=== PATIENT | male | born 1925 | race Caucasian/White ===

== ENCOUNTER 2016-12-10 10:14 | Emergency (ER) | payer MEDICARE ==
[~2016-12-10] VITALS: Ht 182.9 cm; Wt 70.5 kg
[~2016-12-10 10:14] MED LIST: ACET650T46 PO; AMLO10TA3 PO; ASPI-973 PO; BISA10EN RC; CA C1TAB29 PO; CALC200T6 PO; CIPR250T3 PO; ESOM40CA41 PO; FINA5TAB9 PO; HYDR-4003 PO; LORA10CA PO; MULT-896 PO; PHEN-773 PO; TAMS0.4C98 PO; UBID1CAP52 PO
[2016-12-10 10:23] VITALS: BP 180/72; PULSE 84; RESP 16; O2SAT 99
--- NOTE | 2016-12-10 10:57 | ED.REPORT ---
HPI-General Illness Date of Service Dec 10, 2016 ED Provider: Mode Benavidez MD 89 y/o male with a hx of HTN, inclusion body myositis, esophageal strictures s/ p dilation, and chronic dysphagia s/p PEG tube presents to the ED complaining that his peg tube fell off this morning. Pt had the PEG tube placed August, and got it replaced last week by Dr. Longo, surgeon at [facility]. Pt states that the surgeon and nurses at [facility] did not use the proper equipment and procedure when replacing the tube causing it to recurrently fall out since that time. The patient's son talked to Dr. Longo who advised the pt to come in tomorrow but they refused because the PEG tube is his only method of nutrition and the wait would be too long. There are no other complaints or concerns at this time. Nursing Notes Stated Complaint: PEG TUBE FELL OUT Chief Complaint: Male Abdominal Pain Nursing Notes Reviewed: Yes Allergies: Coded Allergies: No Known Allergies (Verified Allergy, Unknown, 12/10/16) Scheduled Amlodipine (Amlodipine) 10 Mg Tablet 10 MG PO DAILY Aspirin (Aspirin) 81 Mg Tablet 81 MG PO DAILY Ca Cmb 1/Vit D3/B-6/FA/B12/Av (Vitamin D3-Aloe 1,000 Unit Tab) 1 Each Tablet 1 EACH PO BID Calcium Citrate (Calcium Citrate) 200 Mg Tablet 400 MG PO DAILY Ciprofloxacin (Ciprofloxacin) 250 Mg Tablet 250 MG PO BID Esomeprazole Magnesium (Nexium) 40 Mg Capsule.dr 40 MG PO DAILY Finasteride (Finasteride) 5 Mg Tablet 5 MG PO DAILY Loratadine (Claritin) 10 Mg Capsule 10 MG PO DAILY Multivitamin W-Minerals/Lutein (Centrum Silver Ultra Men's Tab) 1 Each Tablet 1 EACH PO DAILY Tamsulosin (Flomax) 0.4 Mg Capsule 0.4 MG PO DAILY Ubidecarenone/Vit E Acetate (Co Q-10 100 mg Softgel) 1 Each Capsule 1 EACH PO TID Scheduled PRN Acetaminophen Extended Release (Tylenol Arthritis Pain Extended-Release) 650 Mg Tablet.er 1,300 MG PO DAILY PRN PRN For Pain Bisacodyl (Bisacodyl Rectal) 10 Mg/30 Ml Enema 10 MG RC PRN PRN PRN For Constipation Hydrocodone-Acetaminophen 5-325 mg (Hydrocodone-Acetaminophen 5-325 mg) 1 Each Tablet 1-2 TABLET PO Q4H PRN PRN For Pain Phenazopyridine (Phenazopyridine) 100 Mg Tablet 100 MG PO TID PRN PRN painful urination General Time Seen by MD: 10:46 Chief Complaint Other (Peg tube fell out) Hx Obtained From: Patient Arrived By: Walk-in Sudden in Onset?: Yes Onset Occurred: 1 - 4 hours ago Symptom Duration: Since onset Severity: Current: No pain currently Severity: Maximum: No pain Recent Healthcare: Recent doctor visit Similar Sx Previous: Yes Past Medical History Past Medical History Notes: DNR with limited interventions Admitted December 01-2015 Past Medical History Myopathy Esophageal stricture status post dilation, and status post PEG tube History of malignant hypertension alternating a demand ischemia, moderate aortic stenosis 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 Physical Exam Vital Signs Vital Signs Date Time Temp Pulse Resp B/P Pulse Ox O2 Delivery O2 Flow Rate FiO2 12/10/16 14:13 84 14 166/71 98 Room Air 12/10/16 11:29 184/86 12/10/16 10:23 36.3 84 16 180/72 99 Room Air Initial VS: Reviewed, Vital signs abnormal Head / Eyes: Atraumatic, Normocephalic, PERRL ENT: Mucous membranes moist, Conjunctiva normal, No scleral icterus Neck: Supple, Full range of motion Respiratory: Breath sounds normal, Clear to auscultation, No respiratory distress Cardiovascular: Regular rate & rhythm, Heart sounds normal, Intact distal pulses Extremities: Vascular intact, Neuro intact, No swelling, No tenderness Skin: Warm, Dry, No cyanosis Neurologic: Alert, Oriented, Nonfocal Psychiatric: Mood/affect normal, Behavior normal, Normal thought content General/Constitutional: Awake, Alert, No acute distress, Well appearing, Cooperative, Not toxic appearing Abdomen: Atraumatic, Soft, Non-tender Stoma in mid abdomen. No surrounding erythema or discharge. Re-Eval/Medical Decision Med Decision/Clinical Course 89-year-old male history of PEG tube for one year with recent change of PEG tube 2 weeks ago by his surgeon. Since then it has been coming out frequently. It has been replaced by a surgeon. It came on again this morning and surgeon recommended in the admitted to their hospital for replacement. Patient declined. He decided to come here instead. He is requesting replacement of that in our ER. Our Endo team came and replaced the PEG tube. Patient felt much better and requested to go home. He will follow-up with his surgeon. Time of Eval: 13:15 Re-Evaluation/Progress Note: The endo team replaced the peg tube while in the ED. Time of Eval: 13:47 Re-Evaluation/Progress Note: Pt rechecked. Discussed lab and imaging results and diagnosis. Informed the pt of the plan to discharge. Pt understands and agrees with plan. F/U instructions and RTER warning given. All questions addressed. Counseled Regarding: Diagnosis, Need for follow-up, When/why to return to ED Discharge & Departure Primary Impression: PEG (percutaneous endoscopic gastrostomy) adjustment/replacement/removal Disposition: Home Discharge Condition All VS Reviewed: Yes Condition: Stable Patient Instructions: How to Use and Care for Your PEG Tube (ED) Additional Instructions: Call your surgeon if your peg tube falls out again. Return to the emergency department in case of new serious symptoms. Referrals: Wyatt Jeronimo MD (PCP) Scribe Attestation Portions of this note were transcribed by David Babb and Riccardo Dickerson. I, , personally performed the history, physical exam and medical decision-making;I reviewed and confirmed the accuracy of the information in the transcribed note. Signed by David Babb and Riccardo Dickerson, Scribe. 12/10/16 13:50 copies to: Wyatt Jeronimo MD, Ben M MD Dec 10, 2016 10:57 David Babb Dec 10, 2016 11:07 RICCARDO DICKERSON Dec 10, 2016 12:50
[2016-12-10 11:29] VITALS: BP 184/86
--- NOTE | 2016-12-10 13:45 | NUR ---
PT EVALUATED PER ER MD REQUEST FOR DISLODGED PEG TUBE. PT DESCRIBES FEEDING TUBE FELL OUT THIS AM AFTER REPLACEMENT YESTERDAY AT SURGEONS OFFICE. 24 FR G-TUBE NOTED ON TABLE BUT WHEN BALLOON TESTED THERE WAS NO LEAK NOTED. 16 FR KAUR NOTED IN STOMA ON MY ARRIVAL. AFTER DISCUSSION WITH PT AND ?SON RE: REPLACEMENT, KAUR CATH WAS REMOVED EASILY AND A 20 FR G-TUBE WAS PLACED. BALLOON FILLED WITH 10ML STERILE WATER. EXTERNAL BOLSTER ADJUSTED TO LIGHTLY TOUCH SKIN AROUND STOMA. NO BLEEDING NOTED AROUND STOMA AND TOLERATED WELL BY PT. SMALL DRY DRESSING PLACED AROUND DEVICE. EXTENSION TUBING FROM OLD G-TUBE WAS RETRIEVED AND FITTED TO NEW DEVICE. REPORT TO ER MD AFTER INSERTION TO PREPARE PT FOR DISCHARGE.
[2016-12-10 14:13] VITALS: BP 166/71; PULSE 84; RESP 14; O2SAT 98
== END 2016-12-10 14:14 | disposition home or self-care (01) ==
LOC: SED 10:14
DX: Z43.1 Encounter for attention to gastrostomy (principal); I10 Essential (primary) hypertension; E78.5 Hyperlipidemia, unspecified; Z79.82 Long term (current) use of aspirin; Z87.891 Personal history of nicotine dependence

== ENCOUNTER 2016-12-17 16:49 | Inpatient (IN) | payer MEDICARE ==
[~2016-12-17] VITALS: Ht 182.9 cm; Wt 68.5 kg
[2016-12-17 16:56] VITALS: BP 149/67; PULSE 79; RESP 16; O2SAT 100
[2016-12-17 18:12] VITALS: BP 171/72; PULSE 79; RESP 14; O2SAT 98
--- NOTE | 2016-12-17 18:26 | ED.REPORT ---
HPI-General Illness Date of Service December 17, 2016 ED Provider: Ji Ribeiro MD Patient is an 89 year old male who presents to the ED complaining of pain at the site of his previous PEG tube after a replacement a week and a half ago. Associated symptoms include drainage of pus onset one week ago and constipation. He denies fever, chills, nausea, vomiting, or any other symptoms. He had his PEG tube changed by Dr. Longo at [facility] but it came out that night. He then had a new tube inserted one week ago at [facility]. Nursing Notes Stated Complaint: ABDOMINAL PAIN Chief Complaint: Male Abdominal Pain Nursing Notes Reviewed: Yes Allergies: Coded Allergies: No Known Allergies (Verified Allergy, Unknown, 12/17/16) Scheduled Amlodipine (Amlodipine) 10 Mg Tablet 10 MG PO DAILY Aspirin (Aspirin) 81 Mg Tablet 81 MG PO DAILY Ca Cmb 1/Vit D3/B-6/FA/B12/Av (Vitamin D3-Aloe 1,000 Unit Tab) 1 Each Tablet 1 EACH PO BID Calcium Citrate (Calcium Citrate) 200 Mg Tablet 400 MG PO DAILY Ciprofloxacin (Ciprofloxacin) 250 Mg Tablet 250 MG PO BID Esomeprazole Magnesium (Nexium) 40 Mg Capsule.dr 40 MG PO DAILY Finasteride (Finasteride) 5 Mg Tablet 5 MG PO DAILY Loratadine (Claritin) 10 Mg Capsule 10 MG PO DAILY Multivitamin W-Minerals/Lutein (Centrum Silver Ultra Men's Tab) 1 Each Tablet 1 EACH PO DAILY Tamsulosin (Flomax) 0.4 Mg Capsule 0.4 MG PO DAILY Ubidecarenone/Vit E Acetate (Co Q-10 100 mg Softgel) 1 Each Capsule 1 EACH PO TID Scheduled PRN Acetaminophen Extended Release (Tylenol Arthritis Pain Extended-Release) 650 Mg Tablet.er 1,300 MG PO DAILY PRN PRN For Pain Bisacodyl (Bisacodyl Rectal) 10 Mg/30 Ml Enema 10 MG RC PRN PRN PRN For Constipation Hydrocodone-Acetaminophen 5-325 mg (Hydrocodone-Acetaminophen 5-325 mg) 1 Each Tablet 1-2 TABLET PO Q4H PRN PRN For Pain Phenazopyridine (Phenazopyridine) 100 Mg Tablet 100 MG PO TID PRN PRN painful urination General Time Seen by MD: 18:25 Chief Complaint Abdominal pain Hx Obtained From: Patient, Other family... 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 Physical Exam Vital Signs Vital Signs Date Time Temp Pulse Resp B/P Pulse Ox O2 Delivery O2 Flow Rate FiO2 12/17/16 18:12 36.8 79 14 171/72 98 Room Air 12/17/16 16:56 36.6 79 16 149/67 100 Room Air Initial VS: Reviewed General/Constitutional: Well-developed, Well-nourished Head / Eyes: Atraumatic, Normocephalic Neck: Full range of motion Skin: Warm, Dry, No cyanosis Neurologic: Alert, Oriented, Nonfocal Psychiatric: Mood/affect normal, Behavior normal, Normal thought content Respiratory / Chest: Breath sounds NL, Breath sounds = bilat, No respiratory distress Cardiovascular: Heart rate NL, Regular rhythm, Heart sounds NL, No gallop, No murmurs, No rubs Abdomen: Soft PEG tube present in mid abdomen. 6 cm of erythema and induration with several regions of pustular drainage. Interpretation & Diagnostics Lab Results Interpretation Result Diagram: 12/17/16193612/17/161936 Test 12/17/16 19:05 12/17/16 19:37 Urine Color Yellow (YELLOW) Urine Appearance Hazy (CLEAR,HAZY) Urine pH 8.0 (5.0-8.0) Urine Specific [place] 1.010 (1.003-1.035) Urine Protein Tracemg/dL (NEG,TRACE) Urine Glucose (UA) Negativemg/dL (NEGATIVE) Urine Ketones Negativemg/dL (NEGATIVE) Urine Occult Blood Negative (NEGATIVE) Urine Nitrite Positive (NEGATIVE) Urine Bilirubin Negative (NEGATIVE) Urine Urobilinogen Normalmg/dL (NORMAL) Urine Leukocyte Esterase Small (NEGATIVE) Urine RBC 3-10/hpf (0-2) Urine WBC >50/hpf (0-5) Urine Epithelial Cells Occasional/hpf (NONE-MOD) Urine Crystals Amorphous phosphates Urine Bacteria None/hpf (NONE-FEW) Urine Hyaline Casts None/lpf (NONE) Urine Granular Casts None seen (NONE SEEN) Urine Waxy Casts None seen (NONE SEEN) Urine Red Blood Cell Casts None seen (NONE SEEN) Urine White Blood Cell Casts None seen (NONE SEEN) Urine Mucus None seen (None Seen) Urine Trichomonas None seen (NONE SEEN) Urine Yeast None (NONE SEEN) Urine Culture Reflexed Indicated Hold Urine Received (Received) White Blood Count 6.1th/mm3 (3.8-10.1) Red Blood Count 2.82mil/mm3 (4.40-5.80) Hemoglobin 9.2g/dL (13.8-17.2) Hematocrit 27.9% (41.0-50.0) Mean Corpuscular Volume 98.9fL (81-100) Mean Corpuscular Hemoglobin 32.6pg (27.0-35.0) Mean Corpuscular Hemoglobin Concent 33.0% (32.0-37.0) Red Cell Distribution Width 13.1% (12.3-15.4) Platelet Count 210bil/L (150-400) Neutrophils (%) (Auto) 75.1% (40-74) Lymphocytes (%) (Auto) 13.3% (14-46) Monocytes (%) (Auto) 9.1% (4-12) Eosinophils (%) (Auto) 2.3% (0-5) Basophils (%) (Auto) 0.2% (0-3) Sodium Level 137mEq/L (134-144) Potassium Level 4.1mEq/L (3.5-5.2) Chloride Level 98mEq/L (97-108) Carbon Dioxide Level 26mmol/L (18-29) Blood Urea Nitrogen 32mg/dL (8-27) Creatinine 0.54mg/dL (0.76-1.27) Estimat Glomerular Filtration Rate 152mL/min (>59) Glucose Level 96mg/dL (60-99) Lactic Acid Level 0.7mmol/L (0.4-2.0) Calcium Level 9.1mg/dL (8.5-10.1) Magnesium Level 2.1mg/dL (1.6-2.6) Total Bilirubin 0.3mg/dL (0.0-1.2) Aspartate Amino Transf (AST/SGOT) 26U/L (0-50) Alanine Aminotransferase (ALT/SGPT) 31U/L (0-44) Alkaline Phosphatase 67U/L (25-160) Total Protein 7.1g/dL (6.4-8.4) Albumin 3.8g/dL (3.4-5.0) Lipase 16U/L (13-60) Hold Fisher Top Tube Received (Received) Lab Results Interpretation: US ABDOMEN: IMPRESSION: Presumed phlegmon as discussed above in the soft tissues adjacent to the PEG tube. As discussed there are rare complications of very long-standing percutaneous tubes which can induce neoplasm formation, most typically squamous cell carcinoma. Dictated by: Kwan West M.D. on 12/17/2016 at 20:51 Approved by: Kwan West M.D. on 12/17/2016 at 20:54 Procedures Incision & Drainage Abscess I & D Abscess: 27 G needle 2 cm superficial incision made. Large amount of discharge drained. Irrigated with saline and packed and covered Time: 21:23 Procedure Performed by: ED physician (Marisa Cintron) Consent / Setup / Site Prep: Informed consent provided, Consent from patient , Time-out performed, Hand hygiene observed Location of Abscess: Mid abdomen Local Anesthesia: Lidocaine 1% (7cc ) Pus Drained: Large Irrigation: Yes Post-Procedure / Complications: Packing placed, Culture obtained, Dressing applied, Condition improved, Tolerated procedure well, Patient stable Re-Eval/Medical Decision Med Decision/Clinical Course 89-year-old male with history of PEG tube presents with significant swelling, erythema about his PEG tube site after it was recently replaced. Here in the emergency department he is afebrile with stable vital signs. Soft tissue ultrasound demonstrated fluid collection consistent with abscess. Of note radiology interpretation discusses broad differential diagnosis though clinically this resembles abscess. Incision and drainage was performed as documented above and a significant amount of purulent material was drained. Laboratory studies notable as below: UA unconvincing for UTI no leuks hematocrit 27.9 improved from one mo ago BUN 32 creat 0.54 no sig electrolyte abnL Vancomycin, ceftriaxone and started given soft tissue infection associated cellulitis. Patient admitted to hospitalist service for further management. Time of Eval: 21:22 Re-Evaluation/Progress Note: Discussed plan for admission. Patient understands and agrees with plan. All questions addressed at this time. Consultation : Referral / Consult Name: Dhiraj Hensley MD Consulted With: Hospitalist Call Returned at: 21:21 Supervisor [employer]: Will see patient, Agrees with eval, Agrees with plan, Accepts admit Note: Discussed pt case. Accepts admit. Counseled Regarding: Diagnosis, Lab results, Need for admission Discharge & Departure Primary Impression: Abscess Additional Impressions: Cellulitis Site of cellulitis: other site Qualified Code: L03.818 - Cellulitis of other sites Status post insertion of percutaneous endoscopic gastrostomy (PEG) tube Leukocytosis Leukocytosis type: unspecified Qualified Code: D72.829 - Elevated white blood cell count, unspecified Disposition: ADMITTED TO HOSPITAL Referrals: Wyatt Jeronimo MD (PCP) Scribe Attestation Portions of this note were transcribed by Mary Lou Callahan. I, Dr. Ribeiro personally performed the history, physical exam and medical decision-making; I reviewed and confirmed the accuracy of the information in the transcribed note. Signed by: Mary Lou Callahan 12/17/16, 2200 copies to: Wyatt Jeronimo MD, Beck O MD December 17, 2016 18:26 MARY LOU CALLAHAN December 17, 2016 18:59
[2016-12-17 19:40] LABS: BASOPHILS % (AUTO) 0.2 % (0-3); EOSINOPHILS % (AUTO) 2.3 % (0-5); MONOCYTES % (AUTO) 9.1 % (4-12); Mean Corpuscular Hemoglobin 32.6 pg (27.0-35.0); Mean Corpuscular Volume 98.9 fL (81-100); NEUTROPHILS % (AUTO) 75.1 % (40-74); Platelet Count 210 bil/L (150-400)
[2016-12-17] MEDS ORDERED: HYDROmorphone 0.5 mg/0.5 mL iSecure Syringe IVPUSH ONE ×2 (19:50→21:40)
[2016-12-17 20:04] LABS: Magnesium 2.1 mg/dL (1.6-2.6)
--- NOTE | 2016-12-17 20:55 | DRSVH ---
PROCEDURE: US ABDOMEN, LIMITED ([id number]) INDICATIONS: asses for abscess about PEG tube site TECHNIQUE: Real-time focused scanning was performed of the abdomen, with image documentation. COMPARISON: None. FINDINGS: Within the subcutaneous fat layer of the abdominal wall adjacent to the area of the PEG tu be placement there is a complex ovoid combination of increased vascularity and scattered hypodensity in an area measuring up to 3.2 x 1.5 x 1.0 cm, which likely represents a manifestation of phlegmon in the setting of relatively short term PEG tube placement. An abscess is not found. In the setting o f long-term percutaneous tube placement neoplasm formation can occur. Please correlate clinically. Statistically infection is considered much more likely. IMPRESSION: Presumed phlegmon as discussed above in the soft tissues adjacent to the PEG tube. As d iscussed there are rare complications of very long-standing percutaneous tubes which can induce neopl asm formation, most typically squamous cell carcinoma. Dictated by: Kwan West M.D. on 12/17/2016 at 20:51 Approved by: Kwan West M.D. on 12/17/2016 at 20:54
[2016-12-17] MEDS ORDERED: cefTRIAXone Inj 2,000 MG in Dextrose 5% 50 ML IV STA (21:16)
[2016-12-17] MEDS ORDERED: Vancomycin Dose per Pharmacist XX ONE (21:20)
[2016-12-17] MEDS ORDERED: Alum-Mag Hydrox-Simeth 30 mL Suspension PO PRN ×2 (21:25→21:55)
[2016-12-17] MEDS ORDERED: Ondansetron 2 mg/mL 2 mL Inj IVPUSH PRN (21:25)
[2016-12-17] MEDS ORDERED: Polyethylene Glycol (PEG) 17 Gm Powder PO PRN (21:55)
[2016-12-17] MEDS ORDERED: Vancomycin Inj 1,000 MG in IV Premix 1 EACH IV ONE (22:00)
--- NOTE | 2016-12-17 22:24 | PCM.HPMED ---
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 He further complains of constipation in that same interim with only 1 very small difficult BM 4 days ago. He and his family attempted to manage the peg inflammation with neosporin gel but that proved inadequate to halt the progression of his likely cellulitis. He further complains of chills and weakness, he is unable to ambulate independently at baseline but can usually assist with transfers and has been unable to do so for the past few days. He denies chest pain, SOB, nausea, vomiting, diarrhea, or cough. In the ED a sample of the expressed purulent fluid from around the PEG site was sent for culture and sensitivity and the patient was started on Ceftriaxone and Vanco, and US of the LLQ mass was obtained that revealed a likely phlegmon. Review of Systems: Comprehensive ROS negative except as outlined above in the HPI Allergies Coded Allergies: No Known Allergies (Verified Allergy, Unknown, 12/17/16) Home Medications Scheduled Amlodipine (Amlodipine) 10 Mg Tablet 10 MG PO DAILY Aspirin (Aspirin) 81 Mg Tablet 81 MG PO DAILY Ca Cmb 1/Vit D3/B-6/FA/B12/Av (Vitamin D3-Aloe 1,000 Unit Tab) 1 Each Tablet 1 EACH PO BID Calcium Citrate (Calcium Citrate) 200 Mg Tablet 400 MG PO DAILY Ciprofloxacin (Ciprofloxacin) 250 Mg Tablet 250 MG PO BID Esomeprazole Magnesium (Nexium) 40 Mg Capsule.dr 40 MG PO DAILY Finasteride (Finasteride) 5 Mg Tablet 5 MG PO DAILY Loratadine (Claritin) 10 Mg Capsule 10 MG PO DAILY Multivitamin W-Minerals/Lutein (Centrum Silver Ultra Men's Tab) 1 Each Tablet 1 EACH PO DAILY Tamsulosin (Flomax) 0.4 Mg Capsule 0.4 MG PO DAILY Ubidecarenone/Vit E Acetate (Co Q-10 100 mg Softgel) 1 Each Capsule 1 EACH PO TID Scheduled PRN Acetaminophen Extended Release (Tylenol Arthritis Pain Extended-Release) 650 Mg Tablet.er 1,300 MG PO DAILY PRN PRN For Pain Bisacodyl (Bisacodyl Rectal) 10 Mg/30 Ml Enema 10 MG RC PRN PRN PRN For Constipation Hydrocodone-Acetaminophen 5-325 mg (Hydrocodone-Acetaminophen 5-325 mg) 1 Each Tablet 1-2 TABLET PO Q4H PRN PRN For Pain Phenazopyridine (Phenazopyridine) 100 Mg Tablet 100 MG PO TID PRN PRN painful urination PMH Myopathy Esophageal stricture status post dilation, and status post PEG tube History of malignant hypertension alternating a demand ischemia, moderate aortic stenosis 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 Reports: Hyperlipidemia, Hypertension Surgical History Esophageal dilation Back surgery 30 years ago Feeding tube Family History No relevant family history in this gentleman who has likely outlived any relevant history Social History Hx Alcohol Use: No Hx Substance Use: No Hx Tobacco Use: No Smoking Status: Former Smoker Exam Vital Signs Vital Sign - Last Date Time Temp Pulse Resp B/P Pulse Ox O2 Delivery O2 Flow Rate FiO2 12/17/16 18:12 36.8 79 14 171/72 98 Room Air Exam Gen: A/O x3 pleasant elderly gentleman in mild acute distress due to abdominal pain Neck: Supple, non tender, no JVD, no thyromegaly HEENT: PERRL, EOMI, mucous membranes slightly dry, no scleral icterus, no conjunctival pallor, hearing aids in place CV: RRR, loud 3/6 systolic ejection murmur best heard at right sternal border, no rubs or gallops Resp: Lungs CTA BL, no wheezing rales or rhonchi Abd: Tender to palpation in erythematous area surrounding PEG tube site, Thin bloody discharge from the PEG exit site, large roughly football sized and shaped firm rubbery mass in LLQ just superior to waistline, BS Diminished throughout Extr: mild BL LE edema, no cyanosis or clubbing Neuro: CN 2-12 grossly intact, no focal neurologic deficit Lab and Diagnostics Labs Item Value Date Time Red Blood Count 2.82 mil/mm3 L 12/17/161936 Neutrophils (%) (Auto) 75.1 % H 12/17/161936 Lymphocytes (%) (Auto) 13.3 % L 12/17/161936 Monocytes (%) (Auto) 9.1 % 12/17/161936 Eosinophils (%) (Auto) 2.3 % 12/17/161936 Basophils (%) (Auto) 0.2 % 12/17/161936 Estimat Glomerular Filtration Rate 152 mL/min 12/17/161936 Lactic Acid Level 0.7 mmol/L 12/17/161936 Calcium Level 9.1 mg/dL 12/17/161936 Magnesium Level 2.1 mg/dL 12/17/161936 Total Bilirubin 0.3 mg/dL 12/17/161936 Aspartate Amino Transf (AST/SGOT) 26 U/L 12/17/161936 Alanine Aminotransferase (ALT/SGPT) 31 U/L 12/17/161936 Alkaline Phosphatase 67 U/L 12/17/161936 Total Protein 7.1 g/dL 12/17/161936 Albumin 3.8 g/dL 12/17/161936 Lipase 16 U/L 12/17/161936 Result Diagram: 12/17/16193612/17/161936 Microbiology abscess drainage culture and sensitivity pending . Additional Diagnostics: PROCEDURE: US ABDOMEN, LIMITED IMPRESSION: Presumed phlegmon as discussed above in the soft tissues adjacent to the PEG tube. As discussed there are rare complications of very long- standing percutaneous tubes which can induce neoplasm formation, most typically squamous cell carcinoma. Dictated by: Kwan West M.D. on 12/17/2016 at 20:51 Approved by: Kwan West M.D. on 12/17/2016 at 20:54 . Assessment & Plan Rianna Lim is an 89 year old man with a PMH as listed above who presents with a 4 day history of pain and erythema around his PEG tube site, and associated growth of a LLQ mass with concordant constipation. 1. Cellulitis, present on admission, acute. Active -Vanco and Zosyn for broad coverage with C&S are processing -Consider surgical consult tomorrow AM to evaluate PEG tube -NS @ 100 ml/hr 2. LLQ mass, present on admission, acute. Active -US indicative of likely phlegmon -Given that the growth of this mass corresponds with the onset of constipation in this gentleman I am concerned that it may be partially obstructing his colon -CT abd and pelvis with contrast for further evaluation -may consider needle biopsy depending upon results of imaging 3. Constipation, present on admission, acute on chronic. Active -As above I am concerned there may be a may effect from his LLQ mass -Withold laxative or cathartic until this mass can be characterized. 4. HTN, present on admission, chronic. Active -Continue home Amlodipine 10 mg PO daily 5. BPH with chronic painful urination, present on admission, chronic. Active -Continue home Tamsulosin 0.4 mg -Continue home Phenazopurine 100 mg tid PRN -Continue home Finasteride 5 mg PO daily 6. Chronic GERD, present on admission, chronic. Active -Continue home Nexium -Maalox as needed Code Status: DNR/DNI Disposition: Inpatient, anticipated length of stay >2 midnights due to severity of condition and complexity of treatment plan. Pain Evaluation: Adequate Pain Control GI Prophylaxis: Proton Pump Inhibitor VTE Prophylaxis: Other (active bleeding from PEG tube site and possible hematoma vs phlegmon in LLQ make anticoagulation undesirable) VTE Mechanical Devices: Intermittant Pneumatic CD Resuscitation Status: DNR/DNI:Do Not Resuscitate/Intubate Attending Statement The patient was seen and examined together with Dr. Cedillo on 12/17 and I agree with the history, exam and plan as outlined in the note above. Hipolito Cedillo DO December 17, 2016 22:24 Dhiraj Hensley MD December 18, 2016 01:46
[2016-12-17 22:25] VITALS: BP 167/58; PULSE 83; RESP 18; O2SAT 98
[2016-12-17] MEDS ORDERED: Phenazopyridine 97.5 mg Tablet PO PRN (22:30)
[2016-12-17] MEDS: 0.9% Sodium Chloride 1,000 ML IV SCH (22:47)
[2016-12-17 22:48] LABS: APPEARANCE,URINE HAZY (CLEAR,HAZY); COLOR,URINE YELLOW (YELLOW); OCCULT BLOOD,URINE NEGATIVE (NEGATIVE)
[2016-12-17 22:49] LABS: UROBILINOGEN,URINE NORMAL (NORMAL)
--- NOTE | 2016-12-17 23:32 | NUR ---
Admission note Pt alert and oriented x 3. Understands use of call light and to make nurse aware of any needs. Denies pain. Pt reports that he takes his meds via his PEG tube at his care facility. notified. Orders received to use PEG tube for oral meds and oral contrast for CT later tonight. Pt is not clear on his current medications. Plan to notify the [facility] for current list. IV abx infusing. Pt is afebrile. Report given to Priti Hay RN.
[2016-12-18] MEDS: Sodium Chloride LOK Flush 10 mL Syringe IVFLUSH SCH ×3 (00:26→16:30)
[2016-12-18] MEDS: Piperacillin-Tazo 3.375 Gm Inj 3.375 GM in Dextrose 5% Minibag Plus 50 ML IV SCH ×3 (00:26→17:56)
--- NOTE | 2016-12-18 03:07 | PCM.CONPHA ---
Subjective Date of Service: December 18, 2016 Requesting Provider: Hipolito Cedillo DO Pain around PEG site History of Present Illness Cellulitis around PEG site Reason for Pharmacy Consult: Vancomycin Dosing Objective Assessment/Plan Assessment/Plan A/ - 89 y/o male patient required Vancomycin therapy to empirically cover cellulitis around his feeding tube - Afebrile, WBC: 6.1, blood cultures pending - In ED, patient received loading dose Vancomycin 1g @0030 12/18 and Rocephin - Comitant abx: Zosyn - Wt: 68.4 kg, ht: 182.8cm, SCr: 0.54 mg/dL, estimated clearance ~80 ml/min, BMI : 20.5 kg/m2, Vd ~48L, t1/2 ~ 10 hrs - Surgical consult in the morning P/ - Recommend Vancomycin 750mg iv q12h. Trough level ordered before 3rd dose @ 2230 today. This regimen would produce a trough around 13. Pharmacy will follow and make necessary adjustment Thank you for consulting clinical pharmacy in the care of this patient 12/19/2016 - Trough level came back at 12.7, appropriate to treat cellulitis. Will continue with current dose. - Plan to OR tomorrow for further exploration/drainage of infected site Noelle Guidyr December 18, 2016 03:07 Urine pH 8.0 (5.0-8.0) Urine Specific [place] 1.010 (1.003-1.035) Urine Protein Tracemg/dL (NEG,TRACE) Urine Glucose (UA) Negativemg/dL (NEGATIVE) Urine Ketones Negativemg/dL (NEGATIVE) Urine Occult Blood Negative (NEGATIVE) Urine Nitrite Positive (NEGATIVE) Urine Bilirubin Negative (NEGATIVE) Urine Urobilinogen Normalmg/dL (NORMAL) Urine Leukocyte Esterase Small (NEGATIVE) Urine RBC 3-10/hpf (0-2) Urine WBC >50/hpf (0-5) Urine Epithelial Cells Occasional/hpf (NONE-MOD) Urine Crystals Amorphous phosphates Urine Bacteria None/hpf (NONE-FEW) Urine Hyaline Casts None/lpf (NONE) Urine Granular Casts None seen (NONE SEEN) Urine Waxy Casts None seen (NONE SEEN) Urine Red Blood Cell Casts None seen (NONE SEEN) Urine White Blood Cell Casts None seen (NONE SEEN) Urine Mucus None seen (None Seen) Urine Trichomonas None seen (NONE SEEN) Urine Yeast None (NONE SEEN) Urine Culture Reflexed Indicated Hold Urine Received (Received) White Blood Count 6.1th/mm3 (3.8-10.1) Red Blood Count 2.82mil/mm3 (4.40-5.80) Hemoglobin 9.2g/dL (13.8-17.2) Hematocrit 27.9% (41.0-50.0) Mean Corpuscular Volume 98.9fL (81-100) Mean Corpuscular Hemoglobin 32.6pg (27.0-35.0) Mean Corpuscular Hemoglobin Concent 33.0% (32.0-37.0) Red Cell Distribution Width 13.1% (12.3-15.4) Platelet Count 210bil/L (150-400) Neutrophils (%) (Auto) 75.1% (40-74) Lymphocytes (%) (Auto) 13.3% (14-46) Monocytes (%) (Auto) 9.1% (4-12) Eosinophils (%) (Auto) 2.3% (0-5) Basophils (%) (Auto) 0.2% (0-3) Sodium Level 137mEq/L (134-144) Potassium Level 4.1mEq/L (3.5-5.2) Chloride Level 98mEq/L (97-108) Carbon Dioxide Level 26mmol/L (18-29) Blood Urea Nitrogen 32mg/dL (8-27) Creatinine 0.54mg/dL (0.76-1.27) Estimat Glomerular Filtration Rate 152mL/min (>59) Glucose Level 96mg/dL (60-99) Lactic Acid Level 0.7mmol/L (0.4-2.0) Calcium Level 9.1mg/dL (8.5-10.1) Magnesium Level 2.1mg/dL (1.6-2.6) Total Bilirubin 0.3mg/dL (0.0-1.2) Aspartate Amino Transf (AST/SGOT) 26U/L (0-50) Alanine Aminotransferase (ALT/SGPT) 31U/L (0-44) Alkaline Phosphatase 67U/L (25-160) Total Protein 7.1g/dL (6.4-8.4) Albumin 3.8g/dL (3.4-5.0) Lipase 16U/L (13-60) Hold Fisher Top Tube Received (Received) Noelle Guidry December 18, 2016 03:07
[2016-12-18 03:55] VITALS: BP 157/66; PULSE 71; RESP 16; O2SAT 97
--- NOTE | 2016-12-18 05:51 | NUR ---
Urinary retention Indwelling elizalde placed for urinary retention > 1000cc per bladder scan. Pt reports relief after placement, finally able to get some sleep. Med rec entered based on list sent from [facility]. Houlry rounding ongoing.
[2016-12-18 05:52] LABS: BASOPHILS % (AUTO) 0.2 % (0-3); EOSINOPHILS % (AUTO) 1.9 % (0-5); MONOCYTES % (AUTO) 8.8 % (4-12); Mean Corpuscular Hemoglobin 33.4 pg (27.0-35.0); NEUTROPHILS % (AUTO) 77.6 % (40-74); Platelet Count 196 bil/L (150-400)
[2016-12-18] MEDS ORDERED: ERYT1OIN7 OP (06:16)
[2016-12-18] MEDS ORDERED: LOPE2CAP PO (06:16)
[2016-12-18] MEDS ORDERED: OXYB5TAB10 PO (06:16)
[2016-12-18] MEDS ORDERED: TAMS0.4C98 PO (06:16)
[2016-12-18] MEDS ORDERED: ONDA-53 PO (06:16)
[2016-12-18] MEDS ORDERED: TERA5CAP6 PO (06:16)
[2016-12-18] MEDS ORDERED: AMLO5TAB2 PO (06:16)
[2016-12-18] MEDS ORDERED: HYDR30CR98 RC (06:16)
[2016-12-18] MEDS ORDERED: KEN1C EXT (06:16)
--- NOTE | 2016-12-18 08:22 | DRSVH ---
PROCEDURE: CT ABDOMEN AND PELVIS WITH CONTRAST ([id number]) INDICATIONS: LLQ mass TECHNIQUE: After the administration of oral and intravenous contrast, 5 mm thick sections acquired from the diap hragms to the symphysis. 5 mm thick coronal and sagittal reformats were performed. For radiation do se reduction, the following was used: automated exposure control, adjustment of mA and/or kV accordi ng to patient size. COMPARISON: [facility], CT, IVP-CT (ABD W/WO;PEL W/W/O), 06/07/2014, 9:23. FINDINGS: Image quality: Excellent. ABDOMEN: Lung bases: Lung bases show bibasilar subsegmental atelectasis. Heart size is normal. Solid organs: Liver and spleen are normal in size and enhancement. 2 subcentimeter areas of decrease d attenuation in the liver are unchanged and consistent with small 5 average cysts. Gallbladder is w ithin normal limits.. Biliary system is non-dilated. Pancreas enhances normally. No adrenal nodule s. Kidneys are normal in size and enhancement. There is bilateral mild hydronephrosis and hydrourete r to the bladder. A hydronephrosis and hydroureter are no findings since the previous CT. There is a 4 mm stone in the floor of the bladder on the left side. The bladder is mildly distended. The wall is minimally diffusely thickened. Peritoneum and bowel: Stomach shows a gastrotomy tube placed since the previous CT. The small bowel, and colon loops are normal in caliber and wall thickness. No free fluid or air. Multiple sigmoid d iverticula without diverticulitis are noted. Nodes and vessels: No retroperitoneal or mesenteric adenopathy. Aorta and inferior vena cava are no rmal in caliber. Miscellaneous: No ventral hernias. PELVIS: Genitourinary: The bladder is mildly distended and wall is mildly diffusely thickened. There is a st one in the dependent portion of the bladder on the left side. Prostate is prominently enlarged, nodul ar and heterogeneous in contrast enhancement. I do not appreciate any loss of fat planes around the p rostate or adenopathy in the pelvis or inguinal areas. Miscellaneous: No inguinal hernias or adenopathy. Bones: L4, L5, and S1 lower lumbar spine surgery has been performed. No vertebral body compression fr actures. IMPRESSION: 1. Mild bilateral hydronephrosis and hydroureter to the bladder. This is a new finding since the prec eding CT and 2014. Cause is not appreciated other than probable chronic outlet obstruction. Bladder is mildly distended. Wall of the bladder is mildly diffusely thickened. The prostate is diff usely prominently enlarged, heterogeneous, and nodular. No evidence for adenopathy or blastic lytic bone changes. 2. Gastrotomy tube, lumbar spine surgery, sigmoid diverticulosis are noted as well. Dictated by: Leodan Deras M.D. on 12/18/2016 at 8:08 Approved by: Leodan Deras M.D. on 12/18/2016 at 8:20
[2016-12-18] MEDS: Vancomycin Dose per Pharmacist XX SCH (08:30)
[2016-12-18 09:04] VITALS: BP 167/62; PULSE 75; RESP 16; O2SAT 97
[2016-12-18] MEDS: 0.9% Sodium Chloride 1,000 ML IV SCH ×2 (10:00→17:52)
[2016-12-18] MEDS: Pantoprazole 4 mg/mL 10 mL Inj IVPUSH SCH (10:02)
[2016-12-18] MEDS ORDERED: ACET-2766 PO (10:31)
[2016-12-18] MEDS ORDERED: CHOL10008 PO (10:31)
[2016-12-18] MEDS ORDERED: Vancomycin Inj 750 MG in 0.9% Sodium Chloride 250 ML IV SCH (11:00)
[2016-12-18 13:12] VITALS: BP 150/64; PULSE 79; RESP 18; O2SAT 96
[2016-12-18] MEDS: HYDROcodone-APAP 5-325 mg Tablet PO PRN (13:21)
--- NOTE | 2016-12-18 14:30 | PCM.PNMED ---
Subjective Date of Service December 18, 2016 Subjective Patient was seen and examined at bedside today. Patient denies any chest pain, shortness of breath, nausea, vomiting, diarrhea. Patient states that he feels "fair" at this time. Overnight events: None Exam Vital Signs Vital Sign - Last Date Time Temp Pulse Resp B/P Pulse Ox O2 Delivery O2 Flow Rate FiO2 12/18/16 13:12 37.1 79 18 150/64 96 Room Air Intake and Output 12/17/16 12/17/16 12/18/16 Cumulative From/Thru 15:00 23:00 07:00 12/17/16 16:56 - 12/18/16 06:50 Intake Total 603 ml 603 ml Output Total 1025 ml 1025 ml Balance -422 ml -422 ml Intake Oral 0 ml 0 ml IV Total 603 ml 603 ml Output Urine Total 1025 ml 1025 ml # Bowel Movements 0 0 Exam Physical Exam: GEN: Patient was awake, alert, responding appropriately to questions HEENT: Pupils equal round and reactive to light, extraocular eye muscles intact , Neck soft supple, trachea midline, nomocephalic/atraumatic CV: +S1/S2, regular rate and rhythm, systolic blowing murmur auscultated Respiratory: CTAB, no wheezes, rales, rhonchi GI: +bowel sounds x4, soft, compressible, mild tenderness to palpation around the PEG tube site, positive drainage from cellulitic lesion near the PEG tube EXT: no clubbing, cyanosis, edema Neuro: Cranial nerves II-XII grossly intact Psych: mood and affect were appropriate IVs and Medications Medications Reviewed: Medications were reviewed in detail Lab and Diagnostics Result Diagram: 12/18/1631 12/18/16530 Microbiology abscess drainage culture and sensitivity pending . Additional Diagnostics PROCEDURE: US ABDOMEN, LIMITED IMPRESSION: Presumed phlegmon as discussed above in the soft tissues adjacent to the PEG tube. As discussed there are rare complications of very long- standing percutaneous tubes which can induce neoplasm formation, most typically squamous cell carcinoma. Dictated by: Kwan West M.D. on 12/17/2016 at 20:51 Approved by: Kwan West M.D. on 12/17/2016 at 20:54 . Assessment & Plan Rianna Lim is an 89 year old man with a PMH as listed above who presents with a 4 day history of pain and erythema around his PEG tube site, and associated growth of a LLQ mass with concordant constipation. Cellulitis, present on admission, acute. Active -Continue Vanco and Zosyn for broad coverage with C&S are processing -Surgery was consulted and case was discussed with Dr. Subramanian. PEG tube was evaluated and no further surgical management is necessary at this time -Continue NS @ 100 ml/hr -Gram stain of the abscess shows gram-positive cocci sensitivities to follow -Urine culture negative 1 day -Blood cultures pending LLQ mass, present on admission, acute. Active -US indicative of likely phlegmon -CT scan shows sigmoid diverticulosis, no evidence for adenopathy or blastic lesions in the bone -Left lower quadrant mass could be secondary to hydronephrosis if the patient does not decompress with Beltran catheter usage will consider consult to urology Constipation, present on admission, acute on chronic. Active -Start senna and MiraLAX at this time HTN, present on admission, chronic. Active -Continue home Amlodipine 10 mg PO daily BPH with chronic painful urination, present on admission, chronic. Active -Continue home Tamsulosin 0.4 mg -Continue home Phenazopurine 100 mg tid PRN -Continue home Finasteride 5 mg PO daily -CT shows bladder is mildly distended with bilateral hydronephrosis and hydroureter to the bladder -Beltran catheter has been placed and is currently out putting clear urine -We will consider urology consult if decreasing urinary output is noted or increase in pain Chronic GERD, present on admission, chronic. Active -Continue home Nexium -Maalox as needed Diet: Patient is currently on a clear liquid diet and Jevity 1.5 to gravity via the PEG tube Code Status: DNR/DNI Disposition: The patient currently is being treated for cellulitis near the PEG tube. We will continue with IV antibiotics and make adjustments to his IV antibiotics as culture and sensitivities are known. We will continue to monitor the patient. GI Prophylaxis: Proton Pump Inhibitor VTE Prophylaxis: Other (active bleeding from PEG tube site and possible hematoma vs phlegmon in LLQ make anticoagulation undesirable) VTE Mechanical Devices: Intermittant Pneumatic CD Resuscitation Status: DNR/DNI:Do Not Resuscitate/Intubate Rosalinda Estevez DO December 18, 2016 14:29
--- NOTE | 2016-12-18 14:42 | CONS ---
[address] [address] CONSULTATION REPORT PATIENT: ALEX HWANG : 1925 MR#: [id number] ADMIT: 12/17/2016 JOB ID: [id number] DATE OF SERVICE: 12/18/2016 CHIEF COMPLAINT: I and D site adjacent to the PEG tube. HISTORY OF PRESENT ILLNESS: The patient is an 89-year-old male who presented to the emergency department last night due to pain and swelling just adjacent to the PEG tube site. The patient has had this PEG tube since August of 2015 and it was placed up in [place]. The patient has history of esophageal strictures and dysphagia and myopathy which resulted in the PEG tube placement. The patient has had his PEG tube fall out several times over this past month and it was initially treated by Dr. Longo at [facility]. The patient came to our hospital about a week and a half ago and the PEG tube was replaced by our endo nurse, Petey. The patient reports no trouble using the PEG tube over the past several days, but for the past week or so, there has been increasing pain and swelling just to the right side of the PEG tube exit site. According to patient's son there were stitches placed on the skin to hold the G-tube in place. Last night in emergency department, an I and D was performed to the right side of the PEG tube exit site and it drained a large amount of pus. A wick was placed and the patient was subsequently admitted for IV antibiotic therapy. I was consulted by the hospitalist for evaluation. The patient also reports having ongoing constipation for the past week or so. He does report having had a small bowel movement two days ago. A CT scan was also performed last night of his abdomen and pelvis which did not show any obvious pathology except for a L flank hernia. The G-tube is seen to be in place. PAST MEDICAL HISTORY: 1. Dysphagia and esophageal stricture resulting in a PEG tube placement up in [place] in August of 2015. 2. Myositis or myopathy. 3. Aortic stenosis. 4. History of malignant hypertension. 5. Feeding tube placement. 6. Back surgery 30 years ago. MEDICATIONS AT THIS TIME: Include Zosyn, vancomycin, amlodipine, Protonix, Senna and Maalox Plus. ALLERGIES: None. SOCIAL HISTORY: The patient lives in an assisted living place in [place]. He has a son and a daughter. He used to work for [employer]. FAMILY HISTORY: Noncontributory to the current clinical situation. REVIEW OF SYSTEMS: Positive for pain at the PEG tube site and I and D performed last night in the ED. PHYSICAL EXAMINATION: The patient currently in a hospital bed in no acute distress. His BMI is 20.5, temperature is 36.8, blood pressure 167/62. Pulse is 75. Respirations 16. Head is normocephalic, atraumatic. There is no scleral icterus. The patient wears a hearing aid. Neck is supple. Heart is regular rate. Lungs are clear. Abdomen is not distended. There is a PEG tube right in the middle of his epigastrium and just to the right of the PEG tube exit site is a vertical incision that is about 1.5 cm in length and there is some purulence draining out of it. The patient is tender with gentle palpation at the I and D site. There is no gross erythema seen today around the I and D site or around the PEG tube exit site. The remainder of the abdomen is soft and nontender. Extremities shows no clubbing and no cyanosis. Neurologically, the patient is awake and alert and answers appropriately. LABORATORY EXAMINATION: Last night showed a white blood count of 6.1 and this morning it is 5.8, hematocrit 28.7, platelet count is 196. Sodium is 138, potassium 4.2, creatinine 0.53. Lipase was 16. ASSESSMENT: This is an 89-year-old male with an infected site just to the right of the PEG tube exit site. According to the patient's son, there were stitches placed on the skin after one of the G-tube replacements done at [place]. Those sutures may be the cause of the subcutaneous infection and abscess. The abscess was I and D'd last night by the ED provider. The patient should continue with IV antibiotics and I will get Wound Care involved to take a look and make recommendations on wound care. Hopefully with the abscess drained, the patient's pain and his constipation will improve. TOMER
--- NOTE | 2016-12-18 14:55 | NUR ---
NUTRITION ASSESSMENT: Assess: 89 YO male, admitted for abscess and cellulitis around the PEG site. Pt has severe esophageal stricture, PEG tube placed in 2015. Normally self-administers 5 cans Jevity 1.2 via gravity feeds. Pt and son state that they switched to jevity 1.2 recently as pt stated the 1.5 gave him diarrhea and the 1.2 gravity feeds faster than the 1.5. PMHx: Esophageal stricture s/p dilation, malignant HTN, aortic stenosis, sporadic inclusion body myositis, anemia, HLD. LABS: Reviewed. Cr 0.53, Glu 105, Alb 3.9. MEDICATIONS: Reviewed. DIET: Clear Liquids. PO intake 0-50% of meals. NUTRITION SUPPORT (HOME): Jevity 1.2 x 5 cans (1185 mL/day) provides 1425 kcal, 66 g pro, 955 mL free h20 GI symptoms/stool: No BM recorded yet ANTHROPOMETRICS: Current Wt: 68.4 kg ESTIMATED NEEDS: Calories: 1068-1294 kcal (25-30 kcal/kg BW) Protein: 70-100 g (1-1.5 g/kg BW) Fluids: 8043-7141 mL (1 ml/kcal) NUTRITION DIAGNOSIS: 1) Inadequate oral intake related to esophageal stricture as evidenced by chronic PEG with chronic TF. INTERVENTION: 1) Currently Jevity 1.2 is not on our TF formulary. Pt OK with using Jevity 1.5 while admitted. Pt would like to keep similar home TF schedule. Recommend bolus TF of Jevity 1.5 x 5 bolus feeds (200 mL/bolus) per day (800, 1100, 1400, 1700, 2000). Flush PEG with 50 ML H20 before and after each bolus. TF will provide 1500 kcals, 64 g protein, 1220 ml free H2O (TF + water flushes) per day. Pt is also consuming some clear liquids which will hopefully be enough to meet 100% of pt est. kcal and fluid needs. MONITOR/EVALUATE: TF tolerance, labs, nutritional status. Will continue to monitor per high nutrition risk.
--- NOTE | 2016-12-18 15:22 | NUR ---
Social Work- Initial Assessment Data: See Initial Assessment. Pt is a 89 year old male admitted 12/17/16 for abscess, cellulitis per H&P. Surgery is following pt. Wound Care is following pt. Pt to receive IV abx while hospitalized, sensitivities pending. Pt's payor is KATHR[employer] and [employer]esha[employer] Germaine. Pt's PCP is Wyatt Jeronimo MD. Pt's readmit score is not listed. DPOA is Luis Felipe Raphael, . SW met with pt at bedside regarding discharge plan, SW role explained. Pt alert and oriented x3. Pt resides at [facility] where he receives assistance with driving, meals, laundry, transfers, and bathing. [place] and is able to do his own transfers with his transfer board. Pt has a BSC and bath bench as well. Pt has a PEG tube placed which he manages independently with monthly check ins from a private pay RN through [employer]. Pt is on Jevity 1.5 at [facility]. Pt has a history of [facility] RN in the past, as well as [facility] from Jul 01- Oct 02. Pt has no LTC or VA benefits. SW to follow for IV abx needs. Pt will need assessment from [facility] prior to discharge. SW will continue to follow for pt's discharge plan. Assessment: Pt who is wheelchair bound at [facility] and who may need IV abx. Plan: SW to follow for IV abx needs. Pt will need assessment from [facility] prior to discharge. SW will continue to follow for pt's discharge planning needs. CHUCKY Rashid Addendum: 12/18/16 at 1525 by MARCELLE LORENZO Amended: Links added. Addendum: 12/18/16 at 1552 by MARCELLE LORENZO SS T/C to Fidelia from [facility] who stated that pt will not need an assessment prior to discharge as long as he remains at current level of functioning. SW will continue to follow. Ingrid Lorenzo, [employer] WORK[employer]
--- NOTE | 2016-12-18 15:43 | NUR ---
Wound Care Wound orders received patient seen at bedside. Multiple areas of undrained pus around peg tube sit, patient still painful to touch in the area. Cleaned I&D wound with saline and Qtip as much as possible but patient too painful to continue. Contacted surgical service to follow up for further incision and drainage. Wound will follow up as needed.
[2016-12-18] MEDS: Vancomycin Inj 750 MG in 0.9% Sodium Chloride 250 ML IV SCH (15:46)
[2016-12-18 17:32] VITALS: BP 155/56; PULSE 77; RESP 20; O2SAT 97
--- NOTE | 2016-12-18 18:17 | NUR ---
Tube Feeding Tube feeding started this afternoon per orders. Pt tolerated 200ml gravity fed tube feed with no c/o pain or nausea. Will continue to monitor peg tube site. Dressing remains C/D/I. Pt states there is only pain when "someone is messing with it". Pt rates pain 0/10 presently.
[2016-12-18 19:40] VITALS: BP 121/56; PULSE 76; RESP 18; O2SAT 95
[2016-12-18] MEDS ORDERED: Vancomycin Serum Trough XX ONE (22:30)
[2016-12-19] MEDS: Sodium Chloride LOK Flush 10 mL Syringe IVFLUSH SCH ×3 (00:30→16:30)
[2016-12-19] MEDS: Piperacillin-Tazo 3.375 Gm Inj 3.375 GM in Dextrose 5% Minibag Plus 50 ML IV SCH ×3 (00:48→18:01)
[2016-12-19] MEDS: 0.9% Sodium Chloride 1,000 ML IV SCH ×3 (00:48→23:52)
--- NOTE | 2016-12-19 02:24 | NUR ---
Tube Feeding/ Pain Patient tolerated bolus TF 200cc @ 2000 via gravity with 50cc H2O flush before and after administration. Denied any nausea of pain during administration. Patient states he only experiences pain at PEG tube site, when it is being manipulated. Patient has been able to sleep the majority of the shift so far. Will continue to monitor, and continue Q1 hour checks.
[2016-12-19] MEDS: Vancomycin Inj 750 MG in 0.9% Sodium Chloride 250 ML IV SCH ×2 (04:27→15:48)
[2016-12-19 05:25] VITALS: BP 143/60; PULSE 77; RESP 16; O2SAT 96
[2016-12-19 06:06] LABS: Mean Corpuscular Hemoglobin 32.6 pg (27.0-35.0); Mean Corpuscular Volume 98.9 fL (81-100)
[2016-12-19] MEDS: Pantoprazole 4 mg/mL 10 mL Inj IVPUSH SCH (07:35)
[2016-12-19] MEDS: Vancomycin Dose per Pharmacist XX SCH (08:30)
--- NOTE | 2016-12-19 10:54 | PCM.PNSURG ---
Subjective Date of Service: December 19, 2016 Date of Service: December 19, 2016 Visit Information: Reason for Visit Abscess, Cellulitis Surgery/Surgery Date Post-Op Day # Date of Admission: December 17, 2016 at 21:51 Hospital Day # Subjective: Continues to have periumbilical abdominal pain. Denies fevers/chills, nausea/ vomiting, denies chest pain or shortness of breath. Denies diarrhea, states constipation. White count 5.6, afebrile. Objective Vital Sign- Last 8 Hours Date Time Temp Pulse Resp B/P Pulse Ox O2 Delivery O2 Flow Rate FiO2 12/19/16 05:25 36.7 77 16 143/60 96 Room Air Intake and Output- Last 8 Hour 12/19/16 Cumulative From/Thru 07:00 12/17/16 16:56 - 12/19/16 06:27 Intake Total 1070 ml 3378 ml Output Total 700 ml 3025 ml Balance 370 ml 353 ml Intake Oral 0 ml 480 ml IV Total 1070 ml 2898 ml Output Urine Total 700 ml 3025 ml # Bowel Movements 0 0 General: Alert, Oriented X3, Cooperative Lungs: Clear to Auscultation, Clear to Percussion Heart: Murmur (soft blowing systolic murmur heard best at left and right second intercostal sternal border) Abdomen: Other (PEG tube insertion site and middle of epigastrium very tender to palpation. Area to the patient's right side of PEG tube erythematous with purulent drainage from a lesion approximately 1 cm in diameter. ) SURGICAL WOUND : Wound General Appearence: Erythema Dressing & Drainage Status: Purulent Drainage Noted Result Diagram: 12/19/16 0534 12/19/16 0534 Diagnostics: . CT ABDOMEN AND PELVIS WITH CONTRAST IMPRESSION: 1. Mild bilateral hydronephrosis and hydroureter to the bladder. This is a new finding since the preceding CT and 2013. Cause is not appreciated other than probable chronic outlet obstruction. Bladder is mildly distended. Wall of the bladder is mildly diffusely thickened. The prostate is diffusely prominently enlarged, heterogeneous, and nodular. No evidence for adenopathy or blastic lytic bone changes. 2. Gastrotomy tube, lumbar spine surgery, sigmoid diverticulosis are noted as well. Dictated by: Leodan Deras M.D. on 12/18/2016 at 8:08 Assessment & Plan Impression Assessment: 1.Cellulitis surrounding PEG tube insertion 2. Constipation Plan: 1. Continue antibiotics Vanco and Zosyn, culture & sensitivities pending 2. On-call surgeon contacted for repeat I&D 3. MiraLAX Problems: VTE Prophylaxis: Other (active bleeding from PEG tube site and possible hematoma vs phlegmon in LLQ make anticoagulation undesirable) Resuscitation Status: DNR/DNI:Do Not Resuscitate/Intubate Attending Statement: I agree with Dr. Mccann's assessment and plan. RYLIE MCCANN DO December 19, 2016 10:54 Calos Subramanian MD January 01, 2017 13:01 -Gram stain of the abscess shows gram-positive cocci sensitivities to follow -Urine culture negative 1 day -Blood cultures pending LLQ mass, present on admission, acute. Active -US indicative of likely phlegmon -CT scan shows sigmoid diverticulosis, no evidence for adenopathy or blastic lesions in the bone -Left lower quadrant mass could be secondary to hydronephrosis if the patient does not decompress with Beltran catheter usage will consider consult to urology Constipation, present on admission, acute on chronic. Active -Start senna and MiraLAX at this time HTN, present on admission, chronic. Active -Continue home Amlodipine 10 mg PO daily BPH with chronic painful urination, present on admission, chronic. Active -Continue home Tamsulosin 0.4 mg -Continue home Phenazopurine 100 mg tid PRN -Continue home Finasteride 5 mg PO daily -CT shows bladder is mildly distended with bilateral hydronephrosis and hydroureter to the bladder -Beltran catheter has been placed and is currently out putting clear urine -We will consider urology consult if decreasing urinary output is noted or increase in pain Chronic GERD, present on admission, chronic. Active -Continue home Nexium -Maalox as needed Problems: VTE Prophylaxis: Other (active bleeding from PEG tube site and possible hematoma vs phlegmon in LLQ make anticoagulation undesirable) Resuscitation Status: DNR/DNI:Do Not Resuscitate/Intubate RYLIE MCCANN DO December 19, 2016 10:54
[2016-12-19] MEDS ORDERED: HYDROmorphone 0.5 mg/0.5 mL iSecure Syringe IVPUSH ONE (11:05)
--- NOTE | 2016-12-19 11:47 | NUR ---
OR OR called and states," NPO after midnight with NO tubefeedings after midnight and surgery tomorrow at 0900AM." Charge nurse aware, patient aware and notified hospitalist.
--- NOTE | 2016-12-19 11:57 | NUR ---
Wound Care Patient seen at bedside with surgery, Dr Calvo to consult on patient for further needed debridement and whether that shoulsd happen at bedside or OR. Wound to follow up on Thursday with this patient for likely wound care needs.
[2016-12-19 12:00] VITALS: BP 147/54; PULSE 76; RESP 16; O2SAT 96
--- NOTE | 2016-12-19 13:55 | PCM.PNMED ---
Subjective Date of Service December 19, 2016 Subjective feels ok. still has some discomfort around feeding tube site. denies: headache, lightheadedness, chest pain, worsening shortness of breath, cough, nausea, vomiting, diarrhea, dysuria, sweats, chills, shakes Exam Vital Signs Vital Sign - Last Date Time Temp Pulse Resp B/P Pulse Ox O2 Delivery O2 Flow Rate FiO2 12/19/16 12:00 36.9 76 16 147/54 96 Room Air Intake and Output 12/18/16 12/18/16 12/19/16 Cumulative From/Thru 15:00 23:00 07:00 12/17/16 16:56 - 12/19/16 06:27 Intake Total 1705 ml 1070 ml 3378 ml Output Total 1300 ml 700 ml 3025 ml Balance 405 ml 370 ml 353 ml Intake Oral 480 ml 0 ml 480 ml IV Total 1225 ml 1070 ml 2898 ml Output Urine Total 1300 ml 700 ml 3025 ml # Bowel Movements 0 0 Exam Physical Exam: Gen: no acute distress HEENT: moist mucus membranes Respiratory: CTAB, unlabored respirations Cardiovascular: RRR, no m/r/g Abdomen: soft, apart from around feeding tube site non-tender, non-distended. + bowel sounds x 4 quadrants. erythema, drainage around feeding tube site. no rebound tenderness or peritoneal signs. Extr: no edema b/l lower extremities Psyc: appropriate, cooperative IVs and Medications Medications Reviewed: Medications were reviewed in detail Lab and Diagnostics Result Diagram: 12/19/16 0534 12/19/16 0534 Microbiology abscess drainage culture and sensitivity pending . Additional Diagnostics PROCEDURE: US ABDOMEN, LIMITED IMPRESSION: Presumed phlegmon as discussed above in the soft tissues adjacent to the PEG tube. As discussed there are rare complications of very long- standing percutaneous tubes which can induce neoplasm formation, most typically squamous cell carcinoma. Dictated by: Kwan West M.D. on 12/17/2016 at 20:51 Approved by: Kwan West M.D. on 12/17/2016 at 20:54 . Assessment & Plan Rianna Lim is an 89 year old man with a PMH as listed above who presents with a 4 day history of pain and erythema around his PEG tube site, and associated growth of a LLQ mass with concordant constipation. Cellulitis, present on admission, acute. Active -Continue Vanco and Zosyn for broad coverage with C&S are processing await cx results. per surgery team plan for OR tomorrow to attempt further exploration / drainage of infected site -- acute urinary retention. hydronephrosis elizalde placed with good output. cont to monitor. can do renal u/s to evaluate for improvement of hydronephrosis tomorrow. Constipation, present on admission, acute on chronic. Active -Start senna and MiraLAX at this time HTN, present on admission, chronic. Active -Continue home Amlodipine 10 mg PO daily BPH with chronic painful urination, present on admission, chronic. Active -Continue home Tamsulosin 0.4 mg -Continue home Phenazopurine 100 mg tid PRN -Continue home Finasteride 5 mg PO daily -CT shows bladder is mildly distended with bilateral hydronephrosis and hydroureter to the bladder -Elizalde catheter has been placed and is currently out putting clear urine Chronic GERD, present on admission, chronic. Active -Continue home Nexium -Maalox as needed Diet: Patient is currently on a clear liquid diet and Jevity 1.5 to gravity via the PEG tube. npo after midnight. Code Status: DNR/DNI Disposition: pending cx results. final abx plan, surgery dispo. going to or tomorrow. GI Prophylaxis: Proton Pump Inhibitor VTE Prophylaxis: Other (active bleeding from PEG tube site and possible hematoma vs phlegmon in LLQ make anticoagulation undesirable) VTE Mechanical Devices: Anti-Embolic stockings Resuscitation Status: DNR/DNI:Do Not Resuscitate/Intubate Indra Hazel MD December 19, 2016 13:55
[2016-12-19] MEDS ORDERED: Vancomycin Serum Trough XX ONE (14:30)
[2016-12-19] MEDS ORDERED: Polyethylene Glycol (PEG) 17 Gm Powder PO PRN (17:05)
[2016-12-19] MEDS ORDERED: Polyethylene Glycol (PEG) 17 Gm Powder PEG PRN (17:41)
--- NOTE | 2016-12-19 19:29 | NUR ---
Constipation PRN Miralax given as ordered via peg tube for constipation. Bowel sounds present all four quadrants and passing gas per patient report. Alert and oriented X3. Stable vital signs. stable mood. Tube feedings as ordered. Dr. Calvo at bed side this morning. wound care nurse at bed side to see patient.
[2016-12-19 20:01] VITALS: BP 136/60; PULSE 81; RESP 18; O2SAT 95
[2016-12-20] VITALS (11 sets, daily range): BP systolic 128–181; BP diastolic 53–70; PULSE 63–85; RESP 14–18; O2SAT 93–100
[2016-12-20] MEDS: Sodium Chloride LOK Flush 10 mL Syringe IVFLUSH SCH ×4 (00:15→22:26)
[2016-12-20] MEDS: Piperacillin-Tazo 3.375 Gm Inj 3.375 GM in Dextrose 5% Minibag Plus 50 ML IV SCH ×2 (00:19→09:24)
[2016-12-20] MEDS: 0.9% Sodium Chloride 1,000 ML IV SCH (00:19)
[2016-12-20] MEDS: Vancomycin Inj 750 MG in 0.9% Sodium Chloride 250 ML IV SCH ×2 (04:44→15:34)
--- NOTE | 2016-12-20 04:52 | NUR ---
Activity Patient tolerated 2000 PEG tube feeding well this evening. Patient remains on strict NPO, and no tube feedings have been administered since 1999. Patient states he only experiences pain with manipulation of the PEG tube site. IV is running NS @100 with int abx. Heels floated, and barrier cream applied to buttock to protect skin. No skin breakdown noted. Has been able to achieve adequate sleep this evening. Will continue to monitor, and continue Q1 hour checks.
[2016-12-20 06:03] LABS: BASOPHILS % (AUTO) 0.2 % (0-3); EOSINOPHILS % (AUTO) 5.2 % (0-5); MONOCYTES % (AUTO) 11.2 % (4-12); Mean Corpuscular Hemoglobin 33.6 pg (27.0-35.0); Mean Corpuscular Volume 97.8 fL (81-100); NEUTROPHILS % (AUTO) 68.2 % (40-74); Platelet Count 188 bil/L (150-400)
[2016-12-20 06:32] LABS: Magnesium 1.9 mg/dL (1.6-2.6)
[2016-12-20] MEDS: Vancomycin Dose per Pharmacist XX SCH (08:30)
--- NOTE | 2016-12-20 09:02 | PCM.HPANE ---
Patient Data Date of Service: December 20, 2016 Surgeon Admitting Provider:Dhiraj Hensley MD Attending Provider:Dhiraj Hensley MD Primary Care Physician:Wyatt Jeronimo MD Other Provider: Reason for Visit Abscess, Cellulitis Ht/WT & BMI Body Mass Index 20.42 Allergies Coded Allergies: No Known Allergies (Verified Allergy, Unknown, 12/17/16) Past Anesthesia History Anesthesia History: Denies:: Anesthesia Reactions Diabetes History Hx Diabetes?: No MRSA MRSA: No Medications Active Scripts Phenazopyridine 100 Mg [id number] Mg PO TID PRN painful urination #5 TABLET Ref 0 Prov:Williams Mcpherson MD 03/23/16 Reported Medications Acetaminophen (Tylenol Arthritis)650 Mg Tablet.er650 Mg PO DAILY PRN For Pain 12/18/16 Cholecalciferol (Vitamin D3) (Vitamin D3)1,000 Unit Tab.chew1,000 Unit PO 12/18/16 Ondansetron 4 Mg Tablet4 Mg PO EVERY 4 HOURS PRN For Nausea 12/18/16 Triamcinolone Acet (Triamcinolone Acetonide Cream)1 Applic/0.25 Gm Cr1 Applic EXT BID PRN For Itching #60 GM Ref 0 12/18/16 Loperamide 2 Mg Capsule2 Mg PO Q4H PRN AD 12/18/16 Hydrocortisone 2.5 % Cream.appl30 Gm RC BID PRN For Itching 12/18/16 Tamsulosin (Flomax)0.4 Mg Capsule0.4 Mg PO HS Ref 0 12/18/16 Terazosin 5 Mg Capsule5 Mg PO HS Ref 0 12/18/16 Erythromycin Ophth Oint 3.5 Gm Oint...g.1 Appl OP TID #1 TUBE Ref 0 12/18/16 Oxybutynin Chloride 5 Mg Tablet5 Mg PO BID Ref 0 12/18/16 Amlodipine 5 Mg Tablet5 Mg PO DAILY Ref 0 12/18/16 Hydrocodone-Acetaminophen 5-325 mg 1 Each Tablet1-2 Tablet PO Q4H PRN For Pain Ref 0 12/02/15 Bisacodyl (Bisacodyl Rectal)10 Mg/30 Ml Enema10 Mg RC PRN PRN For Constipation 12/02/15 Loratadine (Claritin)10 Mg Jknnjda58 Mg PO DAILY Ref 0 12/02/15 Calcium Citrate 200 Mg Ciftnh811 Mg PO DAILY 06/12/15 Ubidecarenone/Vit E Acetate (Co Q-10 100 mg Softgel)1 Each Capsule1 Each PO TID 06/12/15 Ca Cmb 1/Vit D3/B-6/FA/B12/Av (Vitamin D3-Aloe 1,000 Unit Tab)1 Each Tablet1 Each PO BID 06/12/15 Multivitamin W-Minerals/Lutein (Centrum Silver Ultra Men's Tab)1 Each Tablet1 Each PO DAILY 06/12/15 Aspirin 81 Mg Uwrhrb98 Mg PO DAILY Ref 0 06/12/15 Esomeprazole Magnesium (Nexium)40 Mg Capsule.dr40 Mg PO DAILY #90 06/12/15 Finasteride 5 Mg Tablet5 Mg PO DAILY #90 06/12/15 Discontinued Reported Medications Acetaminophen Extended Release (Tylenol Arthritis Pain Extended-Release)650 Mg Tablet.er1,300 Mg PO DAILY PRN For Pain 12/02/15 Discontinued Scripts Ciprofloxacin 250 Mg Drgsmf595 Mg PO BID #20 TABLET Ref 0 Prov:Williams Mcpherson MD 03/23/16 Tamsulosin (Flomax)0.4 Mg Capsule0.4 Mg PO DAILY #30 CAPSULE Prov:Cyntiha Baptiste DO 12/04/15 Amlodipine 10 Mg Ivesie98 Mg PO DAILY 30 Days Ref 0 Prov:Case Bishop MD 06/15/15 History History of ENT Problems?: Yes HEENT History: Positive for:: Cataracts (removed) Dysphagia (stricture) Denture Type: Full- Upper Full- Lower Teeth Condition: No Teeth Hx of Heart Problems?: Yes Cardiovascular History: Positive for:: Heart Murmur Hypertension Denies:: Cardiac Surgery Chest Pain Congestive Heart Failure Irregular Heartbeat Pacemaker Thrombophlebitis Other History/Comments Aortic stenosis Hx of Respiratory Problem?: No Respiratory History: Denies:: Tuberculosis Hx Neurologic Problems?: Yes Other Neurological Pertinent: myopathy, weakness Hx of GI Problems?: Yes Other GI Pertinent History: PEG tube Hx of Problems?: Yes Genitourinary History: Positive for:: Urinary Tract Infection Denies:: HX of Hemodialysis Kidney Stones HX of Peritoneal Dialysis: No Male Hx: Denies:: Prostate Problems Scrotal Mass Testicular Surgery Hx Musculoskeletal Problems?: Yes Musculoskeletal History: Positive for:: Back Injury ([place] 1982) Denies:: Joint Replacement Musculoskeletal Trauma Hx of Psycho/Social Problems?: No Hx Surgeries?: Yes (back surgery, peg tube placement) Hx Any Other Health Problems?: No Other History: Positive for:: Hospitalization Denies:: Cancer Thyroid Disease History Blood Transfusions: Positive for:: Accept Blood Products? Denies:: Blood Transfusions Hx Diabetes: No Hx Alcohol Use: NoHx Substance Use: No Smoking Status: Former Smoker Have You Smoked inLast 12 mo: No Stop/Bang Treated for Sleep Apnea?: No Do You Have a CPAP Machine?: No S-Snoring: Do You Snore Loudly: No T-Tired: feel tired, fatigued: No O-Obsered: Observed not breath: No P-Blood Pressure: treated: Yes B- Body Mass Index > 35 kg/m2: No A- Age over 50: Yes N- Neck Large Circumference: No G- Gender Male: Yes LISA Total Score: 2 LISA Risk Assessment: Low Risk, <3 Yes Risk Assessment Category Category 1A: Patient has history of documented sleep apnea, and HAS NOT received any narcotic, sedative or anesthesia administration during this stay. Category 1B: Patient has history of documented sleep apnea, and HAS received any narcotic , sedative or anesthesia administration during this stay Category 2: Patient has SUSPECTED Obstructive Sleep Apnea, and HAS received any narcotic , sedative or anesthesia administration during this stay. Category 3: Patient has SUSPECTED Obstructive Sleep Apnea and HAS NOT received narcotic, sedative or anesthesia administration during this stay. Category 4: Outpatient in Procedural Areas with known sleep apnea or who screen positive for High Risk via the STOP/BANG questionnaire. Exam Exam Vital Signs Vital Signs Date Time Temp Pulse Resp B/P Pulse Ox O2 Delivery O2 Flow Rate FiO2 12/20/16 05:03 36.5 84 16 152/61 96 Room Air General Appearance: Alert, Oriented X3, Cooperative, No Acute Distress HEENT/AIRWAY: MP 2, Neck Movement (normal), Mouth Opening (normal) Lungs: Clear to Auscultation, Clear to Percussion Heart: Murmur (III/ THOM) Meds/Labs/Diagnostics Admission Meds Current Medications Hydromorphone HCl (Dilaudid Inj) 0.5 mg ONCE ONCE IVPUSH Last administered on 12/19/16t 11:16; Start 12/19/16 at 11:05; Stop 12/19/16 at 11:11; Status DC Labs Test 12/17/16 19:05 12/17/16 19:37 12/18/16 05:31 12/19/16 05:34 Urine Color Yellow (YELLOW) Urine Appearance Hazy (CLEAR,HAZY) Urine pH 8.0 (5.0-8.0) Urine Specific [place] 1.010 (1.003-1.035) Urine Protein Tracemg/dL (NEG,TRACE) Urine Glucose (UA) Negativemg/dL (NEGATIVE) Urine Ketones Negativemg/dL (NEGATIVE) Urine Occult Blood Negative (NEGATIVE) Urine Nitrite Positive (NEGATIVE) Urine Bilirubin Negative (NEGATIVE) Urine Urobilinogen Normalmg/dL (NORMAL) Urine Leukocyte Esterase Small (NEGATIVE) Urine RBC 3-10/hpf (0-2) Urine WBC >50/hpf (0-5) Urine Epithelial Cells Occasional/hpf (NONE-MOD) Urine Crystals Amorphous phosphates Urine Bacteria None/hpf (NONE-FEW) Urine Hyaline Casts None/lpf (NONE) Urine Granular Casts None seen (NONE SEEN) Urine Waxy Casts None seen (NONE SEEN) Urine Red Blood Cell Casts None seen (NONE SEEN) Urine White Blood Cell Casts None seen (NONE SEEN) Urine Mucus None seen (None Seen) Urine Trichomonas None seen (NONE SEEN) Urine Yeast None (NONE SEEN) Urine Culture Reflexed Indicated Hold Urine Received (Received) Lactic Acid Level 0.7mmol/L (0.4-2.0) Lipase 16U/L (13-60) Hold Fisher Top Tube Received (Received) Phosphorus Level 3.0mg/dL (2.5-4.9) Procalcitonin 0.06ng/mL (0.00-0.08) Test 12/19/16 14:25 12/20/16 05:45 Vancomycin Level Trough 12.7mcg/mL White Blood Count 6.5th/mm3 (3.8-10.1) Red Blood Count 2.71mil/mm3 (4.40-5.80) Hemoglobin 9.1g/dL (13.8-17.2) Hematocrit 26.5% (41.0-50.0) Mean Corpuscular Volume 97.8fL (81-100) Mean Corpuscular Hemoglobin 33.6pg (27.0-35.0) Mean Corpuscular Hemoglobin Concent 34.3% (32.0-37.0) Red Cell Distribution Width 13.1% (12.3-15.4) Platelet Count 188bil/L (150-400) Neutrophils (%) (Auto) 68.2% (40-74) Lymphocytes (%) (Auto) 15.0% (14-46) Monocytes (%) (Auto) 11.2% (4-12) Eosinophils (%) (Auto) 5.2% (0-5) Basophils (%) (Auto) 0.2% (0-3) Sodium Level 141mEq/L (134-144) Potassium Level 4.0mEq/L (3.5-5.2) Chloride Level 105mEq/L (97-108) Carbon Dioxide Level 23mmol/L (18-29) Blood Urea Nitrogen 16mg/dL (8-27) Creatinine 0.43mg/dL (0.76-1.27) Estimat Glomerular Filtration Rate 198mL/min (>59) Glucose Level 110mg/dL (60-99) Calcium Level 8.5mg/dL (8.5-10.1) Magnesium Level 1.9mg/dL (1.6-2.6) Total Bilirubin 0.4mg/dL (0.0-1.2) Aspartate Amino Transf (AST/SGOT) 21U/L (0-50) Alanine Aminotransferase (ALT/SGPT) 19U/L (0-44) Alkaline Phosphatase 59U/L (25-160) Total Protein 5.5g/dL (6.4-8.4) Albumin 3.1g/dL (3.4-5.0) Plan Impression Patient chart reviewed, patient interviewed and anesthestic plan with risks, benefits, and alternatives discussed, and informed consent obtained. NPO per Anesth. Guidelines: No ASA Physical Status: ASA3 Severe Disease Anesthetic Plan: GA Bene/Risks/Altern/Consents: Yes HP Complete Prior to Induction: Yes Beny Anderson MD December 20, 2016 09:02
[2016-12-20] MEDS ORDERED: Lactated Ringer's 1,000 ML IV ONE (09:11)
[2016-12-20] MEDS ORDERED: Lactated Ringer's 500 ML IV PRN (09:14)
[2016-12-20] MEDS ORDERED: Lactated Ringer's 1,000 ML IV SCH (09:14)
[2016-12-20] MEDS ORDERED: hydrALAZINE 20 mg/mL Inj IVPUSH PRN (09:15)
[2016-12-20] MEDS ORDERED: MetoCLOpramide 5 mg/mL 2 mL Inj IVPUSH PRN (09:15)
[2016-12-20] MEDS ORDERED: Ondansetron 2 mg/mL 2 mL Inj IVPUSH PRN (09:15)
[2016-12-20] MEDS ORDERED: Atropine 0.4 mg/mL Inj IVPUSH PRN (09:15)
[2016-12-20] MEDS ORDERED: EPHEDrine Sulfate 50 mg/mL Inj IVPUSH PRN (09:15)
[2016-12-20] MEDS ORDERED: Dexamethasone 4 mg/mL Inj IVPUSH PRN (09:15)
[2016-12-20] MEDS ORDERED: Phenylephrine 10,000 mCg/mL Inj IVPUSH PRN (09:15)
[2016-12-20] MEDS ORDERED: HYDROmorphone 1 mg/mL Inj IVPUSH PRN (09:15)
[2016-12-20] MEDS ORDERED: Labetalol 5 mg/mL 4 mL Inj IV PRN (09:15)
[2016-12-20] MEDS: Pantoprazole 4 mg/mL 10 mL Inj IVPUSH SCH (09:26)
[2016-12-20] MEDS ORDERED: Bupivacaine-MPF 0.25%/EPI 30 mL Inj INJ ONE (09:33)
--- NOTE | 2016-12-20 09:54 | PCM.ANEP1 ---
Post Anesthesia Phase 1 PACU Phase 1 Assessment Date of Service: December 20, 2016 Vital Signs 128/59 84 18 100% FM Anesthetic Administered: MAC Level of Alertness: Sleepy, easy to arouse STARKEY's with Equal Strength: Yes Pain: No Pain Scale Score: 0 Nausea or Vomiting: No Oxygen Delivery: Room Air Lungs: Clear to Auscultation, Clear to Percussion Summary Tolerated sedation well Complications: No Follow up Care: No Patient Instructions Provided: Yes Beny Anderson MD December 20, 2016 09:54
--- NOTE | 2016-12-20 10:08 | NUR ---
JONE Patient off of floor.
[2016-12-20] MEDS: fentaNYL-PF 50 mCg/mL 2 mL Inj IVPUSH PRN ×2 (10:09→10:17)
--- NOTE | 2016-12-20 11:22 | NUR ---
Social Work-readiness for discharge: Data:EMR reviewed. Pt is on day 3 of hospitalization for abscess per H&P. Pt is not medically stable for discharge at this time, anticipate 1-2 more days. MD anticipates pt to be on oral abx at discharge. Pt to have wound care prior to discharge. Pt has a peg tube at baseline and does tube feeds at [facility]. BILLIE called and spoke with Faviola at [facility] who states she would like to look at Clinical information prior to making a decision if they need to come and re-assess pt. BILLIE faxed updated clinicals information for review to [phone]. Faviola states that if pt does need HH they prefer [facility]. BILLIE will continue to follow. Assessment:Pt who lives at [facility]. Plan:Pt to likely discharge back to [facility]-assisted living when medically stable. Updated clinicals have been faxed for review and the [facility] will make a decision if they need to come and reassess pt prior to return. R/O HH services. BILLIE will continue to follow. CHUCKY Benjamin Addendum: 12/20/16 at 1216 by ASHLEY HOPKINS SS BILLIE received a call back from Faviola at [facility]. Faviola states she spoke with the rehabilitation case coordinator who confirms that if SW can have pt's wound care plan set up prior to discharge then they can take him back without coming and completing a bedside assessment. Wound care to be determine post surgery today. Soheila to person to touch base with tomorrow at the [facility] if pt is ready to discharge. BILLIE will continue to follow. CHUCKY Benjamin
--- NOTE | 2016-12-20 11:25 | OP ---
[address] [address] OPERATIVE REPORT PATIENT: ALEX HWANG : 1925 MR#: [id number] ADMIT: 12/17/2016 JOB ID: [id number] DATE OF SURGERY: 12/20/2016 SURGEON: Calos Subramanian M.D. PROCESSOR HELPER: None. ANESTHESIA: Local with sedation. PREOPERATIVE DIAGNOSIS(ES): Abdominal wall abscesses x2. POSTOPERATIVE DIAGNOSIS(ES): Abdominal wall abscesses x2. PRINCIPAL PROCEDURE: Incision and drainage of abdominal wall abscess x2. INDICATION FOR PROCEDURE: The patient is an 89-year-old male with a longstanding PEG tube who has abdominal wall abscesses on both sides of his PEG tube. The right side of his PEG tube was I and D'd in the emergency department two nights ago. PRINCIPAL FINDING: Successful additional I and D to the right side of his PEG tube for a total length of 4 cm and a new I and D to the left side of his PEG tube for 2 cm. PROCEDURE COURSE: The patient was brought to the operating table and was provided with IV sedation. The patient's PEG tube site was then prepped and draped in the usual sterile fashion. A time-out was performed. Just to the right side of his PEG tube, there was an old I and D wound. This was first anesthetized with additional local anesthetic and the incision was extended to a total of 4 cm. No obvious purulence was encountered, but we were able to debride some necrotic fat and necrotic subcu and remove those and further exploration within this wound did not show any additional undrained abscesses. Next, we turned our attention to the left side of the PEG tube. There was a slightly raised mound of what appears to be an abscess. This was first anesthetized with local anesthesia and a longitudinal incision was made directly over this mound of tissue and we did not get any obvious pus. There was also necrotic skin and fatty tissue that was able to be debrided sharply. Copious irrigation was carried out of both wounds. The left side incision was 2 cm in length. Additional probing using the Luisa clamp into the subcu did not show any undrained abscesses. We did not violate the track of the G-tube. Next both wounds were then packed with 1/4-inch Nu Gauze. A sterile dressing was then placed over the wound and underneath the flange of the PEG tube. The patient was then taken back to the recovery room in stable satisfactory condition.
[2016-12-20] MEDS ORDERED: Ketamine 10 mg/mL 20 mL Inj ONE (11:38)
[2016-12-20] MEDS ORDERED: Propofol 10,000 mCg/mL 20 mL Inj ONE (11:38)
[2016-12-20] MEDS ORDERED: fentaNYL-PF 50 mCg/mL 2 mL Inj ONE (11:38)
[2016-12-20] MEDS: HYDROcodone-APAP 5-325 mg Tablet PO PRN (12:45)
--- NOTE | 2016-12-20 13:18 | NUR ---
Surgery Pt to surgery at 0900 for abdominal/peg tube abscess. Report given to pleater. Pt back from surgery at approximately 10:30am. Pt alert, states that he was not currently in pain. Per pleater abscess was removed, area packed with gauze and covered with drain dressing. Pt to be followed up with by wound care/clinic. Pt received 100 fentanyl and 5mg Dilaudid for pain. Per MD orders ok to resume tube feeds.
--- NOTE | 2016-12-20 13:54 | NUR ---
NUTRITION ASSESSMENT: Assess: 89 YO male admitted with abscess and cellulitis around PEG tube site. Pt with severe esophageal stricture, PEG tube placed in 2015. Pt. normally self-administers 5 cans Jevity 1.2 via gravity feed. Pt and son state that they switched to Jevity 1.2 recently as the 1.5 formula gave him diarrhea. Abdominal wall abscesses I&D'd today for which enteral feeding was on hold. Order received to restart enteral feeding, per surgery. PMHx: Esophageal stricture s/p dilation, malignant HTN, aortic stenosis, sporadic inclusion body myositis, anemia, HLD. LABS: Reviewed. Cr 0.43, Glu 110, Alb 3.1. MEDICATIONS: Reviewed. DIET: NPO. NUTRITION SUPPORT (HOME): Jevity 1.2 x 5 cans (1185 mL/day) provides 1425 kcal, 66 g pro, 955 mL free h20. ENTERAL FEEDING: Bolus Jevity 1.5 x 5 bolus feeds (200 mL/bolus) per day (800, 1100, 1400, 1700, 2000). Flush PEG with 50 ML H20 before and after each bolus. Enteral feeding will provide 1500 kcal, 64 g protein, 1220 ml free H2O (TF + water flushes) per day. GI symptoms/stool: No BM reported x 3 D. ANTHROPOMETRICS: Current Wt: 68.4 kg, BMI 20.0 kg/m2. Admit weight: 68.4 kg. ESTIMATED NEEDS: Calories: 4148-5774 kcal (25-30 kcal/kg BW) Protein: 70-100 g (1-1.5 g/kg BW) Fluids: 6152-9717 mL (1 ml/kcal) NUTRITION DIAGNOSIS: 1) Inadequate oral intake related to esophageal stricture as evidenced by chronic PEG with chronic enteral feeding - PERSISTS. INTERVENTION: 1) Monitor sufficiency of enteral feeding for possible increase in goal rate to meet nutrient needs. MONITOR/EVALUATE: Enteral feeding tolerance, labs, nutritional status. Will continue to monitor per high nutrition risk guidelines. Addendum: 12/22/16 at [address] Pt c/o diarrhea on Jevity 1.5, [facility] does not stock Jevity 1.2 which pt. has previously been on with good results. Spoke with social work, pt to discharge today at 1400 and facility pt discharging to has Jevity 1.2. Recommend pt resume home tube feeding regimen of bolus Jevity 1.2 x 5 cans (1185 mL/day, 237ml each feeding) provides 1425 kcal, 66 g pro, 955 mL free h20, flushing PEG with 50ml H20 before/after each bolus.
--- NOTE | 2016-12-20 14:15 | PCM.PNMED ---
Subjective Date of Service December 20, 2016 Subjective doing ok today denies: headache, lightheadedness, chest pain, worsening shortness of breath, cough, abdominal pain, nausea, vomiting, diarrhea, dysuria, sweats, chills, shakes Exam Vital Signs Vital Sign - Last Date Time Temp Pulse Resp B/P Pulse Ox O2 Delivery O2 Flow Rate FiO2 12/20/16 11:51 36.6 71 16 181/70 97 Room Air 12/20/16 10:24 3 Intake and Output 12/19/16 12/19/16 12/20/16 Cumulative From/Thru 15:00 23:00 07:00 12/17/16 16:56 - 12/20/16 06:16 Intake Total 847 ml 332 ml 4557 ml Output Total 900 ml 820 ml 4745 ml Balance -53 ml -488 ml -188 ml Intake Oral 0 ml 0 ml 480 ml IV Total 847 ml 332 ml 4077 ml Output Urine Total 900 ml 820 ml 4745 ml # Bowel Movements 0 0 Exam Physical Exam: Gen: no acute distress HEENT: moist mucus membranes Respiratory: CTAB, unlabored respirations Cardiovascular: RRR, 3/6systolic heart murmur. Abdomen: soft, apart from around feeding tube site non-tender, non-distended. + bowel sounds x 4 quadrants. erythema, drainage around feeding tube site. no rebound tenderness or peritoneal signs. Extr: no edema b/l lower extremities Psyc: appropriate, cooperative IVs and Medications Medications Reviewed: Medications were reviewed in detail Lab and Diagnostics Result Diagram: 12/20/16 0545 12/20/16544 Microbiology abscess drainage culture and sensitivity pending . Additional Diagnostics PROCEDURE: US ABDOMEN, LIMITED IMPRESSION: Presumed phlegmon as discussed above in the soft tissues adjacent to the PEG tube. As discussed there are rare complications of very long- standing percutaneous tubes which can induce neoplasm formation, most typically squamous cell carcinoma. Dictated by: Kwan West M.D. on 12/17/2016 at 20:51 Approved by: Kwan West M.D. on 12/17/2016 at 20:54 . Assessment & Plan Rianna Lim is an 89 year old man with a PMH as listed above who presents with a 4 day history of pain and erythema around his PEG tube site, and associated growth of a LLQ mass with concordant constipation. Cellulitis with abscess present on admission, acute. Active -cx mrsa. cont vanc. stop zosyn. surgery today. -- acute urinary retention. hydronephrosis elizalde placed with good output. cont to monitor. renal u/s Constipation, present on admission, acute on chronic. Active bowel regimen HTN, present on admission, chronic. Active -Continue home Amlodipine 10 mg PO daily BPH with chronic painful urination, present on admission, chronic. Active -Continue home Tamsulosin 0.4 mg -Continue home Phenazopurine 100 mg tid PRN -Continue home Finasteride 5 mg PO daily -CT shows bladder is mildly distended with bilateral hydronephrosis and hydroureter to the bladder -Elizalde catheter has been placed and is currently out putting clear urine Chronic GERD, present on admission, chronic. 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 which is the cause of his difficulty swallowing and need for the peg tube. he follows with neurology as an outpt for this issue. Diet: Patient is currently on a clear liquid diet and Jevity 1.5 to gravity via the PEG tube Code Status: DNR/DNI Disposition: pending final abx plan. surgery dispo. GI Prophylaxis: Proton Pump Inhibitor VTE Prophylaxis: Sub-Q Enoxaparin, Other (active bleeding from PEG tube site and possible hematoma vs phlegmon in LLQ make anticoagulation undesirable) Resuscitation Status: DNR/DNI:Do Not Resuscitate/Intubate Indra Hazel MD December 20, 2016 14:15
--- NOTE | 2016-12-20 14:35 | DRSVH ---
PROCEDURE: US RENAL SONOGRAM INDICATIONS: hydronephrosis TECHNIQUE: Real-time scanning was performed of the kidneys and bladder, with image documentation. COMPARISON: None. FINDINGS: Kidneys: Kidneys are normal in size. Right kidney measures 9.1 cm long; left kidney measures 10.2 c m long. Right renal cortical thickness is 7 cm; left renal cortical thickness is a cm. Renal cortic al echotexture is normal. No hydronephrosis or nephrolithiasis. No suspicious solid mass lesions. Bladder: A Beltran catheter is present. Miscellaneous: No free pelvic fluid. IMPRESSION: 1. Bilateral cortical thinning suggesting medical renal disease. No hydronephrosis. Dictated by: Pat Pastor M.D. on 12/20/2016 at 14:32 Approved by: Pat Pastor M.D. on 12/20/2016 at 14:33
[2016-12-20] MEDS ORDERED: 0.9% Sodium Chloride 250 ML ONE (20:40)
--- NOTE | 2016-12-21 01:35 | NUR ---
Activity Patient is A&OX3, and pleasant this evening. Tolerated 2000 PEG tube feeding this evening. Denies any pain, expect when PEG tube tube site is being manipulated. Incisions on both sides of the PEG tube are open, and packing is in place with sanguinous drainage. Drainage does not saturate dressing that is covering the site at this time. Beltran catheter is draining pale urine to gravity. Heels are floated on pillow, and SCDs applied. Patient is currently sleeping and appears comfortable. Will continue to monitor, and continue Q1 hour checks.
[2016-12-21 02:55] VITALS: BP 203/62; PULSE 107; O2SAT 88
[2016-12-21 03:00] VITALS: BP 182/69; PULSE 93; RESP 20; O2SAT 94
[2016-12-21] MEDS: HYDROcodone-APAP 5-325 mg Tablet PO PRN ×2 (03:13→19:42)
[2016-12-21] MEDS: Vancomycin Inj 750 MG in 0.9% Sodium Chloride 250 ML IV SCH (03:56)
--- NOTE | 2016-12-21 04:14 | NUR ---
Respiratory At 0240 Patient had called to be assisted with the bed nicholas to have a BM. After finishing, patient developed a weak persistent cough that was very loose and wet. Was able to assist patient with clearing a large amount of secretions by using suction, but patient was still in some distress. secretions were clearish/white and thick. BP 203/62 HR 107 T 37.5 and 02 90% on RA. RT was notified, and came to assess patient. 2.5L of o2 via NC applied. When assessed, RT stated that lungs may sound slightly decreased, but overall pretty good. Lungs sounded the same as initial assessment at start of shift. Once coughing subsided BP 182/69 T37 HR 93 RR 20 O2 94% on 2.5LO2 via NC. RIGGER applied. Last PEG tube feeding was at 2030. PEG tube incision sites assessed due to complaints of increased pain, no significant changes noted. 1 tab norco crushed and administered through PEG tube was given. Will continue to monitor, and continue Q 1 hour checks.
[2016-12-21 05:50] VITALS: BP 175/64; PULSE 92; RESP 16; O2SAT 94
[2016-12-21 06:32] LABS: BASOPHILS % (AUTO) 0.1 % (0-3); EOSINOPHILS % (AUTO) 1.5 % (0-5); MONOCYTES % (AUTO) 7.5 % (4-12); Mean Corpuscular Hemoglobin 32.6 pg (27.0-35.0); Mean Corpuscular Volume 98.2 fL (81-100); NEUTROPHILS % (AUTO) 82.3 % (40-74); Platelet Count 196 bil/L (150-400)
[2016-12-21 06:35] LABS: Magnesium 1.8 mg/dL (1.6-2.6)
[2016-12-21] MEDS ORDERED: Potassium Chloride 20 mEq SR Tablet PO ONE (07:30)
--- NOTE | 2016-12-21 08:17 | PCM.PNSURG ---
Subjective Visit Information: Reason for Visit Abscess, Cellulitis Surgery/Surgery Date Post-Op Day # Date of Admission: December 17, 2016 at 21:51 Hospital Day # Subjective: underwent additional I & D in the OR yesterday, had a BM this am, was able to use his PEG tube last night, PEG tube site feels better now Objective Objective Arousable in bed Abd: incisions x2 on either side of PEG tube, both packed with 1/4 inch Nu-gauze Vital Sign- Last 8 Hours Date Time Temp Pulse Resp B/P Pulse Ox O2 Delivery O2 Flow Rate FiO2 12/21/16 05:50 37.6 92 16 175/64 94 Nasal Cannula 2.50 12/21/16 03:00 37.0 93 20 182/69 94 Nasal Cannula 2.50 12/21/16 02:55 37.5 107 203/62 88 Intake and Output- Last 8 Hour 12/21/16 Cumulative From/Thru 07:00 12/17/16 16:56 - 12/21/16 06:53 Intake Total 1736 ml 6393 ml Output Total 850 ml 7045 ml Balance 886 ml -652 ml Intake Oral 0 ml 480 ml IV Total 1736 ml 5913 ml Output Urine Total 850 ml 7045 ml # Bowel Movements 1 2 Result Diagram: 12/21/16 0605 12/21/16 0605 Assessment & Plan Impression POD #1 s/p I & D of abscess x2 on either side of PEG tube exit site Problems: 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
[2016-12-21] MEDS: Vancomycin Dose per Pharmacist XX SCH (08:30)
[2016-12-21] MEDS: Sodium Chloride LOK Flush 10 mL Syringe IVFLUSH SCH ×2 (08:33→16:30)
[2016-12-21] MEDS: Pantoprazole 4 mg/mL 10 mL Inj IVPUSH SCH (08:33)
--- NOTE | 2016-12-21 11:57 | PCM.PNMED ---
Subjective Date of Service December 21, 2016 Subjective doing ok today. no complaints denies: headache, lightheadedness, chest pain, worsening shortness of breath, cough, abdominal pain, nausea, vomiting, diarrhea, dysuria, sweats, chills, shakes Exam Vital Signs Vital Sign - Last Date Time Temp Pulse Resp B/P Pulse Ox O2 Delivery O2 Flow Rate FiO2 12/21/16 05:50 37.6 92 16 175/64 94 Nasal Cannula 2.50 Intake and Output 12/20/16 12/20/16 12/21/16 Cumulative From/Thru 15:00 23:00 07:00 12/17/16 16:56 - 12/21/16 06:53 Intake Total 100 ml 0 ml 1736 ml 6393 ml Output Total 750 ml 700 ml 850 ml 7045 ml Balance -650 ml -700 ml 886 ml -652 ml Intake Oral 0 ml 0 ml 480 ml IV Total 100 ml 1736 ml 5913 ml Output Urine Total 750 ml 700 ml 850 ml 7045 ml # Bowel Movements 1 1 2 Exam Physical Exam: Gen: no acute distress HEENT: moist mucus membranes Respiratory: CTAB, unlabored respirations Cardiovascular: RRR, no m/r/g Abdomen: soft, non-tender, non-distended. + bowel sounds x 4 quadrants. no purulent discharge from g tube site. no spreading erythema Extr: no edema b/l lower extremities Psyc: appropriate, cooperative IVs and Medications Medications Reviewed: Medications were reviewed in detail Lab and Diagnostics Result Diagram: 12/21/1660412/21/16604 Microbiology abscess drainage culture and sensitivity pending . Additional Diagnostics PROCEDURE: US ABDOMEN, LIMITED IMPRESSION: Presumed phlegmon as discussed above in the soft tissues adjacent to the PEG tube. As discussed there are rare complications of very long- standing percutaneous tubes which can induce neoplasm formation, most typically squamous cell carcinoma. Dictated by: Kwan West M.D. on 12/17/2016 at 20:51 Approved by: Kwan West M.D. on 12/17/2016 at 20:54 . Assessment & Plan Rianna Lim is an 89 year old man with a PMH as listed above who presents with a 4 day history of pain and erythema around his PEG tube site, and associated growth of a LLQ mass with concordant constipation. --Cellulitis with abscess present on admission, acute. Active change to po clindamycin likely for more days. may need adjustments depending on clinical status. wound care will see tomorrow -- acute urinary retention. hydronephrosis elizalde placed with good output. cont to monitor. renal u/s yest shows resolution of hydronephrosis. may need to leave with elizalde. Constipation, present on admission, acute on chronic. Active bowel regimen HTN, present on admission, chronic. Active -Continue home Amlodipine 10 mg PO daily BPH with chronic painful urination, present on admission, chronic. Active -Continue home Tamsulosin 0.4 mg -Continue home Phenazopurine 100 mg tid PRN -Continue home Finasteride 5 mg PO daily -CT shows bladder is mildly distended with bilateral hydronephrosis and hydroureter to the bladder -Elizalde catheter has been placed and is currently out putting clear urine. cont for now. Chronic GERD, present on admission, chronic. 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 which is the cause of his difficulty swallowing and need for the peg tube. he follows with neurology as an outpt for this issue. Diet: Patient is currently on a clear liquid diet and Jevity 1.5 to gravity via the PEG tube Code Status: DNR/DNI Disposition: pending wound care eval tomorrow, recommendations. hopeful for d/c tomorrow if medically stable GI Prophylaxis: Proton Pump Inhibitor VTE Prophylaxis: Other (active bleeding from PEG tube site and possible hematoma vs phlegmon in LLQ make anticoagulation undesirable) VTE Mechanical Devices: Intermittant Pneumatic CD Resuscitation Status: DNR/DNI:Do Not Resuscitate/Intubate Indra Hazel MD December 21, 2016 11:57
[2016-12-21 13:10] VITALS: BP 163/61; PULSE 97; RESP 20; O2SAT 99
--- NOTE | 2016-12-21 14:23 | NUR ---
Evaluation completed. Please go to "Notes" then click on "Assessments and Notes" (bottom left corner of screen). Then select appropriate discipline tab on top of screen.
[2016-12-21 15:00] VITALS: PULSE 101; RESP 20; O2SAT 92
--- NOTE | 2016-12-21 15:24 | NUR ---
[facility] signed
--- NOTE | 2016-12-21 15:54 | NUR ---
Social Work: Continued Discharge Planning D: Pt is on day 4 of hospitalization. SW met with pt to discuss PT referral for SNF. Pt was agreeable to going to SNF and requested [facility]. SW confirmed it was okay with pt for SW to call son Luis Felipe and discuss plan. SW spoke with son and he is agreeable to pt going to [facility] at discharge. SW faxed PASSR and F2F to [facility], gave access, and placed ppw in chart. A: Pt who would benefit from a SNF. P: Pt likely to discharge to [facility] at discharge. SW faxed F2F and PASSR, gave access and placed ppw in chart. SW to follow-up with pt and son. Erica Murphy MSW
--- NOTE | 2016-12-21 15:59 | NUR ---
Vel Perez, [facility], [facility]
--- NOTE | 2016-12-21 18:16 | NUR ---
respiratory status this afternoon patient has an extensive cough episode lasting several minutes. during coughing patient's O2 sat dropped to 87% while on NC at 2L/min. OxyMask placed on patient, O2 sat improved to 92%. encouraged strong cough to clears secretions. oral suction used to clear secretions. Secretions are thick/white. when coughing episode resolved O2 sat improved to 99%. patient switched back to NC at 2L/min and patient was able to maintain O2 sats 97-99%. suction Yank left at bedside within reach of patient so he can use to clear sections. continue to monitor.
[2016-12-21 21:00] VITALS: BP 128/70; PULSE 52; RESP 18; O2SAT 97
[2016-12-22] MEDS: Sodium Chloride LOK Flush 10 mL Syringe IVFLUSH SCH ×2 (00:29→09:16)
--- NOTE | 2016-12-22 05:02 | NUR ---
PEG tube / infection PEG tube now draining freely, day shift RN able to unplug; caution used for all crushed meds to avoid further problems. Noted that abscess swab returned positive for MRSA, placed on contact precautions. Dressing change increased pain, resolved with one Edison. Hourly rounding ongoing.
[2016-12-22 05:20] VITALS: BP 167/65; PULSE 82; RESP 18; O2SAT 98
[2016-12-22] MEDS: HYDROcodone-APAP 5-325 mg Tablet PO PRN ×2 (05:45→10:10)
[2016-12-22 06:34] LABS: BASOPHILS % (AUTO) 0.1 % (0-3); EOSINOPHILS % (AUTO) 1.1 % (0-5); MONOCYTES % (AUTO) 7.9 % (4-12); Mean Corpuscular Hemoglobin 32.6 pg (27.0-35.0); Mean Corpuscular Volume 99.6 fL (81-100); NEUTROPHILS % (AUTO) 81.9 % (40-74); Platelet Count 204 bil/L (150-400)
[2016-12-22 09:12] VITALS: BP 156/55; PULSE 71; RESP 18; O2SAT 99
[2016-12-22] MEDS: Pantoprazole 4 mg/mL 10 mL Inj IVPUSH SCH (09:15)
--- NOTE | 2016-12-22 10:09 | PCM.DIMED ---
Discharge Instructions Date of Service December 22, 2016 Dates of Hospitalization December 17, 2016 at 21:51 Discharge Diagnosis Discharge Diagnosis --Cellulitis with abscess present on admission, acute. Active -- acute urinary retention. hydronephrosis --Constipation --HTN, present on admission, chronic. Active --BPH with chronic painful urination, present on admission, chronic. Active --Chronic GERD -- myopathy Medication Instructions per dietary recommendations regarding tube feeding: Recommend pt resume home tube feeding regimen of bolus Jevity 1.2 x 5 cans (1185 mL/day, 237ml each feeding) provides 1425 kcal, 66 g pro, 955 mL free h20, flushing PEG with 50ml H20 before/after each bolus. Diet Heart Healthy Activity Other (per physical therapy) Call your provider Fever or Chills, Shortness of breath, Bleeding, Chest pain, Vomitting, Excessive diarrhea, Weakness (unilateral) Patient Instructions follow up with primary care physician 3-5 days after discharge. follow up with surgeon 1 weeks after discharge. Indra Hazel MD December 22, 2016 10:09
[2016-12-22] MEDS ORDERED: CLIN-78 PO (10:12)
--- NOTE | 2016-12-22 10:23 | NUR ---
[facility] can accept with Dr. Mcelroy to follow. [facility] has jevity-formula for pt for his tube feeds ready. CHUCKY Benjamin
--- NOTE | 2016-12-22 10:31 | PCM.PNSURG ---
Subjective Date of Service: December 22, 2016 Date of Service: December 22, 2016 Visit Information: Reason for Visit Abscess, Cellulitis Surgery/Surgery Date Post-Op Day # Date of Admission: December 17, 2016 at 21:51 Hospital Day # Subjective: Awake & alert in good spirits, no specific complaints. Denies headache, fever/ chills, chest pain, SOB, nausea/vomiting or GI or symptoms. States some abdominal pain surrounding PEG tube insertion site. Is passing stool and has been able to use PEG tube. 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 Objective Vital Sign- Last 8 Hours Date Time Temp Pulse Resp B/P Pulse Ox O2 Delivery O2 Flow Rate FiO2 12/22/16 09:12 37.1 71 18 156/55 99 Nasal Cannula 2.00 12/22/16 05:20 37.4 82 18 167/65 98 Nasal Cannula 2.00 Intake and Output- Last 8 Hour 12/22/16 Cumulative From/Thru 07:00 12/17/16 16:56 - 12/22/16 06:57 Intake Total 102 ml 7965 ml Output Total 350 ml 8045 ml Balance -248 ml -80 ml Intake Oral 0 ml 480 ml IV Total 102 ml 6135 ml Tube Feeding 800 ml Tube Irrigant 550 ml Output Urine Total 350 ml 8045 ml # Bowel Movements 2 4 General: Alert, Oriented X3, Cooperative, No Acute Distress Lungs: Clear to Auscultation, Normal Air Movement Heart: Regular Rate/Rhythm, Murmur (blowing murmur heard best left and right second intercostal space/sternal border) Abdomen: Appropriately tender SURGICAL WOUND : Wound General Appearence: No Erythema, No Discharge Result Diagram: 12/22/16 0553 12/22/16 0600 Lab & Micro Results: Abscess culture showed MRSA, sensitive to clindamycin Blood culture negative 2 days Diagnostics: . US ABDOMEN, LIMITED IMPRESSION: Presumed phlegmon as discussed above in the soft tissues adjacent to the PEG tube. As discussed there are rare complications of very long- standing percutaneous tubes which can induce neoplasm formation, most typically squamous cell carcinoma. Dictated by: Kwan West M.D. on 12/17/2016 at 20:51 CT ABDOMEN AND PELVIS WITH CONTRAST IMPRESSION: 1. Mild bilateral hydronephrosis and hydroureter to the bladder. This is a new finding since the preceding CT and 2013. Cause is not appreciated other than probable chronic outlet obstruction. Bladder is mildly distended. Wall of the bladder is mildly diffusely thickened. The prostate is diffusely prominently enlarged, heterogeneous, and nodular. No evidence for adenopathy or blastic lytic bone changes. 2. Gastrotomy tube, lumbar spine surgery, sigmoid diverticulosis are noted as well. Dictated by: Leodan Deras M.D. on 12/18/2016 at 8:08 US RENAL SONOGRAM IMPRESSION: 1. Bilateral cortical thinning suggesting medical renal disease. No hydronephrosis. Dictated by: Pat Pastor M.D. on 12/20/2016 at 14:32 Assessment & Plan Impression Assessment & Plan: Incision and drainage of abdominal abscesses 2 surrounding PEG tube exit site, postoperative day 2 - Wound care following, will change bandages today prior to discharge - Continue antibiotic, clindamycin - Discharged to SNF today per primary team - Follow up with wound care Problems: VTE Prophylaxis: Other (active bleeding from PEG tube site and possible hematoma vs phlegmon in LLQ make anticoagulation undesirable) Resuscitation Status: DNR/DNI:Do Not Resuscitate/Intubate RYLIE MITCHELL DO December 22, 2016 10:31 RYLIE MITCHELL DO December 22, 2016 10:31 RYLIE MITCHELL DO December 22, 2016 10:31
--- NOTE | 2016-12-22 10:50 | NUR ---
Faxed orders to [facility] and placed copy in chart, Wound care is needing to come and see patient prior to discharge. [employer] updated and transportation to be determined.
--- NOTE | 2016-12-22 11:03 | PCM.DC.MED ---
Discharge Summary Date of Service December 22, 2016 Dates of Hospitalization Date of Hospital Admission December 17, 2016 at 21:51 Date of Discharge: December 22, 2016 Providers: Admitting Physician: Dhiraj Hensley MD Primary Care Physician: Wyatt Jeronimo MD Attending Physician: Dhiraj Hensley MD Diagnosis at Time of Discharge Diagnosis at Time of Discharge --Cellulitis with abscess present on admission, acute. Active -- acute urinary retention. hydronephrosis --Constipation --HTN, present on admission, chronic. Active --BPH with chronic painful urination, present on admission, chronic. Active --Chronic GERD -- myopathy Consultations general surgery Procedures Other Diagnostics PROCEDURE: US ABDOMEN, LIMITED IMPRESSION: Presumed phlegmon as discussed above in the soft tissues adjacent to the PEG tube. As discussed there are rare complications of very long- standing percutaneous tubes which can induce neoplasm formation, most typically squamous cell carcinoma. Dictated by: Kwan West M.D. on 12/17/2016 at 20:51 Approved by: Kwan West M.D. on 12/17/2016 at 20:54 . 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 He further complains of constipation in that same interim with only 1 very small difficult BM 4 days ago. He and his family attempted to manage the peg inflammation with neosporin gel but that proved inadequate to halt the progression of his likely cellulitis. He further complains of chills and weakness, he is unable to ambulate independently at baseline but can usually assist with transfers and has been unable to do so for the past few days. He denies chest pain, SOB, nausea, vomiting, diarrhea, or cough. In the ED a sample of the expressed purulent fluid from around the PEG site was sent for culture and sensitivity and the patient was started on Ceftriaxone and Vanco, and US of the LLQ mass was obtained that revealed a likely phlegmon. Hospital Course Rianna Lim is an 89 year old man with a PMH as listed above who presents with a 4 day history of pain and erythema around his PEG tube site, and associated growth of a LLQ mass with concordant constipation. --Cellulitis with abscess present on admission, acute. Active change to po clindamycin likely for more days. may need adjustments depending on clinical status. had I and D in the er and then again by surgical team. cont wound care. -- acute urinary retention. hydronephrosis elizalde placed with good output. cont to monitor. renal u/s yest shows resolution of hydronephrosis. may need to leave to snf with elizalde. there can attempt to remove in 1-2 days. Constipation, present on admission, acute on chronic. Active bowel regimen improving. HTN, present on admission, chronic. Active -Continue home Amlodipine 10 mg PO daily BPH with chronic painful urination, present on admission, chronic. Active -Continue home Tamsulosin 0.4 mg -Continue home Phenazopurine 100 mg tid PRN -Continue home Finasteride 5 mg PO daily as above Chronic GERD, present on admission, chronic. 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 which is the cause of his difficulty swallowing and need for the peg tube. he follows with neurology as an outpt for this issue. Diet: cont tube feeds. dietary recommendations. Code Status: DNR/DNI prior to d/c denies: headache, lightheadedness, chest pain, worsening shortness of breath, cough, abdominal pain, nausea, vomiting, diarrhea, dysuria, sweats, chills, shakes Exam Vital Signs (Last) Date Time Temp Pulse Resp B/P Pulse Ox O2 Delivery O2 Flow Rate FiO2 12/22/16 09:12 37.1 71 18 156/55 99 Nasal Cannula 2.00 Exam Physical Exam: Gen: no acute distress HEENT: moist mucus membranes Respiratory: CTAB, unlabored respirations Cardiovascular: RRR, no m/r/g Abdomen: soft, non-tender, non-distended. + bowel sounds x 4 quadrants. no purulent discharge from g tube site. no spreading erythema Extr: no edema b/l lower extremities Psyc: appropriate, cooperative Test 12/17/16 19:05 12/17/16 19:37 12/18/16 05:31 12/19/16 05:34 Urine Color Yellow (YELLOW) Urine Appearance Hazy (CLEAR,HAZY) Urine pH 8.0 (5.0-8.0) Urine Specific [place] 1.010 (1.003-1.035) Urine Protein Tracemg/dL (NEG,TRACE) Urine Glucose (UA) Negativemg/dL (NEGATIVE) Urine Ketones Negativemg/dL (NEGATIVE) Urine Occult Blood Negative (NEGATIVE) Urine Nitrite Positive (NEGATIVE) Urine Bilirubin Negative (NEGATIVE) Urine Urobilinogen Normalmg/dL (NORMAL) Urine Leukocyte Esterase Small (NEGATIVE) Urine RBC 3-10/hpf (0-2) Urine WBC >50/hpf (0-5) Urine Epithelial Cells Occasional/hpf (NONE-MOD) Urine Crystals Amorphous phosphates Urine Bacteria None/hpf (NONE-FEW) Urine Hyaline Casts None/lpf (NONE) Urine Granular Casts None seen (NONE SEEN) Urine Waxy Casts None seen (NONE SEEN) Urine Red Blood Cell Casts None seen (NONE SEEN) Urine White Blood Cell Casts None seen (NONE SEEN) Urine Mucus None seen (None Seen) Urine Trichomonas None seen (NONE SEEN) Urine Yeast None (NONE SEEN) Urine Culture Reflexed Indicated Hold Urine Received (Received) Lactic Acid Level 0.7mmol/L (0.4-2.0) Lipase 16U/L (13-60) Hold Fisher Top Tube Received (Received) Phosphorus Level 3.0mg/dL (2.5-4.9) Procalcitonin 0.06ng/mL (0.00-0.08) Test 12/19/16 14:25 12/20/16 05:45 12/22/16 05:53 12/22/16 06:00 Vancomycin Level Trough 12.7mcg/mL Total Bilirubin 0.4mg/dL (0.0-1.2) Aspartate Amino Transf (AST/SGOT) 21U/L (0-50) Alanine Aminotransferase (ALT/SGPT) 19U/L (0-44) Alkaline Phosphatase 59U/L (25-160) Total Protein 5.5g/dL (6.4-8.4) Albumin 3.1g/dL (3.4-5.0) White Blood Count 13.4th/mm3 (3.8-10.1) Red Blood Count 2.85mil/mm3 (4.40-5.80) Hemoglobin 9.3g/dL (13.8-17.2) Hematocrit 28.4% (41.0-50.0) Mean Corpuscular Volume 99.6fL (81-100) Mean Corpuscular Hemoglobin 32.6pg (27.0-35.0) Mean Corpuscular Hemoglobin Concent 32.7% (32.0-37.0) Red Cell Distribution Width 13.3% (12.3-15.4) Platelet Count 204bil/L (150-400) Neutrophils (%) (Auto) 81.9% (40-74) Lymphocytes (%) (Auto) 8.8% (14-46) Monocytes (%) (Auto) 7.9% (4-12) Eosinophils (%) (Auto) 1.1% (0-5) Basophils (%) (Auto) 0.1% (0-3) Sodium Level 142mEq/L (134-144) Potassium Level 3.6mEq/L (3.5-5.2) Chloride Level 105mEq/L (97-108) Carbon Dioxide Level 26mmol/L (18-29) Blood Urea Nitrogen 16mg/dL (8-27) Creatinine 0.43mg/dL (0.76-1.27) Estimat Glomerular Filtration Rate 198mL/min (>59) Glucose Level 108mg/dL (60-99) Calcium Level 8.7mg/dL (8.5-10.1) Magnesium Level 2.0mg/dL (1.6-2.6) Microbiology Results abscess drainage culture and sensitivity pending . Discharge Medications Discharge Medications Amlodipine (Amlodipine) 5 Mg Tablet 5 MG PO DAILY (Reported) Aspirin (Aspirin) 81 Mg Tablet 81 MG PO DAILY (Reported) Ca Cmb 1/Vit D3/B-6/FA/B12/Av (Vitamin D3-Aloe 1,000 Unit Tab) 1 Each Tablet 1 EACH PO BID (Reported) Calcium Citrate (Calcium Citrate) 200 Mg Tablet 400 MG PO DAILY (Reported) Clindamycin (Clindamycin) 300 Mg Capsule 300 MG PO QID Prescribed by: Glenna PAYNE Erythromycin Ophth Oint (Erythromycin Ophth Oint) 3.5 Gm Oint...g. 1 APPL OP TID (Reported) Esomeprazole Magnesium (Nexium) 40 Mg Capsule.dr 40 MG PO DAILY (Reported) Finasteride (Finasteride) 5 Mg Tablet 5 MG PO DAILY (Reported) Loratadine (Claritin) 10 Mg Capsule 10 MG PO DAILY (Reported) Multivitamin W-Minerals/Lutein (Centrum Silver Ultra Men's Tab) 1 Each Tablet 1 EACH PO DAILY (Reported) Oxybutynin Chloride (Oxybutynin Chloride) 5 Mg Tablet 5 MG PO BID (Reported) Tamsulosin (Flomax) 0.4 Mg Capsule 0.4 MG PO HS (Reported) Terazosin (Terazosin) 5 Mg Capsule 5 MG PO HS (Reported) Ubidecarenone/Vit E Acetate (Co Q-10 100 mg Softgel) 1 Each Capsule 1 EACH PO TID (Reported) As needed Acetaminophen (Tylenol Arthritis) 650 Mg Tablet.er 650 MG PO DAILY PRN PRN For Pain (Reported) Bisacodyl (Bisacodyl Rectal) 10 Mg/30 Ml Enema 10 MG RC PRN PRN PRN For Constipation (Reported) Hydrocodone-Acetaminophen 5-325 mg (Hydrocodone-Acetaminophen 5-325 mg) 1 Each Tablet 1-2 TABLET PO Q4H PRN PRN For Pain (Reported) Hydrocortisone (Hydrocortisone) 2.5 % Cream.appl 30 GM RC BID PRN PRN For Itching (Reported) Ondansetron (Ondansetron) 4 Mg Tablet 4 MG PO EVERY 4 HOURS PRN PRN For Nausea ( Reported) Phenazopyridine (Phenazopyridine) 100 Mg Tablet 100 MG PO TID PRN PRN painful urination Prescribed by: YULIET RIVERS MD Triamcinolone Acet (Triamcinolone Acetonide Cream) 1 Applic/0.25 Gm Cr 1 APPLIC EXT BID PRN PRN For Itching (Reported) Miscellaneous Medications Cholecalciferol (Vitamin D3) (Vitamin D3) 1,000 Unit Tab.chew 1,000 UNIT PO ( Reported) Followup Plan Discharge Diet: Heart Healthy Discharge Activity: Other (per physical therapy) Patient Instructions follow up with primary care physician 3-5 days after discharge. follow up with surgeon 1 weeks after discharge. Time spent >35 mins Indra Hazel MD December 22, 2016 11:03
--- NOTE | 2016-12-22 11:30 | NUR ---
Social Work: Discharge D: Pt is on day 5 of hospitalization. SW confirmed that pt will transport to [facility] today at 14:00. SW called son Luis Felipe and left voicemail confirming transport time. SW confirmed transport time with RN and pt. A: Pt who will benefit from SNF. P: Pt to discharge to [facility] today at 14:00. Pt and family contacted regarding transport time. Pt and family agreeable to plan. SNF transport packet awaiting pick-up. CHUCKY Carpenter
--- NOTE | 2016-12-22 11:35 | NUR ---
Wound Care Patient seen for wound care. Now presents with 2 wounds on either side of feeding tube. Right sided wound is 2.5 cm L x 1 cm W x 1 cm D, base granular,drainage minimal, no erythema, tunneling or undermining. Left sided wound is 1.3 cm L x 1 cm W x 1 cm D, base granular,drainage minimal, no erythema, tunneling or undermining. Wounds cleaned with saline and sterile Q tip, redressed with aquacell, covered with gauze. Patient tolerated well with Vicodin prior to dressing change. Recommend these wounds be cleaned daily with saline and redressed with aquacell and gauze. Fixative dressing applied to keep feeding tube stationary.
--- NOTE | 2016-12-22 13:59 | NUR ---
Faxed updated discharge instructions which include tube feed orders to [facility] per [employer]
[2016-12-22] MEDS ORDERED: Vancomycin Serum Trough XX ONE (14:00)
--- NOTE | 2016-12-22 14:44 | NUR ---
Discharge Pt. discharged via transport services to [facility] at 1433 in stable condition. IV dc'd prior to discharge. Report called to Grisel AVILA. All belongings and paperwork with pt. Elizalde catheter draining to gravity. [facility] aware to DC elizalde in 1-2 days per MD recommendation.
== END 2016-12-22 14:30 | DRG 580 ==
LOC: SED 16:49 → OSC 21:51
PROVIDERS: ADMIT Hospitalist; ATTEND Hospitalist
PROC: 0W9F3ZX Drainage of Abdominal Wall, Percutaneous Approach, Diagnostic (ICD-10-PCS; 2016-12-17)
PROC: 0JD80ZZ Extraction of Abdomen Subcutaneous Tissue and Fascia, Open Approach (ICD-10-PCS; principal; 2016-12-20 09:00)
DX: L03.311 Cellulitis of abdominal wall (principal); N13.30 Unspecified hydronephrosis; G72.41 Inclusion body myositis [IBM]; N40.1 Benign prostatic hyperplasia with lower urinary tract symptoms; R33.8 Other retention of urine; Z79.82 Long term (current) use of aspirin; K59.00 Constipation, unspecified; I10 Essential (primary) hypertension; K21.9 Gastro-esophageal reflux disease without esophagitis; Z66 Do not resuscitate; R30.9 Painful micturition, unspecified; G72.9 Myopathy, unspecified

== ENCOUNTER → 2017-05-08 | Day surgery (SDC) | payer MEDICARE ==
--- NOTE | 2017-05-06 13:36 | PCM.ANEPRE ---
Anesthesia Pre-Op Review Reason for Review: SURGEON'S REQUEST: "CARDIAC", PROGRESSIVE MUSCULAR DISORDER Anesthesia Recommendations: Proceed with Procedure Additional Comments 89 yo for TURP. Patient has hx of sporadic inclusion body myositis with sequelae or living in [facility] facility and dysphagia requiring PEG tube. 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 IBM is most commonly observed in men over fifty years of age. The incidence of IBM is approximately 8 per million in the [place] (3) and ranges between 2 and 12 per million in other parts of the world (1, 4). The slow onset of the disease often delays its diagnosis for several years (5). Involvement of the quadriceps muscle group contributes to gait instability and falls in the vast majority of patients (6). Oropharyngeal dysphagia also occurs frequently and increases the risk of aspiration in patients with IBM because clearance of secretions may be impaired (7, 8). In contrast to other inflammatory myopathies (e.g., polymyositis, dermatomyositis), intrinsic pulmonary disease (e.g., interstitial pneumonitis, alveolitis) and myocardial fibrosis complicated by arrhythmias or heart failure does not occur in IBM1.Nevertheless, diaphragmatic dysfunction may contribute to respiratory insufficiency in some patients with IBM (9). Given patients demonstrated history of dysphagia, he is at risk for aspiration and likely has diaphragmatic dysfunction which would result in respiratory insufficiency. If feasible, a spinal anesthetic would be preferred. If GA is done, aspiration precautions should be taken, and attention given to patient's increased sensitivity to neuromuscular blockers. Safety of succinylcholine in IBM has not been established, but should probably be avoided in such a primary muscular disorder. Echo is done and mostly unremarkable, as is last EKG in 2016. Chart Reviewed by: Leopoldo Rubio MD May 06, 2017 13:36
[~2017-05-08] VITALS: Ht 182.9 cm; Wt 71.4 kg
[2017-05-08] VITALS (14 sets, daily range): BP systolic 128–148; BP diastolic 49–66; PULSE 65–83; RESP 14–19; O2SAT 90–100
[~2017-05-08] MED LIST changes: +ACET-2766 PO; +ACET325T51 PO; -ACET650T46 PO; -AMLO10TA3 PO; +AMLO5TAB2 PO; +Belladonna Alk-Opium 60 mg Rectal Suppository RECTAL ONE; -CA C1TAB29 PO; +CALC200T2 PO; +CHLS378PW PO; +CHOL10008 PO; -CIPR250T3 PO; +CLIN-78 PO; +CYAN100085 PO; +CeFAZolin 2 Gm/50 mL D5W Duplex Bag IV ONE; +CeFAZolin Inj 2 GM in IV Premix 1 EACH IV ONE; +DEXT118L43 PO; +DOXA4TAB2 PO; +Dexamethasone 4 mg/mL Inj IVPUSH PRN; +Dexamethasone 4 mg/mL Inj ONE; +EPHEDrine Sulfate 50 mg/mL Inj IVPUSH PRN; +EPHEDrine/NS 5 mg/mL 5 mL Syringe ONE; +HYDR30CR74 RC; +HYDR30CR98 RC; +HYDROcodone-APAP 5-325 mg Tablet PO PRN; +HYDROcodone-APAP 7.5-325 mg/15 mL 15 mL Solution ONE; +HYDROmorphone 0.5 mg/0.5 mL iSecure Syringe ONE; +HYDROmorphone 1 mg/mL Inj IVPUSH PRN; +KEN1C EXT; +LACT-75 PO; +LOPE-147 PO; +Lactated Ringer's 1,000 ML IV ONE; +Lactated Ringer's 1,000 ML IV SCH; +Lactated Ringer's 500 ML IV PRN; +MAGN400O4 PO; +MetoCLOpramide 5 mg/mL 2 mL Inj IVPUSH PRN; +NA P133E23 RC; +ONDA-53 PO; +Ondansetron 2 mg/mL 2 mL Inj IVPUSH PRN; +Ondansetron 2 mg/mL 2 mL Inj ONE; +Ondansetron 8 mg ODT Tablet PO PRN; +Phenazopyridine 97.5 mg Tablet ONE; +Phenylephrine 10,000 mCg/mL Inj IVPUSH PRN; +Propofol 10,000 mCg/mL 20 mL Inj ONE; +SULF1TAB34 PO; +TAMS0.4C29 PO; -TAMS0.4C98 PO; +TERA5CAP6 PO; +fentaNYL-PF 50 mCg/mL 2 mL Inj ONE
[2017-05-08] MEDS: Lactated Ringer's 1,000 ML IV SCH ×2 (07:13→10:08)
--- NOTE | 2017-05-08 08:29 | PCM.HPANE ---
Patient Data Surgeon Admitting Provider: Attending Provider:Lisandra Cordova MD Primary Care Physician:Wyatt Jeronimo MD Other Provider:Kaylan Garciaingham Anesthesia Reason for Visit Urinary Retention Ht/WT & BMI Height (Feet): 6 Height (Inches): 0.00 Weight (Kilograms): 71.400 Body Mass Index 21.00 Allergies Coded Allergies: No Known Allergies (Verified Allergy, Unknown, 12/17/16) Past Anesthesia History Anesthesia History: Denies:: Anesthesia Reactions, Malignant Hyperthermia Diabetes History Hx Diabetes?: No MRSA MRSA: No Medications Blood Thinner: Aspirin Last Dose Blood Thinner: May 01, 2017 Hypertension Medication: Yes (AMLODIPINE) Home Meds Incl Beta Isaura: No Active Scripts Clindamycin 300 Mg [id number] Mg PO QID #28 CAPSULE Ref 0 Prov:Indra Hazel MD 12/22/16 Phenazopyridine 100 Mg Dvbbwh145 Mg PO TID PRN painful urination #5 TABLET Ref 0 Prov:Williams Mcpherson MD 03/23/16 Reported Medications Sulfamethoxazole/Trimeth 400-80 mg (Bactrim 400-80 mg)1 Each Tablet1 Tablet PO TID Ref 0 05/08/17 Hydrocortisone (Proctozone-Hc)30 Gm Cream.appl30 Gm RC PRN 05/08/17 Hydrocortisone 2.5 % Cream.appl30 Gm RC PRN 05/08/17 Loperamide HCl (Imodium A-D)2 Mg Capsule2 Mg PO PRN 05/08/17 Terazosin 5 Mg Capsule5 Mg PO HS Ref 0 05/08/17 Tamsulosin ER 0.4 Mg Cap.er.24h0.4 Mg PO HS #15 05/08/17 Lactose-Free Food/Fiber (Jevity 1.5 Elvis Liquid)1,000 Ml Liquid1,200 Ml PO 6X DAY 05/08/17 Calcium Citrate (Calcitrate)200 Mg Dwxwqq182 Mg PO DAILY 05/08/17 Cholestyramine (Questran Powder)378 Gm Powd1 Dose PO 4-8X/DAY #1 CAN Ref 0 05/06/17 Magnesium Hydroxide (Milk of Magnesia)400 Mg/5 Ml Oral.susp30 Ml PO DAILY PRN PRN 05/06/17 Lactose-Free Food/Fiber (Jevity 1.5 Elvis Liquid)1,000 Ml Liquid1,000 Ml PO DIRECTED PRN NUTRITION 05/06/17 Na Phos,M-B/Na Phos,Di-Ba (Fleet Enema)133 Ml Okbpl941 Ml RC DAILY PRN PRN 05/06/17 Doxazosin (Cardura)4 Mg Tablet4 Mg PO HS Ref 0 05/06/17 Dextromethor/Acetamin/Diphen (Diabetic Tussin Nighttime Liq)118 Ml Biyvcj24 Ml PO Q4H PRN PRN 05/06/17 Acetaminophen (Tylenol Arthritis)650 Mg Tablet.er650 Mg PO DAILY PRN For Pain 12/18/16 Cholecalciferol (Vitamin D3) (Vitamin D3)1,000 Unit Tab.chew1,000 Unit PO DAILY 12/18/16 Ondansetron 4 Mg Tablet4 Mg PO EVERY 4 HOURS PRN For Nausea 12/18/16 Triamcinolone Acet (Triamcinolone Acetonide Cream)1 Applic/0.25 Gm Cr1 Applic EXT BID PRN For Itching #60 GM Ref 0 12/18/16 Amlodipine 5 Mg Tablet5 Mg PO DAILY Ref 0 12/18/16 Hydrocodone-Acetaminophen 5-325 mg 1 Each Tablet1-2 Tablet PO Q6H PRN For Pain Ref 0 12/02/15 Bisacodyl (Bisacodyl Rectal)10 Mg/30 Ml Enema10 Mg RC PRN PRN For Constipation 12/02/15 Loratadine (Claritin)10 Mg Fyiiksw99 Mg PO DAILY Ref 0 12/02/15 Ubidecarenone/Vit E Acetate (Co Q-10 100 mg Softgel)1 Each Capsule1 Each PO TID 06/12/15 Multivitamin W-Minerals/Lutein (Centrum Silver Ultra Men's Tab)1 Each Tablet1 Each PO DAILY 06/12/15 Aspirin 81 Mg Rbtcvp76 Mg PO DAILY Ref 0 06/12/15 Esomeprazole Magnesium (Nexium)40 Mg Capsule.dr40 Mg PO DAILY #90 06/12/15 Finasteride 5 Mg Tablet5 Mg PO DAILY #90 06/12/15 Discontinued Reported Medications Cyanocobalamin (Vitamin B-12) (Vitamin B-12)1,000 Mcg/1 Ml Drops1,000 Mcg PO DAILY 05/06/17 Acetaminophen 325 Mg Lfmffv219 Mg PO Q4H PRN For Fever Ref 0 05/06/17 Calcium Citrate 200 Mg Qiohai164 Mg PO DAILY 06/12/15 Hydrocortisone 2.5 % Cream.appl30 Gm RC BID PRN For Itching 12/18/16 Terazosin 5 Mg Capsule5 Mg PO HS Ref 0 12/18/16 Erythromycin Ophth Oint 3.5 Gm Oint...g.1 Appl OP TID #1 TUBE Ref 0 12/18/16 Oxybutynin Chloride 5 Mg Tablet5 Mg PO BID Ref 0 12/18/16 Ca Cmb 1/Vit D3/B-6/FA/B12/Av (Vitamin D3-Aloe 1,000 Unit Tab)1 Each Tablet1 Each PO BID 06/12/15 History History of ENT Problems?: Yes HEENT History: Positive for:: Cataracts (S/P EXTRACTION) Dysphagia (stricture S/P ESOPHAGEAL DILATION R/T INCLUSIVE BODY MYOSITIS) Denture Type: Full- Upper Full- Lower Teeth Condition: No Teeth Hx of Heart Problems?: Yes Cardiovascular History: Positive for:: Heart Murmur (HX OF. 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 Hx of GI Problems?: Yes Other GI Pertinent History: HX OF INCLUSIVE BODY MYOSITIS W/ ESOPHAGEAL STRICTURE-REQUIRES PEG TUBE W/ FEEDINGS HX CELLULITIS/ABCESS @ PEG SITE 12/2016 S/P I&D HX CONSTIPATION Hx of Problems?: Yes Genitourinary History: Positive for:: Urinary Tract Infection (CURRENT) Denies:: HX of Hemodialysis Kidney Stones HX of Peritoneal Dialysis: No Other Pertinent History: C/OF LUTS Male Hx: Positive for:: Prostate Problems (BPH/URINARY RETENTION=CURRENT PROBLEM) Denies:: Scrotal Mass Testicular Surgery Skin History: Denies:: History Skin Disorders? Pressure Ulcers Hx Musculoskeletal Problems?: Yes Musculoskeletal History: Positive for:: Back Injury ([place] 1982) Denies:: Joint Replacement Musculoskeletal Trauma Hx of Psycho/Social Problems?: No Hx Surgeries?: Yes (back surgery, peg tube placement,I&D PEG SITE ABCESS) Hx Any Other Health Problems?: Yes Other History: Positive for:: Hospitalization Denies:: Cancer Endocrine Disease Thyroid Disease History Blood Transfusions: Denies:: Blood Transfusions Hx Diabetes: No Hx Alcohol Use: NoHx Substance Use: No Smoking Status: Former Smoker Have You Smoked inLast 12 mo: No Stop/Bang S-Snoring: Do You Snore Loudly: Yes T-Tired: feel tired, fatigued: No O-Obsered: Observed not breath: No P-Blood Pressure: treated: Yes B- Body Mass Index > 35 kg/m2: No A- Age over 50: Yes N- Neck Large Circumference: No G- Gender Male: Yes LISA Total Score: 4 Risk Assessment Category Category 1A: Patient has history of documented sleep apnea, and HAS NOT received any narcotic, sedative or anesthesia administration during this stay. Category 1B: Patient has history of documented sleep apnea, and HAS received any narcotic , sedative or anesthesia administration during this stay Category 2: Patient has SUSPECTED Obstructive Sleep Apnea, and HAS received any narcotic , sedative or anesthesia administration during this stay. Category 3: Patient has SUSPECTED Obstructive Sleep Apnea and HAS NOT received narcotic, sedative or anesthesia administration during this stay. Category 4: Outpatient in Procedural Areas with known sleep apnea or who screen positive for High Risk via the STOP/BANG questionnaire. Exam Exam Vital Signs Vital Signs Date Time Temp Pulse Resp B/P Pulse Ox O2 Delivery O2 Flow Rate FiO2 05/08/17 07:16 35.6 83 16 137/57 98 Room Air General Appearance: Alert, Oriented X3 HEENT/AIRWAY: MP 1 Lungs: Clear to Auscultation Heart: Murmur Meds/Labs/Diagnostics Admission Meds Current Medications Lactated Ringer's (Lr) 1,000 ml @ 120 mls/hr Q8H20M IV Last administered on t 07:13; Start 05/08/17 at 05:00; Stop 05/08/17 at 13:19 Plan Impression Patient chart reviewed, patient interviewed and anesthestic plan with risks, benefits, and alternatives discussed, and informed consent obtained. NPO per Anesth. Guidelines: No ASA Physical Status: ASA3 Severe Disease Anesthetic Plan: Kamilah Whitehead MD May 08, 2017 08:29
[2017-05-08] MEDS: fentaNYL-PF 50 mCg/mL 2 mL Inj IVPUSH PRN ×3 (12:24→13:24)
--- NOTE | 2017-05-08 12:56 | PCM.ANEP1 ---
Post Anesthesia PACU Phase 1 Assessment Vital Signs Vital Signs Date Time Temp Pulse Resp B/P Pulse Ox O2 Delivery O2 Flow Rate FiO2 05/08/17 12:45 74 18 146/60 97 Room Air 05/08/17 12:40 74 18 147/63 97 Room Air 05/08/17 12:25 75 18 148/66 97 Room Air 05/08/17 12:20 78 17 145/60 98 Room Air 05/08/17 12:15 78 19 135/62 93 Room Air 05/08/17 12:10 36.2 77 16 142/50 95 Room Air 05/08/17 12:05 36.2 76 14 148/56 96 Room Air 05/08/17 07:16 35.6 83 16 137/57 98 Room Air Anesthetic Administered: GA Level of Alertness: Awake, talking STARKEY's with Equal Strength: Yes Pain: No Nausea or Vomiting: No CV Function & Hydration Stable: Yes Airway Device: Oxygen Delivery: Simple Mask Lungs: Clear to Auscultation PACU Phase 2 Assessment Complications: No Follow up Care: No Patient Instructions Provided: Yes Kamilah Mccabe MD May 08, 2017 12:56
--- NOTE | 2017-05-09 21:08 | OP ---
[address] [address] OPERATIVE REPORT PATIENT: ALEX HWANG : 1925 MR#: [id number] ADMIT: 05/08/2017 JOB ID: [id number] DATE OF SURGERY: 05/08/2017 PROCEDURE: Transurethral resection of prostate. SURGEON: Lisandra Cordova MD. ANESTHESIA: General. PREOPERATIVE DIAGNOSIS(ES): BPH with urinary retention. POSTOPERATIVE DIAGNOSIS(ES): BPH with urinary retention. INDICATIONS: The patient is an 89-year-old gentleman with a history of BPH and progressive urinary problems, catheter dependent. At this point in time, with urinary retention. Electing TURP as a chance to try to become catheter free. PROCEDURE IN DETAIL: After appropriate informed consent was obtained, the patient was brought to the operating room. He had been on preop antibiotics, culture directed with his chronic catheter, and also culture- specific antibiotics presurgery. The patient received IV antibiotics. SCDs were placed. Adequate general anesthesia induced. He was carefully placed in dorsal lithotomy position. All pressure points were carefully padded. Cleaned, prepped, and draped in the usual sterile fashion. Rigid scope was introduced into his bladder which was surveyed in a systematic fashion and noted once again to be highly trabeculated with both UOs visible. Prostate was noted to have bilobar hypertrophy, right greater than left. The cystoscope was removed. The visual obturator was used to advance the 26-Cambodian continuous-flow resectoscope sheath into the patient's bladder. We then used the bipolar setup. We used the cutting loop initially to resect initially on the patient's right side, as this was the side with the bulkier area of tissue. This was done in quadrants with great care taken to avoid the ureteral orifices and also avoid extending beyond the verumontanum. We then after resecting about 20 g, 30 g of tissue, we proceeded to change to the button and used this for hemostasis and further ablation of tissue in bipolar fashion. Same landmarks were used. At termination of the procedure, hemostasis was excellent. Patient did have a vascular prostate despite being on finasteride over time. He was irrigated to very light pink urine. The scope was removed. A 24-Cambodian two-way catheter was placed, left to gravity drainage, irrigated once again, and placed on light traction. Patient tolerated the procedure very well. Was awakened, taken in stable condition to the postanesthesia care unit.
--- NOTE | 2017-05-12 12:32 | PATH ---
SURGICAL PATHOLOGY Attending Physician:Lisandra Cordova MD CASE STATUS: Signed Out PATIENT NAME: ALEX HWANG PID: [id number] : 1925 DATE COLLECTED:05/08/2017 21:38 SPECIMEN: Prostate, Chips CLINICAL HISTORY: URINARY RETENTION, BENIGN PROSTATIC HYPERPLASIA RETURN IN 89 YEAR OLD 1). 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 Benign urothelial mucosa is also present. ICD10: N40.1 GROSS DESCRIPTION: The specimen is received in formalin, labeled with the patient's name, sublabeled as prostate chips, and consists of multiple fragments of torre-white rubbery prostatic tissue (7.7 g by 0.5 x 4.5 x 1.2 cm in aggregate). Section code: (A-D) prostatic tissue. Specimen entirely submitted. 05/10/17 ICD-9 CODES: CPT CODES: 1: 22719 Electronically Signed Out Priti Pierce MD [facility] [address], [place] [address] Technical component performed at [facility], [facility] [address], [place], [address]
== END | disposition home or self-care (01) ==
LOC: SAS 06:50
PROVIDERS: ATTEND Urology
DX: N40.1 Benign prostatic hyperplasia with lower urinary tract symptoms (principal); R33.8 Other retention of urine; I10 Essential (primary) hypertension; I35.0 Nonrheumatic aortic (valve) stenosis; I42.9 Cardiomyopathy, unspecified; E78.5 Hyperlipidemia, unspecified; M19.90 Unspecified osteoarthritis, unspecified site; K21.9 Gastro-esophageal reflux disease without esophagitis; J45.909 Unspecified asthma, uncomplicated; D64.9 Anemia, unspecified; Z97.8 Presence of other specified devices; Z79.82 Long term (current) use of aspirin; Z87.440 Personal history of urinary (tract) infections; Z87.891 Personal history of nicotine dependence
CPT/HCPCS: 52601; 93005; J1100; J1170; J2405; J2704; J3010; J7120

== ENCOUNTER 2017-05-09 18:39 | Inpatient (IN) | payer MEDICARE ==
[~2017-05-09] VITALS: Ht 182.9 cm; Wt 72.4 kg
[2017-05-09] VITALS (9 sets, daily range): BP systolic 155–183; BP diastolic 56–84; PULSE 81–122; RESP 21–32; O2SAT 93–100
[~2017-05-09 18:39] MED LIST changes: -ACET325T51 PO; -Belladonna Alk-Opium 60 mg Rectal Suppository RECTAL ONE; -CALC200T6 PO; -CYAN100085 PO; -CeFAZolin 2 Gm/50 mL D5W Duplex Bag IV ONE; -CeFAZolin Inj 2 GM in IV Premix 1 EACH IV ONE; -Dexamethasone 4 mg/mL Inj IVPUSH PRN; -Dexamethasone 4 mg/mL Inj ONE; -EPHEDrine Sulfate 50 mg/mL Inj IVPUSH PRN; -EPHEDrine/NS 5 mg/mL 5 mL Syringe ONE; -HYDROcodone-APAP 5-325 mg Tablet PO PRN; -HYDROcodone-APAP 7.5-325 mg/15 mL 15 mL Solution ONE; -HYDROmorphone 0.5 mg/0.5 mL iSecure Syringe ONE; -HYDROmorphone 1 mg/mL Inj IVPUSH PRN; -Lactated Ringer's 1,000 ML IV ONE; -Lactated Ringer's 1,000 ML IV SCH; -Lactated Ringer's 500 ML IV PRN; -MetoCLOpramide 5 mg/mL 2 mL Inj IVPUSH PRN; -Ondansetron 2 mg/mL 2 mL Inj IVPUSH PRN; -Ondansetron 2 mg/mL 2 mL Inj ONE; -Ondansetron 8 mg ODT Tablet PO PRN; -Phenazopyridine 97.5 mg Tablet ONE; -Phenylephrine 10,000 mCg/mL Inj IVPUSH PRN; -Propofol 10,000 mCg/mL 20 mL Inj ONE; -fentaNYL-PF 50 mCg/mL 2 mL Inj ONE
--- NOTE | 2017-05-09 18:39 | ED.REPORT ---
HPI-Dyspnea / Wheezing Date of Service May 09, 2017 ED Provider: Steffen Hawley DO The pt is an 89 year old male with a hx of asthma, valvular heart disease, cardiomyopathy, HTN, bladder catheter, and feeding tube presenting to the ED via EMS complaining of shortness of breath onset 20 minutes prior to arrival at the emergency department. He claims that he swallowed pills and then aspirated. According to EMS, he was initially hypoxic with an oxygen saturation in the 70s , his BP was 181/74, and his breathing improved with oxygen, then it got worse as he arrived at the ED. He received prostate surgery here yesterday and is feeling some sharp pain from that. Nursing Notes Stated Complaint: SHORTNESS OF BREATH Nursing Notes Reviewed: Yes Allergies: Coded Allergies: No Known Allergies (Verified Allergy, Unknown, 12/17/16) Scheduled Amlodipine (Amlodipine) 5 Mg Tablet 5 MG PO DAILY Aspirin (Aspirin) 81 Mg Tablet 81 MG PO DAILY Calcium Citrate (Calcitrate) 200 Mg Tablet 400 MG PO DAILY Cholecalciferol (Vitamin D3) (Vitamin D3) 1,000 Unit Tab.chew 1,000 UNIT PO DAILY Cholestyramine (Questran Powder) 378 Gm Powd 1 DOSE PO 4-8X/DAY Clindamycin (Clindamycin) 300 Mg Capsule 300 MG PO QID Doxazosin (Cardura) 4 Mg Tablet 4 MG PO HS Esomeprazole Magnesium (Nexium) 40 Mg Capsule.dr 40 MG PO DAILY Finasteride (Finasteride) 5 Mg Tablet 5 MG PO DAILY Hydrocortisone (Hydrocortisone) 2.5 % Cream.appl 30 GM RC PRN Hydrocortisone (Proctozone-Hc) 30 Gm Cream.appl 30 GM RC PRN Lactose-Free Food/Fiber (Jevity 1.5 Elvis Liquid) 1,000 Ml Liquid 1,200 ML PO 6X DAY Loperamide HCl (Imodium A-D) 2 Mg Capsule 2 MG PO PRN Loratadine (Claritin) 10 Mg Capsule 10 MG PO DAILY Multivitamin W-Minerals/Lutein (Centrum Silver Ultra Men's Tab) 1 Each Tablet 1 EACH PO DAILY Sulfamethoxazole/Trimeth 400-80 mg (Bactrim 400-80 mg) 1 Each Tablet 1 TABLET PO TID Tamsulosin ER (Tamsulosin ER) 0.4 Mg Cap.er.24h 0.4 MG PO HS Terazosin (Terazosin) 5 Mg Capsule 5 MG PO HS Ubidecarenone/Vit E Acetate (Co Q-10 100 mg Softgel) 1 Each Capsule 1 EACH PO TID Scheduled PRN Acetaminophen (Tylenol Arthritis) 650 Mg Tablet.er 650 MG PO DAILY PRN PRN For Pain Bisacodyl (Bisacodyl Rectal) 10 Mg/30 Ml Enema 10 MG RC PRN PRN PRN For Constipation Dextromethor/Acetamin/Diphen (Diabetic Tussin Nighttime Liq) 118 Ml Liquid 10 ML PO Q4H PRN PRN PRN Hydrocodone-Acetaminophen 5-325 mg (Hydrocodone-Acetaminophen 5-325 mg) 1 Each Tablet 1-2 TABLET PO Q6H PRN PRN For Pain Lactose-Free Food/Fiber (Jevity 1.5 Elvis Liquid) 1,000 Ml Liquid 1,000 ML PO DIRECTED PRN PRN NUTRITION Magnesium Hydroxide (Milk of Magnesia) 400 Mg/5 Ml Oral.susp 30 ML PO DAILY PRN PRN PRN Na Phos,M-B/Na Phos,Di-Ba (Fleet Enema) 133 Ml Enema 133 ML RC DAILY PRN PRN PRN Ondansetron (Ondansetron) 4 Mg Tablet 4 MG PO EVERY 4 HOURS PRN PRN For Nausea Phenazopyridine (Phenazopyridine) 100 Mg Tablet 100 MG PO TID PRN PRN painful urination Triamcinolone Acet (Triamcinolone Acetonide Cream) 1 Applic/0.25 Gm Cr 1 APPLIC EXT BID PRN PRN For Itching General Time Seen by MD: 18:40 Chief Complaint Shortness of breath Hx Obtained From: Patient, EMS Arrived By: Ambulance Sudden in Onset?: Yes Onset Occurred: 16 - 30 minutes ago (20 minutes ago) Symptom Duration: Since onset Recent Healthcare: Recent doctor visit, Recent hospitalization Similar Sx Previous: Yes Past Medical History Past Medical History Notes: DNR with limited interventions Admitted December 01-2015 Past Medical History Cardiomyopathy Esophageal stricture status post dilation, and status post PEG tube History of malignant hypertension alternating a demand ischemia, 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 GI: Denies: Vomiting Physical Exam Hypoxic Initial Vital Signs Vital Signs (First) Date Time Temp Pulse Resp B/P Pulse Ox O2 Delivery O2 Flow Rate FiO2 05/09/17 18:45 36.4 118 26 183/76 93 05/09/17 19:04 BiPAP 100 Initial VS: Reviewed Head / Eyes: Atraumatic, Normocephalic ENT: Mucous membranes moist Abdomen / GI: Soft, Non-tender Back: No CVA tenderness Lymphatic: No lymphadenopathy Extremities: Vascular intact Skin: Warm, Dry Neurologic: Alert, Oriented Psychiatric: Mood/affect normal, Behavior normal General/Constitutional: Awake, Alert Distress / Hydration: Positive: Distress moderate Wheezing / Retractions: Positive: Wheezing moderate Rales / Rhonchi: Positive: Rhonchi coarse L, Rhonchi coarse R Tachypneic Heart Rate / Rhythm: Positive: Tachycardia Interpretation & Diagnostics Lab Results Interpretation Result Diagram: 05/09/170 05/09/17 185 Test 05/09/17 18:50 05/09/17 19:34 05/09/17 20:35 White Blood Count 10.9th/mm3 (3.8-10.1) Red Blood Count 3.09mil/mm3 (4.40-5.80) Hemoglobin 9.8g/dL (13.8-17.2) Hematocrit 30.1% (41.0-50.0) Mean Corpuscular Volume 97.4fL (81-100) Mean Corpuscular Hemoglobin 31.7pg (27.0-35.0) Mean Corpuscular Hemoglobin Concent 32.6% (32.0-37.0) Red Cell Distribution Width 12.8% (12.3-15.4) Platelet Count 230bil/L (150-400) Neutrophils (%) (Auto) 51.7% (40-74) Lymphocytes (%) (Auto) 36.6% (14-46) Monocytes (%) (Auto) 10.4% (4-12) Eosinophils (%) (Auto) 0.8% (0-5) Basophils (%) (Auto) 0.1% (0-3) Erythrocyte Sedimentation Rate 63mm/hr (0-30) Sodium Level 131mEq/L (134-144) Potassium Level 4.4mEq/L (3.5-5.2) Chloride Level 95mEq/L (97-108) Carbon Dioxide Level 25mmol/L (18-29) Blood Urea Nitrogen 39mg/dL (8-27) Creatinine 0.68mg/dL (0.76-1.27) Estimat Glomerular Filtration Rate 117mL/min (>59) Glucose Level 144mg/dL (60-99) Calcium Level 8.6mg/dL (8.5-10.1) Magnesium Level 2.2mg/dL (1.6-2.6) Total Bilirubin 0.2mg/dL (0.0-1.2) Aspartate Amino Transf (AST/SGOT) 31U/L (0-50) Alanine Aminotransferase (ALT/SGPT) 22U/L (0-44) Alkaline Phosphatase 72U/L (25-160) Troponin T 0.096ug/L (0.0-0.011) Total Protein 7.0g/dL (6.4-8.4) Albumin 3.9g/dL (3.4-5.0) Procalcitonin 0.05ng/mL (0.00-0.08) Urine Color [place] (YELLOW) Urine Appearance Hazy (CLEAR,HAZY) Urine pH 6.0 (5.0-8.0) Urine Specific [place] 1.016 (1.003-1.035) Urine Protein mg/dL (NEG,TRACE) Urine Glucose (UA) Negativemg/dL (NEGATIVE) Urine Ketones mg/dL (NEGATIVE) Urine Occult Blood Large (NEGATIVE) Urine Nitrite (NEGATIVE) Urine Bilirubin (NEGATIVE) Urine Urobilinogen mg/dL (NORMAL) Urine Leukocyte Esterase (NEGATIVE) Urine RBC >50/hpf (0-2) Urine WBC 11-50/hpf (0-5) Urine Epithelial Cells Moderate/hpf (NONE-MOD) Urine Crystals None seen (NONE SEEN) Urine Bacteria Few/hpf (NONE-FEW) Urine Hyaline Casts None/lpf (NONE) Urine Granular Casts None seen (NONE SEEN) Urine Waxy Casts None seen (NONE SEEN) Urine Red Blood Cell Casts None seen (NONE SEEN) Urine White Blood Cell Casts None seen (NONE SEEN) Urine Mucus Present (None Seen) Urine Trichomonas None seen (NONE SEEN) Urine Yeast None (NONE SEEN) Urinalysis Comment Color interference Urine Culture Reflexed Indicated Lactic Acid Level 1.6mmol/L (0.4-2.0) Lab Results Interpretation: Arterial Blood Gas Report: pH: 7.388 pCO2: 42 pO2: 191.0 cHCO3-: 24.8 cBase: 0.3 ECG Interpretation ECG Interpretation: Sinus tachycardia Borderline prolonged NE interval 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 This could represent developing pneumonia or atelectasis. Dictated by: Dorene Zuniga M.D. on 05/09/2017 at 19:14 View: Portable, 1 view Interpretation / Wet Read by: Interpret - Radiologist CT Chest Interpretation IMPRESSION: 1. Suboptimal evaluation of the pulmonary arteries beyond the main branches. No main pulmonary embolus. 2. Despite motion artifact, there appears to be presence of multiple small bibasilar and middle lobe areas of patchy opacities. Overall appearance is suggestive of infection/inflammatory change. Dictated by: Dorene Zuniga M.D. on 05/09/2017 at 21:01 Interpretation / Wet Read by: Interpret - Radiologist Re-Eval/Medical Decision Med Decision/Clinical Course Hypoxic respiratory failure likely due to aspiration pneumonitis. Patient will be admitted, Rocephin including a myosin given. Patient has required BiPAP since arrival in order to maintain oxygen saturation and overall comfort. Re-Evaluation/Progress #1: Time of Eval: 18:52 Re-Evaluation/Progress Note: Patient rechecked. Discussed patient history with his son. Re-Evaluation/Progress #2: Time of Eval: 19:39 Re-Evaluation/Progress Note: Rechecked patient. Discussed radiology results. Re-Evaluation/Progress #3: Time of Eval: 20:20 Re-Evaluation/Progress Note: Patient rechecked. Discussed plan for admission. Patient understands and agrees with plan. Consultation : Referral / Consult Name: Dhiraj Hensley MD Consulted With: Hospitalist Call Returned at: 21:45 Buffet Manager: Will see patient, Agrees with plan, Accepts admit Note: Will accept admit. Counseled Regarding: Diagnosis, Lab results, Need for admission Discharge & Departure Impression: Primary Impression: Respiratory failure Additional Impression: Aspiration pneumonitis Disposition: ADMITTED TO HOSPITAL Referrals: Wyatt Jeronimo MD (PCP) Crit Care Except Billable Proc Time Spent: 75-104 minutes Services Performed: Patient management by me, Time spent at bedside, Reviewing test results Critical Care Notes: See MDM Scribe Attestation Portions of this note were transcribed by Yosef Cruz. I, Dr. Hawley personally performed the history, physical exam and medical decision-making; I reviewed and confirmed the accuracy of the information in the transcribed note. Signed by: Eryn Mckeon, 05/09/2017 copies to: Wyatt Jeronimo MD, Timothy S DO May 09, 2017 18:39 May 09, 2017 19:40
[2017-05-09] MEDS ORDERED: 0.9% Sodium Chloride 1,000 ML IV ONE (18:43)
[2017-05-09] MEDS ORDERED: Albuterol-Ipratropium 3 mL Inhalation Solution NEB ONE (18:45)
[2017-05-09] MEDS ORDERED: Albuterol-Ipratropium 3 mL Inhalation Solution ONE (18:45)
[2017-05-09 18:54] LABS: BASOPHILS % (AUTO) 0.1 % (0-3); EOSINOPHILS % (AUTO) 0.8 % (0-5); MONOCYTES % (AUTO) 10.4 % (4-12); Mean Corpuscular Hemoglobin 31.7 pg (27.0-35.0); Mean Corpuscular Volume 97.4 fL (81-100); NEUTROPHILS % (AUTO) 51.7 % (40-74); Platelet Count 230 bil/L (150-400)
--- NOTE | 2017-05-09 19:16 | DRSVH ---
PROCEDURE: X-RAY CHEST ONE VIEW, PORTABLE ([id number]) INDICATIONS: hypoxia, possible aspiration TECHNIQUE: One view of the chest was acquired. COMPARISON: [facility], CR, XR CHEST 1VW (PORTABLE), 12/02/2015, 11:17. FINDINGS: Surgical changes and devices: None. Lungs and pleura: Very minimal appearance of opacity is present within the right base. Mediastinum: Mediastinal contours appear normal. Heart size is normal. Bones and chest wall: No suspicious bony lesions. Overlying soft tissues appear unremarkable. IMPRESSION: Very minimal right basilar streaky opacity. This could represent developing pneumonia or atelectasis. Dictated by: Dorene Zuniga M.D. on 05/09/2017 at 19:14 Approved by: Dorene Zuniga M.D. on 05/09/2017 at 19:14
[2017-05-09 19:22] LABS: ERYTHROCYTE SEDIMENTATION RATE 63 mm/hr (0-30)
[2017-05-09 19:38] LABS: Magnesium 2.2 mg/dL (1.6-2.6)
[2017-05-09 19:46] LABS: TROPONIN T 0.096 ug/L (0.0-0.011)
[2017-05-09 19:50] LABS: APPEARANCE,URINE HAZY (CLEAR,HAZY); COLOR,URINE ORANGE (YELLOW)
[2017-05-09 19:51] LABS: OCCULT BLOOD,URINE LARGE (NEGATIVE)
--- NOTE | 2017-05-09 19:52 | ABG ---
DateTimeAnalyzed 19:43:00 -_ pH ____7.388 - 7.350 7.450 pCO2 ___42.1__ -mmHg 35.0 45.0 pO2 191 -mmHg 80.0 100 HCO3- ___24.8__ -mmol/L 22.0 26.0 ABE ____0.3__ -mmol/L -2.0 2.0 tHb ____9.8__ -g/dL 12.0 18.0 O2Hb ___97.5__ -% COHb ____0.7__ -% 1.5 MetHb ____1.1__ -% 0.4 1.5 sO2 ___99.3__ -% 95.0 FIO2 ___60.0__ -% Set_RR ___28.0__ -b/min Vt __650.0__ -L Drawn By AF - Date/Time Notified____ 19:51:00 -_ Spontaneous_RR ___16.0__ -b/min Oxygen Device 1 ____BIPAP - Notified By AF - Notified Whom ___DR. O'BORIS - B 760 -mmHg tO2 ___13.8__ -Vol% Sanjiv test _Positive -
[2017-05-09] MEDS ORDERED: cefTRIAXone Inj 2,000 MG in Dextrose 5% Minibag Plus 50 ML IV ONE (20:20)
[2017-05-09] MEDS ORDERED: Clindamycin Inj 900 MG in IV Premix 1 EACH IV ONE (20:20)
--- NOTE | 2017-05-09 21:06 | DRSVH ---
PROCEDURE: CT ANGIO CHEST PULMONARY EMBOLISM ([id number]) INDICATIONS: hypoxia, recent surgery TECHNIQUE: After the administration of intravenous contrast, 2 mm thick sections acquired from the pulmonary api clari to the posterior costophrenic angles. 3-dimensional maximum intensity projection (MIP) coronal a nd sagittal reformats were then acquired through the thorax. For radiation dose reduction, the follo wing was used: automated exposure control, adjustment of mA and/or kV according to patient size. COMPARISON: None. FINDINGS: Image quality: Motion is present in multiple portions of the examination. Motion in combination with injection timing and artifact makes evaluation of potential emboli beyond the main pulmonary arteries suboptimal. Pulmonary arteries: Pulmonary arteries are normal in size, and demonstrate no intraluminal filling d efects to suggest central pulmonary embolism. Distal branches are considered nondiagnostic for evalu ation. Lungs and pleura: Despite motion, there is felt to be multiple small patchy areas of opacity within t he lungs bilaterally predominantly within the lower and mid lobes. Mediastinum: Heart size is normal, without pericardial effusion. No mediastinal or hilar adenopathy . Thoracic aorta is normal in caliber and enhancement. Esophagus is normal in caliber, without hiat al hernia. Bones and chest wall: No suspicious bony lesions. Ribs and thoracic spine appear intact throughout. Thyroid gland is unremarkable within visualized portions. No axillary or supraclavicular adenopath y. Abdomen: Visualized upper abdominal solid organs appear normal in the early arterial phase of enhanc ement. IMPRESSION: 1. Suboptimal evaluation of the pulmonary arteries beyond the main branches. No main pulmonary embolu s. 2. Despite motion artifact, there appears to be presence of multiple small bibasilar and middle lobe areas of patchy opacities. Overall appearance is suggestive of infection/inflammatory change. Dictated by: Dorene Zuniga M.D. on 05/09/2017 at 21:01 Approved by: Dorene Zuniga M.D. on 05/09/2017 at 21:04
[2017-05-09] MEDS ORDERED: Alum-Mag Hydrox-Simeth 30 mL Suspension PO PRN (21:20)
[2017-05-09] MEDS ORDERED: Vancomycin Inj 1,250 MG in 0.9% Sodium Chloride 250 ML IV ONE (21:30)
[2017-05-09] MEDS: Vancomycin Dose per Pharmacist XX SCH (21:32)
[2017-05-09] MEDS ORDERED: Piperacillin-Tazo 3.375 Gm Inj 3.375 GM in Dextrose 5% Minibag Plus 50 ML IV ONE (21:35)
--- NOTE | 2017-05-09 21:35 | PCM.HPMED ---
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 Initially the patient claims that he swallowed pills and then aspirated. Son confirms the patient does not take any medications by mouth and are all crushed and given through J tube. Patient mentioned the medication he was referring to was the Jevity feeding tube. Associated symptoms includes dry cough but denies any fever or chills. Patient denies any sick contacts. Denies any leg edema or orthopnea. Patient denies any chest pain Of note the patient had a TURP procedure yesterday. Patient has not bring in the hospital in the last 3 months According to EMS, he was initially hypoxic with an oxygen saturation in the 70s , his BP was 181/74, and his breathing improved with oxygen, then it got worse as he arrived at the ED. Review of Systems: Pertinent positives as noted in HPI. All other systems were reviewed and are negative Allergies Coded Allergies: No Known Allergies (Verified Allergy, Unknown, 12/17/16) Home Medications From [facility], not yet confirmed Rianna Lim [id number] 1925 05/01/2017 08:30 AM Page: 08/22 acetaminophen 325 mg capsule amlodipine 5 mg tablet take 1 tablet by oral route every day Arthritis Pain Relief (acetaminophen) ER 650 mg tablet,extend release take 2 tablet by oral route every 8 hours as needed swallowing whole with water. Do not break, crush, dissolve and/or chew. aspirin 81 mg chewable tablet chew 1 tablet by oral route every day Bisac-Evac 10 mg rectal suppository insert 1 suppository by rectal route every day as needed for constipation calcium citrate 200 mg (950 mg) tablet take 2 tablets by mouth daily Centrum Silver 400 mcg-250 mcg chewable tablet take 1 tablet by mouth daily Claritin Liqui-Gel 10 mg capsule coenzyme Q10 10 mg capsule take 1 tablet by via tube 3 times every day Diabetic Tussin DM 10 mg-100 mg/5 mL oral liquid take 10 milliliter by oral route every 4 hours as needed doxazosin 4 mg tablet take 1 tablet by oral route every evening before bed erythromycin 5 mg/gram (0.5 %) eye ointment apply (1CM) by ophthalmic route 3 times every day ribbon into the lower conjunctival sac(s) in the affected eye(s) esomeprazole magnesium 40 mg capsule,delayed release take 1 capsule by oral route every day finasteride 5 mg tablet take 1 tablet by oral route every day Fleet Enema 19 gram-7 gram/118 mL hydrocodone 5 mg-acetaminophen 325 mg tablet take 1-2 tablet by oral route every 6 hours as needed for pain hydrocortisone 2.5 % topical cream apply by topical route 2 times every day a thin layer to the affected area(s) Jevity 1.2 Elvis 0.06 gram-1.2 kcal/mL oral liquid loperamide 2 mg tablet take 2 tablet by oral route after 1st loose stool and 1 tablet (2 mg) after each next bowel movement; do not exceed 16 mg in 24hrs Milk of Magnesia 400 mg/5 mL oral suspension take 30 milliliter by oral route every day as needed, followed by a full glass (8 oz) of liquid ondansetron HCl 4 mg tablet take 2 tablet by oral route every 8 hours for 2 days oxybutynin chloride 5 mg tablet take 1 tablet by oral route twice daily for bladder control. phenazopyridine 100 mg tablet take 1 tablet by oral route 3 times every day after meals as needed Proctozone-HC 2.5 % topical cream perineal applicator apply by topical route 2- 4 times every day a thin layer to the affected area(s) Questran 4 gram oral powder take 1 scoop by oral route 4- 8 times every day in divided doses if >4 grams tamsulosin 0.4 mg capsule take 1 capsule by oral route every day 1/2 hour following the same meal each day terazosin 5 mg capsule take 1 capsule by oral route every day at bedtime triamcinolone acetonide 0.025 % topical cream apply by topical route 2 times every day a thin layer to the affected area(s) Vitamin D3 1,000 unit capsule Zofran ODT 4 mg disintegrating tablet take 1 tablet by oral route every [address] on top of the tongue where they will dissolve, then swallow PMH Myopathy Esophageal stricture status post dilation, and status post PEG tube History of malignant hypertension alternating a demand ischemia, moderate aortic stenosis 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 Surgical History Esophageal dilation Back surgery 30 years ago Feeding tube Recent TURP procedure Family History No relevant family history Social History Hx Alcohol Use: No Hx Substance Use: No Hx Tobacco Use: Yes Smoking Status: Former Smoker Living Arrangement: Intermediate Facility Exam Vital Signs Vital Sign - Last Date Time Temp Pulse Resp B/P Pulse Ox O2 Delivery O2 Flow Rate FiO2 05/09/17 21:09 98 26 166/56 99 BiPAP 05/09/17 19:14 36.4 05/09/17 19:04 100 Exam General: Alert, Oriented X3, Cooperative, No acute Distress Eyes: PERRLA, Scleral Anicteric Mouth: Mouth Normal, Mucous Membranes Moist/[place] Neck: Supple, no Thyromegaly, trachea central. Chest & Lungs: Clear to auscultation & percussion, No adventitious breath sounds, no crackles, no wheeze Cardiovascular: Normal S1, Normal S2, No Murmurs/Rubs/Gallops, Regular Rate/ Rhythm, (No JVD, no peripheral edema) Pulses: Radial (present and equal), Dorsalis Pedi (present and equal) Abdomen: Soft, Non-tender, Non-distended, Normoactive bowel tones. J tube in place with no infection at site Musculoskeletal: Unremarkable. Normal range of motion, no swollen or erythematous joints Extremities: No edema, no cyanosis, no clubbing. Skin: No rashes. Warm and dry, no erythematous areas Neurological: Grossly neurologically intact, Normal Speech, Sensation Intact Lymphatic: Lymph nodes Cervical and Axillary not palpable Lab and Diagnostics Labs Laboratory Tests Test 05/09/17 18:50 05/09/17 19:34 05/09/17 20:35 White Blood Count 10.9th/mm3 (3.8-10.1) Red Blood Count 3.09mil/mm3 (4.40-5.80) Hemoglobin 9.8g/dL (13.8-17.2) Hematocrit 30.1% (41.0-50.0) Mean Corpuscular Volume 97.4fL (81-100) Mean Corpuscular Hemoglobin 31.7pg (27.0-35.0) Mean Corpuscular Hemoglobin Concent 32.6% (32.0-37.0) Red Cell Distribution Width 12.8% (12.3-15.4) Platelet Count 230bil/L (150-400) Neutrophils (%) (Auto) 51.7% (40-74) Lymphocytes (%) (Auto) 36.6% (14-46) Monocytes (%) (Auto) 10.4% (4-12) Eosinophils (%) (Auto) 0.8% (0-5) Basophils (%) (Auto) 0.1% (0-3) Erythrocyte Sedimentation Rate 63mm/hr (0-30) Sodium Level 131mEq/L (134-144) Potassium Level 4.4mEq/L (3.5-5.2) Chloride Level 95mEq/L (97-108) Carbon Dioxide Level 25mmol/L (18-29) Blood Urea Nitrogen 39mg/dL (8-27) Creatinine 0.68mg/dL (0.76-1.27) Estimat Glomerular Filtration Rate 117mL/min (>59) Glucose Level 144mg/dL (60-99) Calcium Level 8.6mg/dL (8.5-10.1) Magnesium Level 2.2mg/dL (1.6-2.6) Total Bilirubin 0.2mg/dL (0.0-1.2) Aspartate Amino Transf (AST/SGOT) 31U/L (0-50) Alanine Aminotransferase (ALT/SGPT) 22U/L (0-44) Alkaline Phosphatase 72U/L (25-160) Troponin T 0.096ug/L (0.0-0.011) Total Protein 7.0g/dL (6.4-8.4) Albumin 3.9g/dL (3.4-5.0) Procalcitonin 0.05ng/mL (0.00-0.08) Urine Color [place] (YELLOW) Urine Appearance Hazy (CLEAR,HAZY) Urine pH 6.0 (5.0-8.0) Urine Specific [place] 1.016 (1.003-1.035) Urine Protein mg/dL (NEG,TRACE) Urine Glucose (UA) Negativemg/dL (NEGATIVE) Urine Ketones mg/dL (NEGATIVE) Urine Occult Blood Large (NEGATIVE) Urine Nitrite (NEGATIVE) Urine Bilirubin (NEGATIVE) Urine Urobilinogen mg/dL (NORMAL) Urine Leukocyte Esterase (NEGATIVE) Urine RBC >50/hpf (0-2) Urine WBC 11-50/hpf (0-5) Urine Epithelial Cells Moderate/hpf (NONE-MOD) Urine Crystals None seen (NONE SEEN) Urine Bacteria Few/hpf (NONE-FEW) Urine Hyaline Casts None/lpf (NONE) Urine Granular Casts None seen (NONE SEEN) Urine Waxy Casts None seen (NONE SEEN) Urine Red Blood Cell Casts None seen (NONE SEEN) Urine White Blood Cell Casts None seen (NONE SEEN) Urine Mucus Present (None Seen) Urine Trichomonas None seen (NONE SEEN) Urine Yeast None (NONE SEEN) Urinalysis Comment Color interference Urine Culture Reflexed Indicated Lactic Acid Level 1.6mmol/L (0.4-2.0) Microbiology 05/09/17 Blood Culture, Received Pending 05/09/17 Urine Culture, Received Pending Result Diagram: 05/09/[id number]/09/[id number] Assessment & Plan Rianna Lim is an 89 year old male with unspecified cardiomyopathy, 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 1. Acute Hypoxic Respiratory Failure. Present on admission Differential diagnosis includes Pulmonary embolism (ruled out with CT chest) patient also has history of Cardiomyopathy but does not have clinical evidence of fluid overload - continue BIPAP for non invasive ventilation - Patient express wish for short term intubation if needed - treat underlying cause (see below) 2. Aspiration pneumonia with Healthcare associated pneumonia. 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 Aspiration suspected despite patient being NPO, question if the feeding tube is in position and not causing aspiration. With recent TURP procedure patient could have aspirated during the procedure - continue Vancomycin, Levaquin and Zosyn for empiric antibiotics - de escalate antibiotics based on cultures - procalcitonin with appropriate cultures, MRSA screen - nothing by mouth - consider contrast imaging to confirm appropriate position of feeding tube 3 Elevated troponin. Present on admission Likely due to demand ischemia due to pneumonia. Denies any anginal symptoms and EKG showing no ischemic changes - trending troponin overnight - monitor on telemetry 4 Hypertension, Chronic Presumed stable at the alf - continue Amlodipine 5 mg daily 5 Esophageal stricture status post dilation, and status post PEG tube - continue Jevity 1.2 Elvis 0.06 gram-1.2 kcal/mL oral liquid - Nutrition consult to monitor tube feeding 6 BPH with chronic painful urination chronic - continue Tamsulosin 0.4 mg daily, Phenazopyridine 100 mg tid PRN - continue Finasteride 5 mg daily and Oxybutynin 5 mg bid 7 Chronic pain syndrome on Narcotics - continue hydrocodone 5 mg-acetaminophen 325 mg tablet 1-2 tabs q 6 hours as needed - Acetaminophen as needed for mild pain/fever/headache - Bowel regimen as needed - Antiemetic as needed Patient admitted under inpatient status with expected length of stay > 2 midnights for severity of present symptoms, complexities of treatment plan and risk for adverse event . Resuscitation Status: Limited Interventions Dhiraj Hensley MD May 09, 2017 21:[address] on top of the tongue where they will dissolve, then swallow Resuscitation Status: Limited Interventions Dhiraj Hensley MD May 09, 2017 21:35
--- NOTE | 2017-05-09 22:00 | NUR ---
Admission to [facility] Room 2020 Pt arrived on a gurney with clindamycin along with NS hanging and on 13L oxymask and was transferred to bed in room via board slide. RT was with the pt with a BiPAP machine that they set up with FiO2 50%. Pt tolerated the BiPAP well. Pt's lungs are coarse throughout and the upper lobes have expiratory squeaks. Pt's HR and BP were both elevated upon arrival. Pt arrived with a pre-existing elizalde catheter that is patent and draining rashi urine to gravity. Pt has continuous pulse ox function turned on the hard wire in the room for closer monitoring of the pt's SpO2 levels.
[2017-05-09] MEDS: 0.9% Sodium Chloride 1,000 ML IV SCH (23:12)
[2017-05-09] MEDS: levoFLOXacin Inj 750 MG in IV Premix 1 EACH IV SCH (23:46)
[2017-05-10] VITALS (10 sets, daily range): BP systolic 120–152; BP diastolic 47–62; PULSE 87–101; RESP 20–23; O2SAT 94–99
[2017-05-10] MEDS: Heparin 5,000 Unit/mL Inj SUBQ SCH ×3 (01:32→16:53)
--- NOTE | 2017-05-10 01:42 | PCM.CONPHA ---
Subjective Date of Service: May 10, 2017 Requesting Provider: Dhiraj Hensley MD Difficulty breathing and coughing Reason for Pharmacy Consult: Vancomycin Dosing Objective Vital Signs Date Time Temp Pulse Resp B/P Pulse Ox O2 Delivery O2 Flow Rate FiO2 05/10/17 00:34 115 23 94 50 05/09/17 23:15 CPAP/BIPAP 05/09/17 22:14 37.1 122 21 173/84 BiPAP 05/09/17 22:13 36.5 105 26 175/68 95 BiPAP 05/09/17 22:09 26 95 60 05/09/17 21:41 36.5 105 22 175/68 97 BiPAP 05/09/17 21:09 98 26 166/56 99 BiPAP 05/09/17 19:41 81 26 155/56 99 BiPAP 05/09/17 19:14 36.4 97 24 163/64 100 BiPAP 05/09/17 19:04 32 99 100 05/09/17 19:04 97 25 99 BiPAP 100 05/09/17 18:45 36.4 118 26 183/76 93 Intake and Output 05/08/17 05/09/17 05/10/17 00:00 00:00 00:00 Intake Total 1000 ml Balance 1000 ml Weight (Kilograms): 73.300 Height (Feet): 6 Test 05/09/17 18:50 05/09/17 19:34 05/09/17 20:35 White Blood Count 10.9th/mm3 (3.8-10.1) Red Blood Count 3.09mil/mm3 (4.40-5.80) Hemoglobin 9.8g/dL (13.8-17.2) Hematocrit 30.1% (41.0-50.0) Mean Corpuscular Volume 97.4fL (81-100) Mean Corpuscular Hemoglobin 31.7pg (27.0-35.0) Mean Corpuscular Hemoglobin Concent 32.6% (32.0-37.0) Red Cell Distribution Width 12.8% (12.3-15.4) Platelet Count 230bil/L (150-400) Neutrophils (%) (Auto) 51.7% (40-74) Lymphocytes (%) (Auto) 36.6% (14-46) Monocytes (%) (Auto) 10.4% (4-12) Eosinophils (%) (Auto) 0.8% (0-5) Basophils (%) (Auto) 0.1% (0-3) Erythrocyte Sedimentation Rate 63mm/hr (0-30) Sodium Level 131mEq/L (134-144) Potassium Level 4.4mEq/L (3.5-5.2) Chloride Level 95mEq/L (97-108) Carbon Dioxide Level 25mmol/L (18-29) Blood Urea Nitrogen 39mg/dL (8-27) Creatinine 0.68mg/dL (0.76-1.27) Estimat Glomerular Filtration Rate 117mL/min (>59) Glucose Level 144mg/dL (60-99) Calcium Level 8.6mg/dL (8.5-10.1) Magnesium Level 2.2mg/dL (1.6-2.6) Total Bilirubin 0.2mg/dL (0.0-1.2) Aspartate Amino Transf (AST/SGOT) 31U/L (0-50) Alanine Aminotransferase (ALT/SGPT) 22U/L (0-44) Alkaline Phosphatase 72U/L (25-160) Troponin T 0.096ug/L (0.0-0.011) Total Protein 7.0g/dL (6.4-8.4) Albumin 3.9g/dL (3.4-5.0) Procalcitonin 0.05ng/mL (0.00-0.08) Urine Color [place] (YELLOW) Urine Appearance Hazy (CLEAR,HAZY) Urine pH 6.0 (5.0-8.0) Urine Specific [place] 1.016 (1.003-1.035) Urine Protein mg/dL (NEG,TRACE) Urine Glucose (UA) Negativemg/dL (NEGATIVE) Urine Ketones mg/dL (NEGATIVE) Urine Occult Blood Large (NEGATIVE) Urine Nitrite (NEGATIVE) Urine Bilirubin (NEGATIVE) Urine Urobilinogen mg/dL (NORMAL) Urine Leukocyte Esterase (NEGATIVE) Urine RBC >50/hpf (0-2) Urine WBC 11-50/hpf (0-5) Urine Epithelial Cells Moderate/hpf (NONE-MOD) Urine Crystals None seen (NONE SEEN) Urine Bacteria Few/hpf (NONE-FEW) Urine Hyaline Casts None/lpf (NONE) Urine Granular Casts None seen (NONE SEEN) Urine Waxy Casts None seen (NONE SEEN) Urine Red Blood Cell Casts None seen (NONE SEEN) Urine White Blood Cell Casts None seen (NONE SEEN) Urine Mucus Present (None Seen) Urine Trichomonas None seen (NONE SEEN) Urine Yeast None (NONE SEEN) Urinalysis Comment Color interference Urine Culture Reflexed Indicated Lactic Acid Level 1.6mmol/L (0.4-2.0) Assessment/Plan Assessment/Plan A: * Vancomycin dosing by pharmacy for 89 y/o man with aspiration pneumonia with healthcare associated pneumonia * The patient received a 1250 mg IV vancomycin loading dose * He is also being started on Levaquin and Zosyn * Estimated CrCl for this patient is 76 mL/min (Cockcroft & Gault) * Estimated vancomycin half-life is 11 hours and estimated Vd is 48 liters P: * Start vancomycin 750 mg IV every 12 hours * Target a vancomycin trough in the range of 15 - 20 mcg/mL * Draw a trough level prior to the fourth dose Thank you. Pharmacy will continue to follow this patient. Diann Urbina May 10, 2017 01:42
--- NOTE | 2017-05-10 02:32 | PCM.ADCARE ---
Advance Care Planning Note Purpose of Encounter: Active Diagnoses: Esophageal stricture status post dilation, and status post PEG tube Inclusion body myositis with progressive weakness Hyperlipidemia Hypertension These active diagnoses are sufficient risk that focused discussion on advance car planning is indicated in order to allow the patient to thoughtfully consider personal goals of care and if situations arise that prevent the ability to personally give input to insure appropriate representation of their personal desires through documentation or informed surrogate decision makers Parties in Attendance: patient, son and me Decisional Capacity: Good Goals of Care Determinations: I reviewed and his desires for ongoing aggressive care, including potential intubation and mechanical ventilation as well as CPR. Also discussed who would speak on his behalf should he be unable to do so, he states his son Luis Felipe Lim has Power of Supervisor Loading Patient understands his conditions and has expressed his wishes CODE STATUS: Limited Intervention with No CPR and short term intubation Time Spent Adv.Care Planning: Total time spent [id number] in education and discussion directly related to Advance Care Plannin minutes Dhiraj Hensley MD May 10, 2017 02:32
[2017-05-10 04:29] LABS: BASOPHILS % (AUTO) 0.1 % (0-3); EOSINOPHILS % (AUTO) 0 % (0-5); MONOCYTES % (AUTO) 6.2 % (4-12); Mean Corpuscular Hemoglobin 32.6 pg (27.0-35.0); Mean Corpuscular Volume 96.7 fL (81-100); NEUTROPHILS % (AUTO) 90.1 % (40-74); Platelet Count 183 bil/L (150-400)
--- NOTE | 2017-05-10 06:43 | NUR ---
Respiratory/HR Pt SpO2 is >95% on BiPAP at FiO2 45%. Pt continues to tolerate wearing the BiPAP. During the admit and for the first few hours of the pt being on the floor the pt had to be intermittently suctioned of thick yellow phlegm that the pt was coughing up. During admit the pt's HR was elevated in the 130s. As the pt continued to remain on the BiPAP the pt's HR has steadily gone down. Pt is now SR 80s-90s.
--- NOTE | 2017-05-10 06:47 | NUR ---
Medication Reconciliation Pt's Med Rec is partially completed. There is one medication that is in the EMR med rec home meds list Terazosin that I am unable to find on the pt's med list from [facility].
[2017-05-10] MEDS: 0.9% Sodium Chloride 1,000 ML IV SCH ×2 (07:18→16:53)
[2017-05-10] MEDS: Piperacillin-Tazo 3.375 Gm Inj 3.375 GM in Dextrose 5% Minibag Plus 50 ML IV SCH ×2 (08:05→16:53)
[2017-05-10] MEDS: Vancomycin Dose per Pharmacist XX SCH (08:05)
[2017-05-10 08:45] LABS: TROPONIN T 0.114 ug/L (0.0-0.011)
--- NOTE | 2017-05-10 09:41 | NUR ---
Consult received and appreciated, however, following review of the chart, it has been decided no skilled AUTOM[employer]IVE [employer]NET SALES CONSULTANT services are indicated at this time. Pt has an esophageal stricture with incompetent gastric valves requring PEG tube. Pt. is strict NPO. Thank you.
--- NOTE | 2017-05-10 09:55 | ABG ---
DateTimeAnalyzed 09:44:16 -_ pH ____7.427 - 7.350 7.450 pCO2 ___40.0__ -mmHg 35.0 45.0 pO2 ___84.5__ -mmHg 80.0 100 HCO3- ___26.3__ -mmol/L 22.0 26.0 ABE ____1.8__ -mmol/L -2.0 2.0 tHb ____8.5__ -g/dL 12.0 18.0 O2Hb ___96.8__ -% COHb ____1.9__ -% 1.5 MetHb ____0.0__ -% 0.4 1.5 sO2 ___98.5__ -% 95.0 FIO2 ___70.0__ -% Drawn By NB - Date/Time Notified____ 09:54:00 -_ Oxygen Device 1 oxy mask @ 9 liters -_ Notified By NB - K+ ____4.3__ -mmol/L 3.5 5.0 tO2 ___11.8__ -Vol% Sanjiv test N/A -
[2017-05-10] MEDS: Vancomycin Inj 750 MG in 0.9% Sodium Chloride 250 ML IV SCH (11:44)
--- NOTE | 2017-05-10 15:13 | NUR ---
Social Work: Assessment D&A: Please see initial assessment. BLACK TOPPER reviewed EMR, which states pt is at [facility] with aspiration pneumonitis hypoxia. Pt's primary insurance is Medicare with an [employer] supp. Pt's PCP is Wyatt Jeronimo MD. Pt's readmit score has not yet been assessed. BLACK TOPPER met with pt at pt's bedside and explained BLACK TOPPER role. Pt reports that he lives at [facility]. Pt's son, Luis Felipe Lim is his designated optical effects layout person and DPOA ([phone]). Pt report that we have DPOA PPW at [facility] but not hid advanced directives; pt encouraged to bring this document to facility for scanning. Pt reports that he uses a w/c at baseline, and relies on [facility] for transportation. Pt has a hx of multiple admissions to [facility] and would be willing to return , if appropriate at d/c. BLACK TOPPER explained to pt that w/c transportation to a SNF or back to [facility] may not be covered by his insurance; pt reports understanding. P.T. has not yet assessed pt so it is unknown what the rec will be at this time but pt may experience deconditioning during this hospitalization. BLACK TOPPER provided pt with a list of all Medicare-contracted facilities in the area. Pt does not utilize any community services, nor does he have a caseworker intake. P: Evolving. Pt likely to d/c back the [facility] vs. SNF. BLACK TOPPER team will continue to follow. CHUCKY Ortiz Addendum: 05/10/17 at 1521 by GIBSON GARCIA SS Amended: Links added.
[2017-05-10] MEDS ORDERED: FIBER PO PRN (19:10)
[2017-05-10] MEDS ORDERED: BISACODYL 10 MG RC PRN (19:10)
[2017-05-10] MEDS ORDERED: Sodium Biphos-Phos 133 mL Enema RECTAL PRN (19:10)
[2017-05-10] MEDS ORDERED: HYDROCORTISONE 30 GM RC SCH ×2 (19:10)
[2017-05-10] MEDS ORDERED: [UNRECOGNIZED DRUG - OTHER] PO SCH (19:10)
[2017-05-10] MEDS ORDERED: PHENAZOPYRIDINE 100 MG PO PRN (19:10)
[2017-05-10] MEDS ORDERED: LACTOSE FREE FOOD PO PRN (19:10)
--- NOTE | 2017-05-10 19:15 | PCM.PNMED ---
Subjective Date of Service May 10, 2017 Subjective Overnight: Patient tolerated BiPAP well throughout the night with maintenance of saturations. Some suctioning of thick yellow foam was required. Vital signs remained stable Today: Patient seen and examined. Son present in room at time of interview and exam. Patient has no specific complaints. Denies shortness of breath or chest pain. States that he is breathing well with supplemental oxygen in place. Exam Vital Signs Vital Sign - Last Date Time Temp Pulse Resp B/P Pulse Ox O2 Delivery O2 Flow Rate FiO2 05/10/17 06:07 87 05/10/17 04:22 21 96 45 05/10/17 03:22 37.9 120/61 BiPAP Intake and Output 05/09/17 05/09/17 05/10/17 Cumulative From/Thru 15:00 23:00 07:00 05/09/17 18:45 - 05/10/17 06:37 Intake Total 1000 ml 834 ml 1834 ml Output Total 1100 ml 1100 ml Balance 1000 ml -266 ml 734 ml Intake Oral 0 ml 0 ml IV Total 1000 ml 834 ml 1834 ml Output Urine Total 1100 ml 1100 ml Exam General: Awake and alert laying in hospital bed in no acute distress son present at bedside during exam HEENT: Normocephalic, atraumatic. Pinpoint pupils Neck: Supple with full range of motion. No jugular venous distension. Cardiovascular: Regular rate and rhythm with II/ systolic murmur heard at the right upper sternal border. Pulmonary: Mild bilateral expiratory wheezes heard best at the upper anterior lung caruso. Normal respiratory effort with no use of accessory muscles Abdomen: Bowel tones present. Soft, nontender, nondistended. J-tube in place with no erythema or discharge from insertion site. Extremities: No clubbing, cyanosis, edema Skin: Normal temperature, turgor, and texture Neurological: Cranial nerves grossly intact. Normal muscle strength, tone, and bulk. Psychiatric: Normal mood and affect. Alert and oriented to person, place, and time. IVs and Medications Medications Reviewed: Medications were reviewed in detail Lab and Diagnostics Result Diagram: 05/10/170 05/10/17399 X-Rays, CTs and MRIs . X-RAY CHEST ONE VIEW, PORTABLE IMPRESSION: Very minimal right basilar streaky opacity. This could represent developing pneumonia or atelectasis. Dictated by: Dorene Zuniga M.D. on 05/09/2017 CT ANGIO CHEST PULMONARY EMBOLISM IMPRESSION: 1. Suboptimal evaluation of the pulmonary arteries beyond the main branches. No main pulmonary embolus. 2. Despite motion artifact, there appears to be presence of multiple small bibasilar and middle lobe areas of patchy opacities. Overall appearance is suggestive of infection/inflammatory change. Dictated by: Dorene Zuniga M.D. on 05/09/2017 Additional Diagnostics DateTimeAnalyzed 19:43:00 -_ pH ____7.388 - 7.350 7.450 pCO2 ___42.1__ -mmHg 35.0 45.0 pO2 191 -mmHg 80.0 100 HCO3- ___24.8__ -mmol/L 22.0 26.0 ABE ____0.3__ -mmol/L -2.0 2.0 tHb ____9.8__ -g/dL 12.0 18.0 O2Hb ___97.5__ -% COHb ____0.7__ -% 1.5 MetHb ____1.1__ -% 0.4 1.5 sO2 ___99.3__ -% 95.0 FIO2 ___60.0__ -% Set_RR ___28.0__ -b/min Vt __650.0__ -L Drawn By AF - Date/Time Notified____ 19:51:00 -_ Spontaneous_RR ___16.0__ -b/min Oxygen Device 1 ____BIPAP - Notified By AF - Notified Whom ___DR. O'DORENE - B 760 -mmHg tO2 ___13.8__ -Vol% Sanjiv test _Positive - DateTimeAnalyzed 09:44:16 -_ pH ____7.427 - 7.350 7.450 pCO2 ___40.0__ -mmHg 35.0 45.0 pO2 ___84.5__ -mmHg 80.0 100 HCO3- ___26.3__ -mmol/L 22.0 26.0 ABE ____1.8__ -mmol/L -2.0 2.0 tHb ____8.5__ -g/dL 12.0 18.0 O2Hb ___96.8__ -% COHb ____1.9__ -% 1.5 MetHb ____0.0__ -% 0.4 1.5 sO2 ___98.5__ -% 95.0 FIO2 ___70.0__ -% Drawn By NB - Date/Time Notified____ 09:54:00 -_ Oxygen Device 1 oxy mask @ 9 liters -_ Notified By NB - K+ ____4.3__ -mmol/L 3.5 5.0 tO2 ___11.8__ -Vol% Sanjiv test N/A - Assessment & Plan Rianna Lim is an 89 year old male with unspecified cardiomyopathy, 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 Hospital day 2 Acute Hypoxic Respiratory Failure. Present on admission. Ongoing Differential diagnosis includes Pulmonary embolism (ruled out with CT chest) patient also has history of Cardiomyopathy but does not have clinical evidence of fluid overload - continue BIPAP for non invasive ventilation - Patient express wish for short term intubation if needed - treat underlying cause (see below) - ABGs have normalized Aspiration pneumonia with Healthcare associated pneumonia. 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 Aspiration suspected despite patient being NPO, question if the feeding tube is in position and not causing aspiration. With recent TURP procedure patient could have aspirated during the procedure - continue Vancomycin, Levaquin and Zosyn for empiric antibiotics - Appropriate cultures and serologies pending - de escalate antibiotics based on cultures, still pending - Pro calcitonin trending up - nothing by mouth - consider contrast imaging to confirm appropriate position of feeding tube Elevated troponin. Present on admission Likely due to demand ischemia due to pneumonia. Denies any anginal symptoms and EKG showing no ischemic changes - Troponin remains elevated, slight upward trend - Continue monitor on telemetry Hypertension, Chronic - continue Amlodipine 5 mg daily Esophageal stricture status post dilation, and status post PEG tube, present on admission - continue Jevity 1.2 Elvis 0.06 gram-1.2 kcal/mL oral liquid - Nutrition consult to monitor tube feeding BPH with chronic painful urination chronic, present on admission - continue Tamsulosin 0.4 mg daily, Phenazopyridine 100 mg tid PRN - continue Finasteride 5 mg daily and Oxybutynin 5 mg bid Chronic pain syndrome on Narcotics - continue hydrocodone 5 mg-acetaminophen 325 mg tablet 1-2 tabs q 6 hours as needed - Acetaminophen as needed for mild pain/fever/headache - Bowel regimen as needed - Antiemetic as needed Disposition: As remains inpatient status pending further diagnostic testing and antibiotic administration . Pain Evaluation: Adequate Pain Control VTE Prophylaxis: Sub-Q Heparin (Unfractionated) Resuscitation Status: Limited Interventions Attending Statement The patient was seen and examined together with Dr. Mccann on 05/10/17 and I have added additional information to the note above. RYLIE MCCANN DO May 10, 2017 08:27 Rosalinda Estevez DO May 11, 2017 12:16
[2017-05-10] MEDS ORDERED: Phenazopyridine 97.5 mg Tablet PO PRN ×2 (19:25→19:58)
[2017-05-10] MEDS ORDERED: Hydrocortisone 2.5% 28 Gm Cream TOPICAL SCH (19:25)
[2017-05-10] MEDS ORDERED: guaiFENesin DM 200-20 mg/10 mL Syrup PO PRN (19:35)
[2017-05-10] MEDS: Triamcinolone 0.1% 30 Gm Cream TOPICAL SCH (20:30)
[2017-05-10] MEDS ORDERED: DOXAZOSIN 4 MG PO SCH (21:00)
[2017-05-10] MEDS: levoFLOXacin Inj 750 MG in IV Premix 1 EACH IV SCH (23:13)
[2017-05-11] VITALS (10 sets, daily range): BP systolic 135–165; BP diastolic 57–111; PULSE 88–112; RESP 16–22; O2SAT 94–98
[2017-05-11] MEDS: Vancomycin Inj 750 MG in 0.9% Sodium Chloride 250 ML IV SCH ×3 (01:00→22:27)
[2017-05-11] MEDS: Heparin 5,000 Unit/mL Inj SUBQ SCH ×4 (01:00→23:35)
[2017-05-11] MEDS: Piperacillin-Tazo 3.375 Gm Inj 3.375 GM in Dextrose 5% Minibag Plus 50 ML IV SCH ×3 (03:11→16:41)
[2017-05-11 04:25] LABS: BASOPHILS % (AUTO) 0.2 % (0-3); EOSINOPHILS % (AUTO) 0.7 % (0-5); Mean Corpuscular Volume 98.5 fL (81-100); NEUTROPHILS % (AUTO) 84.4 % (40-74); Platelet Count 174 bil/L (150-400)
[2017-05-11 05:49] LABS: Magnesium 1.9 mg/dL (1.6-2.6)
[2017-05-11 05:56] LABS: TROPONIN T 0.112 ug/L (0.0-0.011)
[2017-05-11] MEDS ORDERED: Pantoprazole 40 mg ER24 Tablet PO SCH (06:30)
--- NOTE | 2017-05-11 06:43 | NUR ---
Respiratory/HR Pt was able to titrated down from 4.5L oxymask to 2.5L oxymask with SpO2 >92%. Pt's HR goes down to SR 70s-90s with sleep and O2 sats go up as well. When pt is awake the HR goes up to ST 100s-110s and O2 sat goes down and pt c/o chest tightness and SOB and pt increases resp rate to over 24 at that time. Pt was asked about anxiety and he said he has never been diagnosed as having anxiety but was waking up from a bad dream and then felt that he could not breath. Increased pt's O2 to 3.5L and pt SpO2 is now 97% and pt's HR is now in the 90s and pt is calm and sitting in the bed. Oncoming RN has been made aware that the pt's O2 has been titrated down to 2.5L with pt tolerating this level of supplemental O2 with a SpO2 >92%.
[2017-05-11] MEDS: Triamcinolone 0.1% 30 Gm Cream TOPICAL SCH ×2 (08:30→20:30)
[2017-05-11] MEDS: Vancomycin Dose per Pharmacist XX SCH (08:30)
[2017-05-11] MEDS: 0.9% Sodium Chloride 1,000 ML IV SCH ×3 (08:45→23:18)
[2017-05-11] MEDS: Vitamins C,E, Omega-3, Mineral Tablet PO SCH (08:48)
[2017-05-11] MEDS: Cholestyramine Resin Powder 4 Gm Packet PO SCH ×4 (09:11→21:11)
[2017-05-11] MEDS: Polyethylene Glycol (PEG) 17 Gm Powder PO PRN ×2 (09:21→20:12)
--- NOTE | 2017-05-11 10:06 | NUR ---
PEG and GI regurgitation Pt. called nurse 30 minutes after he had his meds via PEG. He stated, "It (meds plus flushes) comes up." Pt. had total 100 mL of PEG feeding (meds and flushes). Placement of PEG was confirmed with auscultation and aspiration prior to medication administration. Increased HOB from 30 to 45 degree. Explained to pt. regarding aspiration and emptying stomach by gravity. Pt. agreeable with intervention. Dr. Mccann was aware of the above concern.
[2017-05-11] MEDS ORDERED: Vancomycin Serum Trough XX ONE (10:30)
--- NOTE | 2017-05-11 10:53 | NUR ---
NUTRITION ASSESSMENT: Assess: 89 YO male, admitted for aspiration pneumonitis. Pt has severe esophageal stricture, PEG tube placed in 2014. Normally self-administers 5 cans Jevity 1.2 via gravity feeds. Pt states Jevity 1.5 gives him diarrhea but he needs a bowel movement right now. Pt interested in bringing in his own TF of Jevity 1.2 but can't get it until later. Pt okay with starting Jevity 1.5 after he has a bowel movement. Pt states he would like the TF ran continuously at this time because he doesn't think his stomach could handle bolus feedings. PMHx: Esophageal stricture s/p dilation, PEG tube placement, malignant HTN, aortic stenosis, sporadic inclusion body myositis, anemia, HLD. LABS: Reviewed. Cr 0.50, Ca 8.0, Alb 3.0 MEDICATIONS: Reviewed. IV fluids. DIET: NPO. NUTRITION SUPPORT (HOME): Jevity 1.2 x 5 cans (1185 mL/day) provides 1425 kcal, 66 g pro, 955 mL free h20 GI symptoms/stool: No BM recorded yet ANTHROPOMETRICS: Current Wt: 70.0, BMI 20.9 kg/m2, Admit wt: 73.3 kg. ESTIMATED NEEDS: Calories: 4948-6759 kcal (25-30 kcal/kg BW) Protein: 70-105 g (1.0-1.5 g/kg BW) Fluids: 7663-3698 mL (1 ml/kcal) NUTRITION DIAGNOSIS: 1) Inadequate oral intake related to esophageal stricture as evidenced by chronic PEG with chronic TF. INTERVENTION: 1) Currently Jevity 1.2 is not on our TF formulary. Recommend TF of Jevity 1.5 starting at 25 ml/hr, once tolerance established, advance 10 ml q 4 hr to goal rate of 50 ml/hr. Flush dose 40 ml q 4 hr. At goal TF will provide 1725 kcal, 73 g protein; meeting 99% calorie, 100% protein needs. Pt would like TF to be started after he has a bowel movement, nursing aware. Signed orders placed in chart. Recommend adjusting flush doses if pt no longer needs IV fluids. 2) Pt plans to bring his own TF of Jevity 1.2 to the hospital for use, as Jevity 1.5 gives him diarrhea. MONITOR/EVALUATE: TF start, TF tolerance/advance, labs, GI/nutrition status. Follow per high nutrition risk guidelines.
--- NOTE | 2017-05-11 13:11 | NUR ---
Constipation Pt. reported constipation and no BM for "5 or 6 days." PRN Miralax and PRN Senna 2 tablets were given this morning. No BM so far. Pt. stated he would like suppository to ease his constipation in the early afternoon.. PRN Dulcolax SUPP given. Will monitor BM/constipation. Will start PEG feeding after he has BMs. Addendum: 05/11/17 at 1846 by RENE STRINGER RN No BM after suppository Dulcolax. Pt. requested "do something, something needs to be done. I'm so distended." He wanted PRN enema when it was offered. Enema given. Awaiting BM. Pt. adamant that no BM no PEG feeding.
--- NOTE | 2017-05-11 13:48 | DRSVH ---
PROCEDURE: CT ABDOMEN WITHOUT CONTRAST ([id number]) INDICATIONS: J tube placement evaluation TECHNIQUE: After the administration of oral contrast, 5 mm thick sections acquired from the diaphragms to the il iac crests. 5 mm coronal and sagittal reformats were then performed. For radiation dose reduction, the following was used: automated exposure control, adjustment of mA and/or kV according to patient size. COMPARISON: [facility], CT, CT ABD PELVIS W CON, 12/18/2016, 3:48. FINDINGS: Image quality: Excellent. Lung bases: There is moderate left and mild right dependent airspace opacity. Trace bilateral pleural effusions are present. Heart size is normal. Solid organs: Liver and spleen are normal in size. Gallbladder is mildly distended as before.. Warren creas is normal in contours. No adrenal nodules. Both kidneys are normal in size, without hydroneph rosis or nephrolithiasis. Previously seen hydronephrosis and ureteral dilatation has resolved. Peritoneum and bowel: A small hiatal hernia is present. A gastrostomy tube is present, tip of which is in the gastric lumen. Bowel loops demonstrate normal wall thickness and caliber. No free fluid or air. Nodes and vessels: No retroperitoneal or mesenteric adenopathy by size criteria. Aorta and inferior vena cava are normal in size. Bones: No suspicious bony lesions. No vertebral body compression fractures. Miscellaneous: No ventral hernias. IMPRESSION: 1. Tip of gastrostomy tube is within the gastric lumen. 2. Resolved bilateral hydronephrosis. 3. Left greater than right bibasilar pneumonia with small parapneumonic effusions. 4. Small hiatal hernia. Dictated by: Mayda Thomson M.D. on 05/11/2017 at 13:43 Approved by: Mayda Thomson M.D. on 05/11/2017 at 13:46
--- NOTE | 2017-05-11 14:06 | PCM.PNMED ---
Subjective Date of Service May 11, 2017 Subjective Patient was seen and examined by me today. This morning, patient states that he feels ill overall. He reports shortness of breath, cough and productive sputum. On ROS, he denies headaches, visual changes, chest pain, nausea, vomiting, abdominal pain, and dysuria. He has a leizalde catheter in place that is draining rashi colored urine. This morning, patient received medications via PEG tube which he states "came up". A CT of the abdomen has been ordered to confirm PEG placement. Overnight, patient was able to be titrated down from 4.5 L to 2.5 L oxymask with SpO2 >92%. No other acute events overnight. Exam Vital Signs Vital Sign - Last Date Time Temp Pulse Resp B/P Pulse Ox O2 Delivery O2 Flow Rate FiO2 05/11/17 03:42 37.2 91 20 143/61 97 OxyMask 3.50 05/10/17 08:15 40 Intake and Output 05/10/17 05/10/17 05/11/17 Cumulative From/Thru 15:00 23:00 07:00 05/09/17 18:45 - 05/11/17 06:33 Intake Total 1211 ml 1018 ml 4063 ml Output Total 925 ml 650 ml 2675 ml Balance 286 ml 368 ml 1388 ml Intake Oral 0 ml 0 ml 0 ml IV Total 1211 ml 1018 ml 4063 ml Output Urine Total 925 ml 650 ml 2675 ml Exam General: Patient is ill-appearing, lying on bed, AAOX3, mild acute distress, cooperative. HEENT: head normocephalic and atraumatic, PERRLA, EOMI, no scleral icterus, noninjected conjunctiva Neck: neck supple, non-tender, no lymphadenopathy, trachea midline, no JVD CV: tachycardic, regular rhythm, s1 and s2 heard, + systolic murmur, radial pulses 2+ and equal bilaterally, no rubs murmurs or gallops, no edema Lungs: Patient on 2.5 L O2 via oxy-mask, course breath sounds bilaterally with diffuse wheezing, no increased work of breathing Abdomen: normoactive bowel sounds on 4Q, soft, non-distended, non-tender to palpation, no organomegally, J-tube in place Skin: warm and dry Musculoskeletal: UE and LE strength equal but reduced bilaterally, full ROM bilaterally Neuro: Grossly neurologically intact, cranial nerves II through XII intact, no dyskinesia, dysmetria, or dysdiadochokinesia noted, sensation intact Psych: Normal mood and affect IVs and Medications Medications Reviewed: Medications were reviewed in detail Lab and Diagnostics Laboratory Tests Test 05/10/17 14:45 05/11/17 04:00 Troponin T 0.142ug/L (0.0-0.011) 0.112ug/L (0.0-0.011) White Blood Count 11.7th/mm3 (3.8-10.1) Red Blood Count 2.66mil/mm3 (4.40-5.80) Hemoglobin 8.5g/dL (13.8-17.2) Hematocrit 26.2% (41.0-50.0) Mean Corpuscular Volume 98.5fL (81-100) Mean Corpuscular Hemoglobin 32.0pg (27.0-35.0) Mean Corpuscular Hemoglobin Concent 32.4% (32.0-37.0) Red Cell Distribution Width 12.9% (12.3-15.4) Platelet Count 174bil/L (150-400) Neutrophils (%) (Auto) 84.4% (40-74) Lymphocytes (%) (Auto) 7.5% (14-46) Monocytes (%) (Auto) 7.0% (4-12) Eosinophils (%) (Auto) 0.7% (0-5) Basophils (%) (Auto) 0.2% (0-3) Sodium Level 138mEq/L (134-144) Potassium Level 3.5mEq/L (3.5-5.2) Chloride Level 103mEq/L (97-108) Carbon Dioxide Level 20mmol/L (18-29) Blood Urea Nitrogen 22mg/dL (8-27) Creatinine 0.50mg/dL (0.76-1.27) Estimat Glomerular Filtration Rate 166mL/min (>59) Glucose Level 74mg/dL (60-99) Calcium Level 8.0mg/dL (8.5-10.1) Magnesium Level 1.9mg/dL (1.6-2.6) Total Bilirubin 0.3mg/dL (0.0-1.2) Aspartate Amino Transf (AST/SGOT) 25U/L (0-50) Alanine Aminotransferase (ALT/SGPT) 16U/L (0-44) Alkaline Phosphatase 50U/L (25-160) Total Protein 5.7g/dL (6.4-8.4) Albumin 3.0g/dL (3.4-5.0) Procalcitonin 0.51ng/mL (0.00-0.08) Microbiology 05/09/17 Blood Culture - Preliminary, Resulted NO GROWTH AFTER 24 HOURS 05/10/17 Sputum Quality Screen - Final, Complete 05/09/17 Urine Culture - Preliminary, Resulted No growth to date Result Diagram: 05/11/17 0400 05/11/17 0400 Microbiology Microbiology 05/09/17 Blood Culture - Preliminary, Resulted NO GROWTH AFTER 24 HOURS 05/11/17 Adenovirus DNA (PCR) - Final, Complete Not Detected 05/11/17 Coronavirus 229E PCR - Final, Complete Not Detected 05/11/17 Coronavirus HKU1 PCR - Final, Complete Not Detected 05/11/17 Coronavirus NL63 PCR - Final, Complete Not Detected 05/11/17 Coronavirus OC43 PCR - Final, Complete Not Detected 05/11/17 Influenza Type A (PCR) - Final, Complete Not Detected 05/11/17 Influenza Type B (PCR) - Final, Complete Not Detected 05/11/17 Human Metapneumovirus (PCR) (KAYA) - Final, Complete Not Detected 05/11/17 Rhinovirus (PCR)(KAYA) - Final, Complete Not Detected 05/11/17 Parainfluenza Virus Type 1 (PCR) - Final, Complete Not Detected 05/11/17 Parainfluenza Virus Type 2 (PCR) - Final, Complete Not Detected 05/11/17 Parainfluenza Virus Type 3 (PCR) - Final, Complete Not Detected 05/11/17 Parainfluenza Virus Type 4 (NAAT) - Final, Complete Not Detected 05/11/17 Respiratory Syncytial Virus (PCR)TX - Final, Complete Not Detected 05/11/17 Chlamydia pneumoniae (PCR) - Final, Complete Not Detected 05/11/17 Mycoplasma pneumoniae DNA Detection - Final, Complete 05/10/17 Streptococcus pneumoniae Ag Screen - Final, Complete X-Rays, CTs and MRIs . X-RAY CHEST ONE VIEW, PORTABLE IMPRESSION: Very minimal right basilar streaky opacity. This could represent developing pneumonia or atelectasis. Dictated by: Dorene Zuniga M.D. on 05/09/2017 CT ANGIO CHEST PULMONARY EMBOLISM IMPRESSION: 1. Suboptimal evaluation of the pulmonary arteries beyond the main branches. No main pulmonary embolus. 2. Despite motion artifact, there appears to be presence of multiple small bibasilar and middle lobe areas of patchy opacities. Overall appearance is suggestive of infection/inflammatory change. Dictated by: Dorene Zuniga M.D. on 05/09/2017 Additional Diagnostics DateTimeAnalyzed 19:43:00 -_ pH ____7.388 - 7.350 7.450 pCO2 ___42.1__ -mmHg 35.0 45.0 pO2 191 -mmHg 80.0 100 HCO3- ___24.8__ -mmol/L 22.0 26.0 ABE ____0.3__ -mmol/L -2.0 2.0 tHb ____9.8__ -g/dL 12.0 18.0 O2Hb ___97.5__ -% COHb ____0.7__ -% 1.5 MetHb ____1.1__ -% 0.4 1.5 sO2 ___99.3__ -% 95.0 FIO2 ___60.0__ -% Set_RR ___28.0__ -b/min Vt __650.0__ -L Drawn By AF - Date/Time Notified____ 19:51:00 -_ Spontaneous_RR ___16.0__ -b/min Oxygen Device 1 ____BIPAP - Notified By AF - Notified Whom ___DR. O'DORENE - B 760 -mmHg tO2 ___13.8__ -Vol% Sanjiv test _Positive - DateTimeAnalyzed 09:44:16 -_ pH ____7.427 - 7.350 7.450 pCO2 ___40.0__ -mmHg 35.0 45.0 pO2 ___84.5__ -mmHg 80.0 100 HCO3- ___26.3__ -mmol/L 22.0 26.0 ABE ____1.8__ -mmol/L -2.0 2.0 tHb ____8.5__ -g/dL 12.0 18.0 O2Hb ___96.8__ -% COHb ____1.9__ -% 1.5 MetHb ____0.0__ -% 0.4 1.5 sO2 ___98.5__ -% 95.0 FIO2 ___70.0__ -% Drawn By NB - Date/Time Notified____ 09:54:00 -_ Oxygen Device 1 oxy mask @ 9 liters -_ Notified By NB - K+ ____4.3__ -mmol/L 3.5 5.0 tO2 ___11.8__ -Vol% Sanjiv test N/A - Assessment & Plan Rianna Lim is an 89 year old male with unspecified cardiomyopathy, 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 Hospital day 3 Acute Hypoxic Respiratory Failure. Present on admission. Ongoing Differential diagnosis includes Pulmonary embolism (ruled out with CT chest) patient also has history of Cardiomyopathy but does not have clinical evidence of fluid overload - continue BIPAP for non invasive ventilation - Patient express wish for short term intubation if needed - ABGs have normalized - Continue to monitor Aspiration pneumonia with Healthcare associated pneumonia. 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 Aspiration suspected despite patient being NPO, question if the feeding tube is in position and not causing aspiration. With recent TURP procedure patient could have aspirated during the procedure - continue Vancomycin, Levaquin and Zosyn for empiric antibiotics - MRSA screen pending -Viral PCR, strep pneumo urine and urine legionella were negative - de escalate antibiotics based on cultures, still pending - Pro calcitonin today slightly less than yesterday at 0.51 -WBC trending down to 11.7 today - nothing by mouth - non contrast CT of the abdomen has been ordered to confirm appropriate position of feeding tube Elevated troponin. Present on admission Likely due to demand ischemia due to pneumonia. Denies any anginal symptoms and EKG showing no ischemic changes - Troponin remains elevated, slight downward trend now - Continue monitor on telemetry Hypertension, Chronic Presumed stable at the assisted - continue Amlodipine 5 mg daily Esophageal stricture status post dilation, and status post PEG tube - continue Jevity 1.2 Elvis 0.06 gram-1.2 kcal/mL oral liquid - Nutrition consult to monitor tube feeding -Hold off tube feeding until position of PEG tube confirmed per CT BPH with chronic painful urination chronic - continue Tamsulosin 0.4 mg daily, Phenazopyridine 100 mg tid PRN - continue Finasteride 5 mg daily and Oxybutynin 5 mg bid Chronic pain syndrome dependent on Narcotics - continue hydrocodone 5 mg-acetaminophen 325 mg tablet 1-2 tabs q 6 hours as needed - Acetaminophen as needed for mild pain/fever/headache - Bowel regimen as needed - Antiemetic as needed Disposition: He remains inpatient status pending further diagnostic testing and antibiotic administration . Pain Evaluation: Adequate Pain Control VTE Prophylaxis: Sub-Q Heparin (Unfractionated) Resuscitation Status: Limited Interventions Attending Statement The patient was seen and examined together with Dr. Tejada on 05/11/17 and I have added additional information to the note above. Mary Anne Tejada DO May 11, 2017 07:56 Rosalinda Estevez DO May 11, 2017 16:11
--- NOTE | 2017-05-11 16:59 | DRSVH ---
[facility] [address] [place] [address] Echocardiogram Report Name: ALEX HWANG LStudy Date: 05/11/2017 Height: 72 in Hospital Exam Location: [facility] Weight: 154 lb Gender: Male BSA: 1.9 m2 : 1925 Age: 89 yrs BP: 152/ 58 mmHg Reason For Study: SOB/ELEV TROP Ordering Physician: HOSPITALIST [facility] Performed By: Shelbi Bocanegra Referring Physician: Tyron Vivar Interpretation Summary Only limited views were obtained 1. Normal left ventricular size with mildly increased wall thickness and normal systolic function with an estimated EF of 60-65%. Wall motion abnormalities are as noted below. 2. Grossly normal right ventricular size and systolic function 3. Valves were not optimally visualized When comparing the limited views obtained on this study to the previous study, the findings appear similar Procedure: The study quality was technically limited. The study quality was technically adequate. Comparison is made with the echocardiogram of 03/24/17. The patient was in sinus tachycardia with heart rates between 93 and 115 bpm during the exam. Left Ventricle: The left ventricle is normal in size. There is mild concentric left ventricular hypertrophy. The ejection fraction is estimated to be 60-65%. There is basal inferior wall akinesis. There is basal inferoseptal wall akinesis. Upon review of the previous images, these findings were present on the previous echo. Right Ventricle: Not optimally visualized . The size appears grossly normal. The right ventricular systolic function is normal. Aortic Valve: The aortic valve is trileaflet. The aortic valve is moderately calcified. Pericardium/ Pleura There is no pericardial effusion. There is no pleural effusion. MMode/2D Measurements & Calculations LVIDd: 4.2 cm LV ocampo. diameter/BSA (cm/m^2): 2.2 LVIDs: 3.0 cm FS: 29.8 % IVSd: 1.1 cm LVPWd: 1.3 cm LV sys. diameter/BSA (cm/m^2): 1.6 Reading Physician:04:[id number] PM
[2017-05-11] MEDS: levoFLOXacin Inj 750 MG in IV Premix 1 EACH IV SCH (20:13)
--- NOTE | 2017-05-11 20:37 | NUR ---
Tele HR noted in upper 40's, telephone triage nurse called to report 2nd degree HB. Lasted 12 seconds, pt asymptomatic, converted back to sinus tach 90's. Reported to Dr. Hay.
[2017-05-12] VITALS (11 sets, daily range): BP systolic 149–174; BP diastolic 50–82; PULSE 92–118; RESP 16–23; O2SAT 94–97
[2017-05-12] MEDS: Piperacillin-Tazo 3.375 Gm Inj 3.375 GM in Dextrose 5% Minibag Plus 50 ML IV SCH ×3 (00:48→16:29)
--- NOTE | 2017-05-12 02:45 | NUR ---
Pt had large, soft bowel movement at 0230, at which point he agreed to initiate tube feeding. Pt refused initial rate of 25 ml/hr, stating "at home I get 48mL in a day, total. There's no way I'll be able to tolerate that." Pt was agreeable to TF at 10/hr with 40 mL flush q4 hours. HOB raised to 45 degrees. Addendum: 05/12/17 at 0607 by ROBERT ROJAS RN At 0600 pt reported abdominal pressure, unable to pinpoint a more specific location. Abd appears less distended than prior assessment. Denies N/V. Requested TF be turned off, stating "I have some issues with it and I just want to talk to the doctors today." Turned off per pt's request, Dr. Hay notified.
[2017-05-12 04:13] LABS: BASOPHILS % (AUTO) 0 % (0-3); EOSINOPHILS % (AUTO) 0 % (0-5); Mean Corpuscular Hemoglobin 31.7 pg (27.0-35.0); Mean Corpuscular Volume 97.9 fL (81-100); NEUTROPHILS % (AUTO) 88.1 % (40-74); Platelet Count 192 bil/L (150-400)
[2017-05-12] MEDS: Cholestyramine Resin Powder 4 Gm Packet PO SCH ×4 (06:24→20:37)
--- NOTE | 2017-05-12 07:02 | PCM.PNMED ---
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 Patient was seen and examined by me today. He notes that this morning his breathing feels somewhat better. He says that he refused tube feeding because he was being given a feeds at a rate much higher than he is accustomed to. His blood pressure this morning has been elevated with systolic in the 170s with sinus tachycardia. On ROS, patient denies headaches, chest pain, nausea, vomiting and abdominal pain. Overnight, per telemetry, patient's HR was noted in upper 40's and patient had 2nd degree HB which lasted for 12 seconds. Patient was asymptomatic and converted back to sinus tach 90's. Exam Vital Signs Vital Sign - Last Date Time Temp Pulse Resp B/P Pulse Ox O2 Delivery O2 Flow Rate FiO2 05/12/17 04:22 36.7 118 20 163/74 94 OxyMask 2.00 05/10/17 08:15 40 Intake and Output 05/11/17 05/11/17 05/12/17 Cumulative From/Thru 15:00 23:00 07:00 05/09/17 18:45 - 05/12/17 06:22 Intake Total 1156 ml 1471 ml 6690 ml Output Total 975 ml 1050 ml 4700 ml Balance 181 ml 421 ml 1990 ml Intake Oral 0 ml 0 ml 0 ml IV Total 1156 ml 1471 ml 6690 ml Output Urine Total 975 ml 1050 ml 4700 ml Exam General: Patient is ill-appearing, lying on bed, AAOX3, mild acute distress, cooperative. HEENT: head normocephalic and atraumatic, PERRLA, EOMI, no scleral icterus, noninjected conjunctiva Neck: neck supple, non-tender, no lymphadenopathy, trachea midline, no JVD CV: tachycardic, regular rhythm, s1 and s2 heard, + systolic murmur heard best on LUSB, radial pulses 2+ and equal bilaterally, no rubs murmurs or gallops, no edema Lungs: Patient on 2.5 L O2 via oxy-mask, course breath sounds bilaterally with diffuse wheezing, mild increased work of breathing Abdomen: normoactive bowel sounds on 4Q, soft, non-distended, non-tender to palpation, no organomegally, J-tube in place Skin: warm and dry : elizalde catheter in place Musculoskeletal: UE and LE strength equal but reduced bilaterally, full ROM bilaterally Neuro: Grossly neurologically intact, cranial nerves II through XII intact, no dyskinesia, dysmetria, or dysdiadochokinesia noted, sensation intact Psych: Normal mood and affect IVs and Medications Medications Reviewed: Medications were reviewed in detail Lab and Diagnostics Result Diagram: 05/12/17 04005/12/17 0400 Microbiology Microbiology 05/09/17 Blood Culture - Preliminary, Resulted NO GROWTH AFTER 24 HOURS 05/11/17 Adenovirus DNA (PCR) - Final, Complete Not Detected 05/11/17 Coronavirus 229E PCR - Final, Complete Not Detected 05/11/17 Coronavirus HKU1 PCR - Final, Complete Not Detected 05/11/17 Coronavirus NL63 PCR - Final, Complete Not Detected 05/11/17 Coronavirus OC43 PCR - Final, Complete Not Detected 05/11/17 Influenza Type A (PCR) - Final, Complete Not Detected 05/11/17 Influenza Type B (PCR) - Final, Complete Not Detected 05/11/17 Human Metapneumovirus (PCR) (KAYA) - Final, Complete Not Detected 05/11/17 Rhinovirus (PCR)(KAYA) - Final, Complete Not Detected 05/11/17 Parainfluenza Virus Type 1 (PCR) - Final, Complete Not Detected 05/11/17 Parainfluenza Virus Type 2 (PCR) - Final, Complete Not Detected 05/11/17 Parainfluenza Virus Type 3 (PCR) - Final, Complete Not Detected 05/11/17 Parainfluenza Virus Type 4 (NAAT) - Final, Complete Not Detected 05/11/17 Respiratory Syncytial Virus (PCR)RI - Final, Complete Not Detected 05/11/17 Chlamydia pneumoniae (PCR) - Final, Complete Not Detected 05/11/17 Mycoplasma pneumoniae DNA Detection - Final, Complete 05/10/17 Streptococcus pneumoniae Ag Screen - Final, Complete X-Rays, CTs and MRIs PROCEDURE: CT ABDOMEN WITHOUT CONTRAST ([id number]) IMPRESSION: 1. Tip of gastrostomy tube is within the gastric lumen. 2. Resolved bilateral hydronephrosis. 3. Left greater than right bibasilar pneumonia with small parapneumonic effusions. 4. Small hiatal hernia. Dictated by: Mayda Thomson M.D. on 05/11/2017 at 13:43 X-RAY CHEST ONE VIEW, PORTABLE IMPRESSION: Very minimal right basilar streaky opacity. This could represent developing pneumonia or atelectasis. Dictated by: Dorene Zuniga M.D. on 05/09/2017 CT ANGIO CHEST PULMONARY EMBOLISM IMPRESSION: 1. Suboptimal evaluation of the pulmonary arteries beyond the main branches. No main pulmonary embolus. 2. Despite motion artifact, there appears to be presence of multiple small bibasilar and middle lobe areas of patchy opacities. Overall appearance is suggestive of infection/inflammatory change. Dictated by: Dorene Zuniga M.D. on 05/09/2017 Cardiac Echo Impressions Echocardiogram Report Name: ALEX HWANG LStudy Date: 05/11/2017 Height: 72 in Hospital Exam Location: [facility] Weight: 154 lb Gender: Male BSA: 1.9 m2 : 1925 Age: 89 yrs BP: 152/ 58 mmHg Reason For Study: SOB/ELEV TROP Ordering Physician: HOSPITALIST [facility] Performed By: Shelbi Bocanegra [facility] Phys[facility] Interpretation Summary Only limited views were obtained 1. Normal left ventricular size with mildly increased wall thickness and normal systolic function with an estimated EF of 60-65%. Wall motion abnormalities are as noted below. 2. Grossly normal right ventricular size and systolic function 3. Valves were not optimally visualized When comparing the limited views obtained on this study to the previous study, the findings appear similar Procedure: The study quality was technically limited. The study quality was technically adequate. Comparison is made with the echocardiogram of 03/24/17. The patient was in sinus tachycardia with heart rates between 93 and 115 bpm during the exam. Left Ventricle: The left ventricle is normal in size. There is mild concentric left ventricular hypertrophy. The ejection fraction is estimated to be 60-65%. There is basal inferior wall akinesis. There is basal inferoseptal wall akinesis. Upon review of the previous images, these findings were present on the previous echo. Right Ventricle: Not optimally visualized . The size appears grossly normal. The right ventricular systolic function is normal. Aortic Valve: The aortic valve is trileaflet. The aortic valve is moderately calcified. Pericardium/ Pleura There is no pericardial effusion. There is no pleural effusion. Additional Diagnostics DateTimeAnalyzed 19:43:00 -_ pH ____7.388 - 7.350 7.450 pCO2 ___42.1__ -mmHg 35.0 45.0 pO2 191 -mmHg 80.0 100 HCO3- ___24.8__ -mmol/L 22.0 26.0 ABE ____0.3__ -mmol/L -2.0 2.0 tHb ____9.8__ -g/dL 12.0 18.0 O2Hb ___97.5__ -% COHb ____0.7__ -% 1.5 MetHb ____1.1__ -% 0.4 1.5 sO2 ___99.3__ -% 95.0 FIO2 ___60.0__ -% Set_RR ___28.0__ -b/min Vt __650.0__ -L Drawn By AF - Date/Time Notified____ 19:51:00 -_ Spontaneous_RR ___16.0__ -b/min Oxygen Device 1 ____BIPAP - Notified By AF - Notified Whom ___DR. O'DORENE - B 760 -mmHg tO2 ___13.8__ -Vol% Sanjiv test _Positive - DateTimeAnalyzed 09:44:16 -_ pH ____7.427 - 7.350 7.450 pCO2 ___40.0__ -mmHg 35.0 45.0 pO2 ___84.5__ -mmHg 80.0 100 HCO3- ___26.3__ -mmol/L 22.0 26.0 ABE ____1.8__ -mmol/L -2.0 2.0 tHb ____8.5__ -g/dL 12.0 18.0 O2Hb ___96.8__ -% COHb ____1.9__ -% 1.5 MetHb ____0.0__ -% 0.4 1.5 sO2 ___98.5__ -% 95.0 FIO2 ___70.0__ -% Drawn By NB - Date/Time Notified____ 09:54:00 -_ Oxygen Device 1 oxy mask @ 9 liters -_ Notified By NB - K+ ____4.3__ -mmol/L 3.5 5.0 tO2 ___11.8__ -Vol% Sanjiv test N/A - Assessment & Plan Alex Hwang is an 89 year old male with unspecified cardiomyopathy, 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 Hospital day 4 Acute Hypoxic Respiratory Failure. Present on admission. Ongoing Differential diagnosis includes Pulmonary embolism (ruled out with CT chest) patient also has history of Cardiomyopathy but does not have clinical evidence of fluid overload - continue BIPAP for non invasive ventilation - Patient express wish for short term intubation if needed - ABGs have normalized - Continue to monitor Aspiration pneumonia with Healthcare associated pneumonia. 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 Aspiration suspected despite patient being NPO, question if the feeding tube is in position and not causing aspiration. With recent TURP procedure patient could have aspirated during the procedure - continue Levaquin and Zosyn for empiric antibiotics. Consider discontinuing Levaquin if this is true aspiration pneumonia - MRSA screen negative. Discontinued Vancomycin -Viral PCR, strep pneumo urine and urine legionella were negative - de escalate antibiotics based on cultures, still pending - Pro calcitonin today decreased to 0.26 -WBC 12 today - nothing by mouth - non contrast CT of the abdomen has been ordered which confirms appropriate position of feeding tube Elevated troponin. Present on admission Likely due to demand ischemia due to pneumonia. Denies any anginal symptoms and EKG showing no ischemic changes - Troponin remains elevated, slight downward trend now - Continue monitor on telemetry Hypertension, Chronic Presumed stable at the halfway - continue Amlodipine 5 mg daily -IV labetalol was given as patient has been hypertensive with systolic in the 170s today Esophageal stricture status post dilation, and status post PEG tube - continue Jevity 1.2 Elvis 0.06 gram-1.2 kcal/mL oral liquid - Nutrition has been consulted to monitor tube feeding BPH with chronic painful urination chronic - continue Tamsulosin 0.4 mg daily, Phenazopyridine 100 mg tid PRN - continue Finasteride 5 mg daily and Oxybutynin 5 mg bid Chronic pain syndrome 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 . Pain Evaluation: Adequate Pain Control GI Prophylaxis: Other (Patient has J tube) VTE Prophylaxis: Sub-Q Heparin (Unfractionated) VTE Mechanical Devices: Intermittant Pneumatic CD Resuscitation Status: Limited Interventions Time spent 35 minutes Attending Statement I have seen and evaluated the patient at bedside in addition to directly supervising care provided by resident physician Dr Tejada on 05/12/2017. I agree with above documentation. Mary Anne Tejada DO May 12, 2017 07:02 Alejandro Max DO May 13, 2017 08:09
[2017-05-12] MEDS: Triamcinolone 0.1% 30 Gm Cream TOPICAL SCH ×2 (08:30→20:30)
[2017-05-12] MEDS: Pantoprazole 4 mg/mL 10 mL Inj IVPUSH SCH ×2 (08:40→16:29)
[2017-05-12] MEDS: Heparin 5,000 Unit/mL Inj SUBQ SCH ×3 (08:40→23:50)
[2017-05-12] MEDS: Vitamins C,E, Omega-3, Mineral Tablet PO SCH (08:41)
[2017-05-12] MEDS: Vancomycin Dose per Pharmacist XX SCH (08:41)
[2017-05-12] MEDS ORDERED: Labetalol 5 mg/mL 20 mL Inj IVPUSH ONE ×2 (09:30→20:30)
[2017-05-12] MEDS: 0.9% Sodium Chloride 1,000 ML IV SCH ×2 (10:25→20:16)
--- NOTE | 2017-05-12 11:30 | NUR ---
[facility] Follow Up : Called and spoke with Faviola at [facility] and she is short staffed today and is not able to come out today but tomorrow most likely. She will be calling me to let me know whether they can come today versus tomorrow. Baseline patient is in wheelchair and uses slide board for transfer. Updated RESIDENTIAL NURSE
--- NOTE | 2017-05-12 13:45 | NUR ---
NUTRITION FOLLOW UP: Assess: 89 YO male, admitted for aspiration pneumonitis. Pt has severe esophageal stricture, PEG tube placed in 2014. Normally self-administers 6 cans for 5 feedings (48 oz) Jevity 1.2 via gravity feeds. TF started at 10 ml/hr X 2 hours but he was unable to tolerate this. Pt states since getting the TF his stomach is bloated again and he could feel the TF coming back up. Pt under the impression that fluid ounces = mL. Attempted multiple times to explain that in 8 fl oz of Jevity 1.2 is actually 237 mL and that a continuous rate of 10 ml/hr is not very much. Pt asked why he had to have continuous feeds and I explained that is what he asked for yesterday. Pt open to trying his TF from home but does not want to restart the Jevity 1.5 at this time. Per pt's request, RD called pt's son, Luis Felipe, at [phone] and asked him to bring in a case of Jevity 1.2. Spoke with pt's Son and he is willing to bring in the pt's home TF later tonight. PMHx: Esophageal stricture s/p dilation, PEG tube placement, malignant HTN, aortic stenosis, sporadic inclusion body myositis, anemia, HLD. LABS: Reviewed. K+ 3.2, Cr 0.50, Glu 103, Ca 8.2, Alb 2.8 MEDICATIONS: Reviewed. IV fluids. DIET: NPO. NUTRITION SUPPORT (HOME): Jevity 1.2 x 6 cans divided into 5 feedings (1422 mL/day) provides 1710 kcal, 79 g pro, 1146 mL free h20 (Approx. 1422 ml total TF/day). GI: Per pt, he had a BM yesterday. ANTHROPOMETRICS: Current Wt: 70.5, BMI 21.1 kg/m2, Admit wt: 73.3 kg. ESTIMATED NEEDS: Calories: 9897-3603 kcal (25-30 kcal/kg BW) Protein: 70-105 g (1.0-1.5 g/kg BW) Fluids: 7595-5863 mL (1 ml/kcal) NUTRITION DIAGNOSIS: 1) Inadequate oral intake related to esophageal stricture as evidenced by chronic PEG with chronic TF.---PERSISTS. INTERVENTION: 1) Spoke with pt and pt's son over the phone. Pt's son will bring in home TF of Jevity 1.2 as we do not have Jevity 1.2 on our TF formulary. Will plan on starting TF of Jevity 1.2 tomorrow per pt's request. Pt was unable to specify how he would like to be fed so RD will check in with him tomorrow to determine a plan. 2) If pt desires TF to be started prior to his home TF arriving, recommend Jevity 1.5 starting at 10 ml/hr, once tolerance established, advance 10 ml q 4 hr to goal rate of 50 ml/hr. Flush dose 40 ml q 4 hr. At goal TF will provide 1725 kcal, 73 g protein, (approx. 1,100 ml total); meeting 99% calorie, 100% protein needs. Recommend adjusting flush doses if pt no longer needs IV fluids. 3) Attempted to explain different between fluid ounces and ml of TF, 8 fl oz of Jevity 1.2 = 237 ml. Pt was unable to understand. MONITOR/EVALUATE: TF start, TF tolerance/advance, labs, GI/nutrition status. Follow per high nutrition risk guidelines. Addendum: 05/12/17 at [address] Received a call from nursing that pt's son has brought in Jevity 1.2 and pt would like to start TF. Recommend gravity feeds of Jevity 1.2 (pt's formula brought in from home) for a total of 6 cans (48 oz) per day spread out through 6 feedings (700, 1000, 1300, 1600, 1900, 2200) for a total of 1422 ml providing 1710 kcal, 79 g protein, 1146 free H2O; meeting 98% calorie, 100% protein needs. Timing of feedings discussed with pt's RN. Signed orders placed in chart.
--- NOTE | 2017-05-12 15:40 | NUR ---
Social Work: Continued Discharge Planning D: Pt discussed in multidisciplinary rounds; the patient is not yet medically stable for discharge at this time. The patient is anticipated to require at least 1-2 more days of hospitalization. Pt's mobility has not yet been assessed. Patient is w/c bound at baseline however it is undetermined how patient transfers and his level of independence. Depending on PLOF, patient will either need a bedside assessment from [facility] versus a SNF for ongoing strengthening and improvement back to baseline mobility. Per Exchange Operator, she spoke with childcare administrator at [facility] who states that they will attempt to come see the patient today or tomorrow to complete a bedside assessment. The patient normally transfers to a w/c using a slide board. A: Pt who is a resident at [facility]. P: Evolving; TITLE EXAMINER to follow up with [facility] staff post-bedside assessment to determine appropriate discharge disposition. TITLE EXAMINER to continue to follow to assess for unmet needs/barriers. CHUCKY Badillo
[2017-05-12] MEDS ORDERED: Influenza (Adult) Vaccine 0.5 mL Syringe IM ONE (17:50)
--- NOTE | 2017-05-12 18:07 | NUR ---
Hypertension Patient hypertensive SBP in the r26-155s. Labetalol BID ordered and started. Patient SBP down to 150s-160s. MD aware. Will give evening dose as ordered.
[2017-05-12] MEDS: levoFLOXacin Inj 750 MG in IV Premix 1 EACH IV SCH ×2 (20:17→21:54)
[2017-05-13] VITALS (10 sets, daily range): BP systolic 154–178; BP diastolic 54–72; PULSE 80–102; RESP 20–29; O2SAT 94–97
[2017-05-13] MEDS ORDERED: Labetalol 5 mg/mL 20 mL Inj IVPUSH ONE ×2 (00:05→15:00)
[2017-05-13] MEDS: Piperacillin-Tazo 3.375 Gm Inj 3.375 GM in Dextrose 5% Minibag Plus 50 ML IV SCH ×4 (00:18→23:51)
[2017-05-13 03:05] LABS: BASOPHILS % (AUTO) 0 % (0-3); EOSINOPHILS % (AUTO) 0 % (0-5); MONOCYTES % (AUTO) 8.5 % (4-12); Mean Corpuscular Hemoglobin 31.6 pg (27.0-35.0); Mean Corpuscular Volume 95.6 fL (81-100); Platelet Count 203 bil/L (150-400)
[2017-05-13] MEDS: 0.9% Sodium Chloride 1,000 ML IV SCH (04:18)
[2017-05-13] MEDS ORDERED: Potassium Chloride Inj 30 MEQ in Dextrose 5% 500 ML IV ONE (04:40)
--- NOTE | 2017-05-13 05:07 | NUR ---
Htn/shift summary Evening dose of IVP labetalol given, pt remained systolic 170's. Second dose of IVP labetalol given with same result. Slow IVP vasotec given, SBP's now 160's. K 2.9 this AM, 30 mEq K infusing at this time. Persistent cough this shift, productive of thick white sputum. Maintains 95% on 2L oxymask. Several small stools.
[2017-05-13] MEDS: Cholestyramine Resin Powder 4 Gm Packet PO SCH ×4 (05:30→20:39)
[2017-05-13] MEDS: Heparin 5,000 Unit/mL Inj SUBQ SCH ×3 (08:21→23:50)
[2017-05-13] MEDS: Vitamins C,E, Omega-3, Mineral Tablet PO SCH (08:21)
[2017-05-13] MEDS: Triamcinolone 0.1% 30 Gm Cream TOPICAL SCH ×2 (08:21→20:30)
[2017-05-13] MEDS: Pantoprazole 4 mg/mL 10 mL Inj IVPUSH SCH ×2 (08:21→15:49)
--- NOTE | 2017-05-13 14:15 | NUR ---
NUTRITION FOLLOW UP: Assess: 89 YO male, admitted for aspiration pneumonitis. Pt has severe esophageal stricture, PEG tube placed in 2014. Normally self-administers 6 cans for 5 feedings (48 oz) Jevity 1.2 via gravity feeds. TF started at 10 ml/hr X 2 hours but he was unable to tolerate this. Pt states since getting the TF his stomach is bloated again and he could feel the TF coming back up. Pt's son was able to bring in his home TF formula and pt has been tolerating gravity bolus TF of Jevity 1.2 well. Pt currently has IVF running, MD requested that fluid flushes be increased to meet pts fluid needs. Pt is agreeable to this. He stated that he typically does ~50cc before and after each bolus. RN is aware of increase in fluid flushes and that IVF can likely be stopped. PMHx: Esophageal stricture s/p dilation, PEG tube placement, malignant HTN, aortic stenosis, sporadic inclusion body myositis, anemia, HLD. LABS: Reviewed. K 2.9, Cl 112, inspector tester sorter .49, Glu 205, Ca 7.7, Alb 2.8 MEDICATIONS: Reviewed. NS @ 100. DIET: NPO. NUTRITION SUPPORT (HOME): Jevity 1.2 x 6 cans divided into 5 feedings (1422 mL/day) provides 1710 kcal, 79 g pro, 1146 mL free h20 (Approx. 1422 ml total TF/day). GI: BMx3 05/12 ANTHROPOMETRICS: Current Wt: 71.9kg, BMI 21.5 kg/m2, Admit wt: 73.3 kg. ESTIMATED NEEDS: Calories: 3024-5029 kcal (25-30 kcal/kg BW) Protein: 70-105 g (1.0-1.5 g/kg BW) Fluids: 6154-8456 mL (1 ml/kcal) NUTRITION DIAGNOSIS: 1) Inadequate oral intake related to esophageal stricture as evidenced by chronic PEG with chronic TF.---PERSISTS. INTERVENTION: 1) Pt's son has brought in Jevity 1.2. Recommend gravity feeds of Jevity 1.2 (pt's formula brought in from home) for a total of 6 cans (48 oz) per day spread out through 6 feedings (700, 1000, 1300, 1600, 1900, 2200) for a total of 1422 ml providing 1710 kcal, 79 g protein, 1146 free H2O; meeting 98% calorie, 100% protein needs. Timing of feedings discussed with pt's RN. Signed orders placed in chart. 2) Will increase pt's fluid flushes before and after each bolus. Recommend 55ml before and after each TF bolus to provide 660ml. TF+fluid flush provides 1807ml H20/day. MONITOR/EVALUATE: TF tolerance/advance, fluid status, wt, labs, GI/nutrition status. Follow per high nutrition risk guidelines.
--- NOTE | 2017-05-13 14:38 | PCM.PNMED ---
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 Patient was seen and examined by me today. He states that he does not feel well overall. He notes that he feels weak and has been coughing all night. Because of this, he has not had adequate sleep. He reports shortness of breath that is slightly improved from yesterday. He notes that he is constantly suctioning as he continues to produce a lot of sputum. He denies any complications from his Jevity feeds. On review of systems he denies headaches, chest pain, nausea, vomiting, abdominal pain and dysuria. He continues to have Elizalde catheter with adequate urine output. Overnight, per nursing, Evening dose of IVP labetalol given, pt remained systolic 170's. Second dose of IVP labetalol given with same result. Slow IVP vasotec given by night resident, SBP's now 160's. Potassium this morning was 2.9 and it was replaced with 30 mEq of IV potassium. No other acute events overnight. Exam Vital Signs Vital Sign - Last Date Time Temp Pulse Resp B/P Pulse Ox O2 Delivery O2 Flow Rate FiO2 05/13/17 04:31 87 170/66 05/13/17 03:14 37.3 05/13/17 01:01 24 05/13/17 00:22 97 OxyMask 2.00 05/10/17 08:15 40 Intake and Output 05/12/17 05/12/17 05/13/17 Cumulative From/Thru 15:00 23:00 07:00 05/09/17 18:45 - 05/13/17 05:09 Intake Total 1137 ml 1147 ml 8974 ml Output Total 1000 ml 500 ml 6200 ml Balance 137 ml 647 ml 2774 ml Intake Oral 0 ml 0 ml 0 ml IV Total 1137 ml 1147 ml 8974 ml Output Urine Total 1000 ml 500 ml 6200 ml # Bowel Movements 3 3 Exam General: Patient is ill-appearing, lying on bed, AAOX3, mild acute distress, cooperative. HEENT: head normocephalic and atraumatic, PERRLA, EOMI, no scleral icterus, noninjected conjunctiva Neck: neck supple, non-tender, no lymphadenopathy, trachea midline, no JVD CV: tachycardic, regular rhythm, s1 and s2 heard, + systolic murmur heard best on LUSB, radial pulses 2+ and equal bilaterally, no rubs murmurs or gallops, no edema Lungs: Patient on 2.0 L O2 via oxy-mask, course breath sounds bilaterally with diffuse wheezing, mild increased work of breathing, positive rhonchi Abdomen: normoactive bowel sounds on 4Q, soft, non-distended, non-tender to palpation, no organomegally, J-tube in place Skin: warm and dry : elizalde catheter in place Musculoskeletal: UE and LE strength equal but reduced bilaterally Neuro: Grossly neurologically intact, cranial nerves II through XII intact, no dyskinesia, dysmetria, or dysdiadochokinesia noted, sensation intact Psych: Normal mood and affect IVs and Medications Medications Reviewed: Medications were reviewed in detail Lab and Diagnostics Laboratory Tests Test 05/13/17 02:50 White Blood Count 9.3th/mm3 (3.8-10.1) Red Blood Count 2.72mil/mm3 (4.40-5.80) Hemoglobin 8.6g/dL (13.8-17.2) Hematocrit 26.0% (41.0-50.0) Mean Corpuscular Volume 95.6fL (81-100) Mean Corpuscular Hemoglobin 31.6pg (27.0-35.0) Mean Corpuscular Hemoglobin Concent 33.1% (32.0-37.0) Red Cell Distribution Width 12.8% (12.3-15.4) Platelet Count 203bil/L (150-400) Neutrophils (%) (Auto) 83.0% (40-74) Lymphocytes (%) (Auto) 8.2% (14-46) Monocytes (%) (Auto) 8.5% (4-12) Eosinophils (%) (Auto) 0% (0-5) Basophils (%) (Auto) 0% (0-3) Sodium Level 144mEq/L (134-144) Potassium Level 2.9mEq/L (3.5-5.2) Chloride Level 112mEq/L (97-108) Carbon Dioxide Level 21mmol/L (18-29) Blood Urea Nitrogen 22mg/dL (8-27) Creatinine 0.49mg/dL (0.76-1.27) Estimat Glomerular Filtration Rate 170mL/min (>59) Glucose Level 205mg/dL (60-99) Lactic Acid Level 1.3mmol/L (0.4-2.0) Calcium Level 7.7mg/dL (8.5-10.1) Total Bilirubin 0.2mg/dL (0.0-1.2) Aspartate Amino Transf (AST/SGOT) 24U/L (0-50) Alanine Aminotransferase (ALT/SGPT) 15U/L (0-44) Alkaline Phosphatase 51U/L (25-160) Total Protein 5.0g/dL (6.4-8.4) Albumin 2.8g/dL (3.4-5.0) Procalcitonin 0.15ng/mL (0.00-0.08) Microbiology 05/09/17 Blood Culture - Preliminary, Resulted No growth at 2 days; culture examined... 05/11/17 MRSA (PCR) - Final, Complete 05/10/17 Streptococcus pneumoniae Ag Screen - Final, Complete Result Diagram: 05/13/17 0250 05/13/17 0250 Microbiology Microbiology 05/09/17 Blood Culture - Preliminary, Resulted NO GROWTH AFTER 24 HOURS 05/11/17 Adenovirus DNA (PCR) - Final, Complete Not Detected 05/11/17 Coronavirus 229E PCR - Final, Complete Not Detected 05/11/17 Coronavirus HKU1 PCR - Final, Complete Not Detected 05/11/17 Coronavirus NL63 PCR - Final, Complete Not Detected 05/11/17 Coronavirus OC43 PCR - Final, Complete Not Detected 05/11/17 Influenza Type A (PCR) - Final, Complete Not Detected 05/11/17 Influenza Type B (PCR) - Final, Complete Not Detected 05/11/17 Human Metapneumovirus (PCR) (KAYA) - Final, Complete Not Detected 05/11/17 Rhinovirus (PCR)(KAYA) - Final, Complete Not Detected 05/11/17 Parainfluenza Virus Type 1 (PCR) - Final, Complete Not Detected 05/11/17 Parainfluenza Virus Type 2 (PCR) - Final, Complete Not Detected 05/11/17 Parainfluenza Virus Type 3 (PCR) - Final, Complete Not Detected 05/11/17 Parainfluenza Virus Type 4 (NAAT) - Final, Complete Not Detected 05/11/17 Respiratory Syncytial Virus (PCR)MA - Final, Complete Not Detected 05/11/17 Chlamydia pneumoniae (PCR) - Final, Complete Not Detected 05/11/17 Mycoplasma pneumoniae DNA Detection - Final, Complete 05/10/17 Streptococcus pneumoniae Ag Screen - Final, Complete X-Rays, CTs and MRIs PROCEDURE: CT ABDOMEN WITHOUT CONTRAST ([id number]) IMPRESSION: 1. Tip of gastrostomy tube is within the gastric lumen. 2. Resolved bilateral hydronephrosis. 3. Left greater than right bibasilar pneumonia with small parapneumonic effusions. 4. Small hiatal hernia. Dictated by: Mayda Thomson M.D. on 05/11/2017 at 13:43 X-RAY CHEST ONE VIEW, PORTABLE IMPRESSION: Very minimal right basilar streaky opacity. This could represent developing pneumonia or atelectasis. Dictated by: Dorene Zuniga M.D. on 05/09/2017 CT ANGIO CHEST PULMONARY EMBOLISM IMPRESSION: 1. Suboptimal evaluation of the pulmonary arteries beyond the main branches. No main pulmonary embolus. 2. Despite motion artifact, there appears to be presence of multiple small bibasilar and middle lobe areas of patchy opacities. Overall appearance is suggestive of infection/inflammatory change. Dictated by: Dorene Zuniga M.D. on 05/09/2017 Cardiac Echo Impressions Echocardiogram Report Name: ALEX HWANG LStudy Date: 05/11/2017 Height: 72 in Hospital Exam Location: [facility] Weight: 154 lb Gender: Male BSA: 1.9 m2 : 1925 Age: 89 yrs BP: 152/ 58 mmHg Reason For Study: SOB/ELEV TROP Ordering Physician: HOSPITALIST [facility] Performed By: Shelbi Bocanegra Referring Physician: Tyron Vivar Interpretation Summary Only limited views were obtained 1. Normal left ventricular size with mildly increased wall thickness and normal systolic function with an estimated EF of 60-65%. Wall motion abnormalities are as noted below. 2. Grossly normal right ventricular size and systolic function 3. Valves were not optimally visualized When comparing the limited views obtained on this study to the previous study, the findings appear similar Procedure: The study quality was technically limited. The study quality was technically adequate. Comparison is made with the echocardiogram of 03/24/17. The patient was in sinus tachycardia with heart rates between 93 and 115 bpm during the exam. Left Ventricle: The left ventricle is normal in size. There is mild concentric left ventricular hypertrophy. The ejection fraction is estimated to be 60-65%. There is basal inferior wall akinesis. There is basal inferoseptal wall akinesis. Upon review of the previous images, these findings were present on the previous echo. Right Ventricle: Not optimally visualized . The size appears grossly normal. The right ventricular systolic function is normal. Aortic Valve: The aortic valve is trileaflet. The aortic valve is moderately calcified. Pericardium/ Pleura There is no pericardial effusion. There is no pleural effusion. Additional Diagnostics DateTimeAnalyzed 19:43:00 -_ pH ____7.388 - 7.350 7.450 pCO2 ___42.1__ -mmHg 35.0 45.0 pO2 191 -mmHg 80.0 100 HCO3- ___24.8__ -mmol/L 22.0 26.0 ABE ____0.3__ -mmol/L -2.0 2.0 tHb ____9.8__ -g/dL 12.0 18.0 O2Hb ___97.5__ -% COHb ____0.7__ -% 1.5 MetHb ____1.1__ -% 0.4 1.5 sO2 ___99.3__ -% 95.0 FIO2 ___60.0__ -% Set_RR ___28.0__ -b/min Vt __650.0__ -L Drawn By AF - Date/Time Notified____ 19:51:00 -_ Spontaneous_RR ___16.0__ -b/min Oxygen Device 1 ____BIPAP - Notified By AF - Notified Whom ___DR. O'DORENE - B 760 -mmHg tO2 ___13.8__ -Vol% Sanjiv test _Positive - DateTimeAnalyzed 09:44:16 -_ pH ____7.427 - 7.350 7.450 pCO2 ___40.0__ -mmHg 35.0 45.0 pO2 ___84.5__ -mmHg 80.0 100 HCO3- ___26.3__ -mmol/L 22.0 26.0 ABE ____1.8__ -mmol/L -2.0 2.0 tHb ____8.5__ -g/dL 12.0 18.0 O2Hb ___96.8__ -% COHb ____1.9__ -% 1.5 MetHb ____0.0__ -% 0.4 1.5 sO2 ___98.5__ -% 95.0 FIO2 ___70.0__ -% Drawn By NB - Date/Time Notified____ 09:54:00 -_ Oxygen Device 1 oxy mask @ 9 liters -_ Notified By NB - K+ ____4.3__ -mmol/L 3.5 5.0 tO2 ___11.8__ -Vol% Sanjiv test N/A - Assessment & Plan Alex Hwang is an 89 year old male with unspecified cardiomyopathy, 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 Hospital day 5 Acute Hypoxic Respiratory Failure. Present on admission. Ongoing Differential diagnosis includes pneumonia, Pulmonary embolism (ruled out with CT chest) patient also has history of Cardiomyopathy but does not have clinical evidence of fluid overload - continue BIPAP when needed for non invasive ventilation - Patient express wish for short term intubation if needed - ABGs have normalized - Continue to monitor Aspiration pneumonia with Healthcare associated pneumonia. Present on admission risk factors for MRSA and Pseudomonal infection with patient being a skilled nursing [facility] resident. Aspiration suspected despite patient being NPO, question if the feeding tube is in position and not causing aspiration. With recent TURP procedure patient could have aspirated during the procedure - continue Zosyn for likely aspiration pneumonia. Discontinued Levaquin on 05/13 - MRSA screen negative. Discontinued Vancomycin -Viral PCR, strep pneumo urine and urine legionella were negative - de escalate antibiotics based on cultures, still pending and have been negative thus far - Pro calcitonin today decreased to 0.15 -WBC normalized to 9.3 - nothing by mouth - non contrast CT of the abdomen has been ordered which confirms appropriate position of feeding tube Hypokalemia,acute -Patient's potassium on 05/13/17 -Replete with IV potassium as needed -Recheck BMP Elevated troponin. Present on admission Likely due to demand ischemia due to pneumonia. Denies any anginal symptoms and EKG showing no ischemic changes - Troponin remains elevated, slight downward trend now - Continue monitor on telemetry Hypertension, Chronic Presumed stable at the retirement - continue Amlodipine 5 mg daily -IV labetalol was given as patient has been hypertensive with systolic in the 170s today Esophageal stricture status post dilation, and status post J tube - continue Jevity 1.2 Elvis 0.06 gram-1.2 kcal/mL oral liquid - Nutrition has been consulted to monitor tube feeding -Discontinued IV fluids as patient is able to tolerate fluids true J tude BPH with chronic painful urination chronic - continue Tamsulosin 0.4 mg daily, Phenazopyridine 100 mg tid PRN - continue Finasteride 5 mg daily and Oxybutynin 5 mg bid -Patient underwent elective TURP on 05/08 with urologist, Dr. Cordova -Per recommendations by Dr. Corodva, we will leave elizalde catheter in place until discharge. 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 . Pain Evaluation: Adequate Pain Control GI Prophylaxis: Other (Patient has J tube) VTE Prophylaxis: Sub-Q Heparin (Unfractionated) VTE Mechanical Devices: Intermittant Pneumatic CD Resuscitation Status: Limited Interventions Time spent 35 minutes Attending Statement I have seen and evaluated patient at bedside in addition to directly supervising care provided by resident physician Dr. Tejada on 05/13/2017. I agree with above documentation. Mary Anne Tejada DO May 13, 2017 07:26 Alejandro Max DO May 13, 2017 21:40
--- NOTE | 2017-05-13 15:17 | PCM.PNSURG ---
Subjective Date of Service: May 13, 2017 Date of Service: May 13, 2017 Visit Information: Reason for Visit Aspiration Pneumonitis Hypoxia Surgery/Surgery Date Post-Op Day # Date of Admission: May 09, 2017 at 21:31 Hospital Day # Objective Vital Sign- Last 8 Hours Date Time Temp Pulse Resp B/P Pulse Ox O2 Delivery O2 Flow Rate FiO2 05/13/17 12:23 37.5 101 29 175/65 94 Nasal Cannula 1.00 05/13/17 10:03 80 05/13/17 08:15 Supplement Oxygen 05/13/17 08:10 37.0 102 22 162/65 95 OxyMask 2.00 Intake and Output- Last 8 Hour 05/13/17 Cumulative From/Thru 07:00 05/09/17 18:45 - 05/13/17 05:09 Intake Total 1147 ml 8974 ml Output Total 500 ml 6200 ml Balance 647 ml 2774 ml Intake Oral 0 ml 0 ml IV Total 1147 ml 8974 ml Output Urine Total 500 ml 6200 ml # Bowel Movements 3 3 Result Diagram: 05/13/17 0250 05/13/17 0250 Assessment & Plan Plan s/p 05/08 s/p bipolar TURP with h/o urinary retention cleared same day by anesthesia to return to his Alf Re-admitted with pulmonary issues next day His urine is very clear. Were he not ill we could proceed to void trial but have discussed with him it makes sense to keep the catheter until he is on his feet and can have a proper trial of void. His catheter is larger 24fr - offered to change this to smaller if he wished, he would like to keep what he has. He has had elizalde for some time so there is no particular martínez. he may (or may not) have some episodic pink/red urine with more movement post procedure this would be normal Once he is discharged, we can make him a followup appointment in clinic for void trial He can call office if needed [phone] VTE Prophylaxis: Sub-Q Heparin (Unfractionated) Resuscitation Status: Limited Interventions Lisandra Cordova MD May 13, 2017 15:17
--- NOTE | 2017-05-13 16:21 | NUR ---
Social Work: Continued Discharge Planning Data & Assessment: EMR reviewed. Patient is on day 2 of hospitalization for CHF and symptomatic bradycardia per H&P. SW met with patient to discuss discharge planning. Prior to visit, SW spoke with MD to obtain confirmation that a SNF order would be placed. Confirmation was obtained. During visit, SW provided patient with a SNF List for patient to review. Patient informed SW that he has been to [facility] two times in the past and would like to be admitted there upon discharge. SW informed patient that [facility] would be contacted to confirm bed availability. SW informed patient that he would be updated once a bed offer has been confirmed. [facility] is in agreement. SW will continue to follow for additional needs. Plan: Patient will likely discharge to a SNF when medically stable for discharge. Patient has selected [facility]. SW is verifying bed availability and will update patient once a bed offer has been confirmed. SW will continue to follow. CHUCKY Cullen
--- NOTE | 2017-05-13 18:07 | NUR ---
Labored Breathing/HTN/Elizalde(STEPDOWN NURSE)/Tube Feeding No reports of chest pain/pressure/discomfort. Tele SR/tach 80s-low 100s. Hx of hyptertension, 160-178s systolic throughout shift. 20mg IV Labetolol given x1 per MD orders, brought BP down from 178 to 162 systolic. Reported mild SOB at rest this AM, periods where he states "I feel like I just can't catch my breath" occurred more frequently as the shift progressed. Encouraging deep breathing and coughing, has suction at bedside which he uses independently. Small to moderate amount of creamy white, thick sputum production. Currently on 1L NC with SPO2 at 94%. Abdomen is firm to touch. Bowel small soft BM (incontinent) this shift x3. Patient has pre existing elizalde that is patent and draining yellow urine to gravity. Patient has gravity tube feeds, 8 ounces (1 small carton, brought from home and is at bedside) every 3 hours with 55ml flush of water before and after, so far tolerating well although reports some "burning" if HOB is not at least 45 degrees.
[2017-05-14] VITALS (8 sets, daily range): BP systolic 159–184; BP diastolic 62–103; PULSE 82–117; RESP 24–30; O2SAT 93–96
[2017-05-14 03:46] LABS: BASOPHILS % (AUTO) 0.1 % (0-3); EOSINOPHILS % (AUTO) 0.1 % (0-5); MONOCYTES % (AUTO) 9.7 % (4-12); Mean Corpuscular Hemoglobin 31.4 pg (27.0-35.0); Mean Corpuscular Volume 94.6 fL (81-100); Platelet Count 207 bil/L (150-400)
--- NOTE | 2017-05-14 05:35 | NUR ---
Hypertension / Tele / Low K+ Pt has been Hypertensive tonight with SBPs in the 160-170s. Pt denies headache, dizziness or visual problems, Dr Hay notified and is aware, will continue to monitor BP's. Tele SR-ST with [facility] with HR 80-110s per [employer] Specialist. This AM Potassium level only 3.2, Dr Hay notified awaiting new orders.
[2017-05-14] MEDS ORDERED: Potassium Chloride 20 mEq SR Tablet PO ONE (05:40)
[2017-05-14] MEDS ORDERED: Potassium Chloride Inj 30 MEQ in Dextrose 5% 500 ML IV ONE (05:45)
[2017-05-14] MEDS: Triamcinolone 0.1% 30 Gm Cream TOPICAL SCH ×2 (07:54→20:30)
[2017-05-14] MEDS: Pantoprazole 4 mg/mL 10 mL Inj IVPUSH SCH (08:07)
[2017-05-14] MEDS: Heparin 5,000 Unit/mL Inj SUBQ SCH ×2 (08:07→16:30)
[2017-05-14] MEDS: Cholestyramine Resin Powder 4 Gm Packet PO SCH ×3 (08:07→15:42)
[2017-05-14] MEDS: Vitamins C,E, Omega-3, Mineral Tablet PO SCH (08:08)
[2017-05-14] MEDS: Piperacillin-Tazo 3.375 Gm Inj 3.375 GM in Dextrose 5% Minibag Plus 50 ML IV SCH ×2 (08:08→15:42)
[2017-05-14] MEDS ORDERED: Labetalol 5 mg/mL 20 mL Inj IVPUSH ONE (09:55)
--- NOTE | 2017-05-14 12:44 | NUR ---
Palliative Care Received verbal order from Dr Arciniega 05/14/17 to assist with goals of care. Patient admitted 05/09/17. Palliative Care to follow. Joceline Arevalo
--- NOTE | 2017-05-14 14:02 | NUR ---
Palliative care note D/A: Case discussed with Linsey GUTIERREZ. She notes that in discussion with pt at this time, he is eligible for hospice. She has written order for hospice services. Pt is desirous of a hospice info visit. Discussed with his son Luis Felipe Lim at [phone]. Pt is a resident at [facility]. Decision is reached to contact [facility], discussed Hospice Services pamphlet. Phone call to [facility] and leave message at Referral Center for an informational visit for 05/15/17. P: Palliative care to follow. [facility] Addendum: 05/14/17 at 1445 by ASHLEY MANRIQUEZ Palliative care note amendment D/A: Have heard from Gauri at [facility] who arranges for 1000 info visit for Thursday05/15/17. Phone call to pt son and have left a message on his cell phone. Linsey GUTIERREZ is aware of time. Phone call to rigo Vasquez who is also aware of time. P: Palliative care to follow. [facility]
--- NOTE | 2017-05-14 14:27 | PCM.PNMED ---
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 Patient was seen and examined by me today. He notes that he feels better today but certainly not back to baseline yet. He notes that he worked with physical therapy yesterday and needed maximum assist to be able to sit up on the side of the bed. He notes that although her requires a wheelchair to ambulate normally, he usually has enough strength to move by himself. He mentions desire to go to [facility] for rehabilitation. Moreover, he mentions that he is interested in speaking with Palliative care with regards to his goals of care. On ROS, patient reports coughing with sputum production that is slightly improved from yesterday. He notes that his voice is better, he is needing to suction less and he is more alert and awake today. He denies headaches, visual changes, chest pain, nausea, vomiting and abdominal pain. Overnight, patient notes that he was tolerating tube feeds and water through J tube. However, he reports some "burning" is head of bed is not at least 45 degrees. No other acute events overnight. Exam Vital Signs Vital Sign - Last Date Time Temp Pulse Resp B/P Pulse Ox O2 Delivery O2 Flow Rate FiO2 05/14/17 05:49 101 05/14/17 04:00 28 177/62 96 Nasal Cannula 1.00 05/14/17 03:47 37.1 05/10/17 08:15 40 Intake and Output 05/13/17 05/13/17 05/14/17 Cumulative From/Thru 15:00 23:00 07:00 05/09/17 18:45 - 05/14/17 06:52 Intake Total 875 ml 167 ml 30831 ml Output Total 700 ml 600 ml 7500 ml Balance 175 ml -433 ml 2516 ml Intake Oral 0 ml 0 ml 0 ml IV Total 875 ml 167 ml 63760 ml Output Urine Total 700 ml 600 ml 7500 ml # Bowel Movements 3 2 8 Exam General: Patient is ill-appearing, lying on bed, AAOX3, mild acute distress, cooperative. HEENT: head normocephalic and atraumatic, PERRLA, EOMI, no scleral icterus, noninjected conjunctiva Neck: neck supple, non-tender, no lymphadenopathy, trachea midline, no JVD CV: tachycardic, regular rhythm, s1 and s2 heard, + systolic murmur heard best on LUSB, radial pulses 2+ and equal bilaterally, no rubs murmurs or gallops, no edema Lungs: Patient on 2.0 L O2 via oxy-mask, course breath sounds bilaterally with diffuse wheezing, mild increased work of breathing, positive rhonchi although improved from yesterday Abdomen: normoactive bowel sounds on 4Q, soft, non-distended, non-tender to palpation, no organomegally, J-tube in place Skin: warm and dry : elizalde catheter in place draining yellow urine Musculoskeletal: UE and LE strength equal but reduced bilaterally Neuro: Grossly neurologically intact, cranial nerves II through XII intact, no dyskinesia, dysmetria, or dysdiadochokinesia noted, sensation intact Psych: Normal mood and flat affect IVs and Medications Medications Reviewed: Medications were reviewed in detail Lab and Diagnostics Laboratory Tests Test 05/14/17 03:34 White Blood Count 9.5th/mm3 (3.8-10.1) Red Blood Count 2.77mil/mm3 (4.40-5.80) Hemoglobin 8.7g/dL (13.8-17.2) Hematocrit 26.2% (41.0-50.0) Mean Corpuscular Volume 94.6fL (81-100) Mean Corpuscular Hemoglobin 31.4pg (27.0-35.0) Mean Corpuscular Hemoglobin Concent 33.2% (32.0-37.0) Red Cell Distribution Width 13.0% (12.3-15.4) Platelet Count 207bil/L (150-400) Neutrophils (%) (Auto) 77.0% (40-74) Lymphocytes (%) (Auto) 12.4% (14-46) Monocytes (%) (Auto) 9.7% (4-12) Eosinophils (%) (Auto) 0.1% (0-5) Basophils (%) (Auto) 0.1% (0-3) Sodium Level 144mEq/L (134-144) Potassium Level 3.2mEq/L (3.5-5.2) Chloride Level 109mEq/L (97-108) Carbon Dioxide Level 22mmol/L (18-29) Blood Urea Nitrogen 22mg/dL (8-27) Creatinine 0.43mg/dL (0.76-1.27) Estimat Glomerular Filtration Rate 198mL/min (>59) Glucose Level 126mg/dL (60-99) Lactic Acid Level 1.7mmol/L (0.4-2.0) Calcium Level 7.6mg/dL (8.5-10.1) Magnesium Level 1.8mg/dL (1.6-2.6) Total Bilirubin 0.3mg/dL (0.0-1.2) Aspartate Amino Transf (AST/SGOT) 19U/L (0-50) Alanine Aminotransferase (ALT/SGPT) 16U/L (0-44) Alkaline Phosphatase 51U/L (25-160) Total Protein 5.1g/dL (6.4-8.4) Albumin 3.1g/dL (3.4-5.0) Procalcitonin 0.10ng/mL (0.00-0.08) Microbiology 05/09/17 Blood Culture - Preliminary, Resulted No growth at 2 days; culture examined... 05/11/17 MRSA (PCR) - Final, Complete 05/10/17 Streptococcus pneumoniae Ag Screen - Final, Complete Result Diagram: 05/14/17 0334 05/14/17 0334 Microbiology Microbiology 05/09/17 Blood Culture - Preliminary, Resulted NO GROWTH AFTER 24 HOURS 05/11/17 Adenovirus DNA (PCR) - Final, Complete Not Detected 05/11/17 Coronavirus 229E PCR - Final, Complete Not Detected 05/11/17 Coronavirus HKU1 PCR - Final, Complete Not Detected 05/11/17 Coronavirus NL63 PCR - Final, Complete Not Detected 05/11/17 Coronavirus OC43 PCR - Final, Complete Not Detected 05/11/17 Influenza Type A (PCR) - Final, Complete Not Detected 05/11/17 Influenza Type B (PCR) - Final, Complete Not Detected 05/11/17 Human Metapneumovirus (PCR) (KAYA) - Final, Complete Not Detected 05/11/17 Rhinovirus (PCR)(KAYA) - Final, Complete Not Detected 05/11/17 Parainfluenza Virus Type 1 (PCR) - Final, Complete Not Detected 05/11/17 Parainfluenza Virus Type 2 (PCR) - Final, Complete Not Detected 05/11/17 Parainfluenza Virus Type 3 (PCR) - Final, Complete Not Detected 05/11/17 Parainfluenza Virus Type 4 (NAAT) - Final, Complete Not Detected 05/11/17 Respiratory Syncytial Virus (PCR)CT - Final, Complete Not Detected 05/11/17 Chlamydia pneumoniae (PCR) - Final, Complete Not Detected 05/11/17 Mycoplasma pneumoniae DNA Detection - Final, Complete 05/10/17 Streptococcus pneumoniae Ag Screen - Final, Complete X-Rays, CTs and MRIs PROCEDURE: CT ABDOMEN WITHOUT CONTRAST ([id number]) IMPRESSION: 1. Tip of gastrostomy tube is within the gastric lumen. 2. Resolved bilateral hydronephrosis. 3. Left greater than right bibasilar pneumonia with small parapneumonic effusions. 4. Small hiatal hernia. Dictated by: Mayda Thomson M.D. on 05/11/2017 at 13:43 X-RAY CHEST ONE VIEW, PORTABLE IMPRESSION: Very minimal right basilar streaky opacity. This could represent developing pneumonia or atelectasis. Dictated by: Dorene Zuniga M.D. on 05/09/2017 CT ANGIO CHEST PULMONARY EMBOLISM IMPRESSION: 1. Suboptimal evaluation of the pulmonary arteries beyond the main branches. No main pulmonary embolus. 2. Despite motion artifact, there appears to be presence of multiple small bibasilar and middle lobe areas of patchy opacities. Overall appearance is suggestive of infection/inflammatory change. Dictated by: Dorene Zuniga M.D. on 05/09/2017 Cardiac Echo Impressions Echocardiogram Report Name: ALEX HWANG LStudy Date: 05/11/2017 Height: 72 in Hospital Exam Location: [facility] Weight: 154 lb Gender: Male BSA: 1.9 m2 : 1925 Age: 89 yrs BP: 152/ 58 mmHg Reason For Study: SOB/ELEV TROP Ordering Physician: [facility] Performed By: Shelbi Bocanegra Referring Physician: Tyron Vivar Interpretation Summary Only limited views were obtained 1. Normal left ventricular size with mildly increased wall thickness and normal systolic function with an estimated EF of 60-65%. Wall motion abnormalities are as noted below. 2. Grossly normal right ventricular size and systolic function 3. Valves were not optimally visualized When comparing the limited views obtained on this study to the previous study, the findings appear similar Procedure: The study quality was technically limited. The study quality was technically adequate. Comparison is made with the echocardiogram of 03/24/17. The patient was in sinus tachycardia with heart rates between 93 and 115 bpm during the exam. Left Ventricle: The left ventricle is normal in size. There is mild concentric left ventricular hypertrophy. The ejection fraction is estimated to be 60-65%. There is basal inferior wall akinesis. There is basal inferoseptal wall akinesis. Upon review of the previous images, these findings were present on the previous echo. Right Ventricle: Not optimally visualized . The size appears grossly normal. The right ventricular systolic function is normal. Aortic Valve: The aortic valve is trileaflet. The aortic valve is moderately calcified. Pericardium/ Pleura There is no pericardial effusion. There is no pleural effusion. Additional Diagnostics DateTimeAnalyzed 19:43:00 -_ pH ____7.388 - 7.350 7.450 pCO2 ___42.1__ -mmHg 35.0 45.0 pO2 191 -mmHg 80.0 100 HCO3- ___24.8__ -mmol/L 22.0 26.0 ABE ____0.3__ -mmol/L -2.0 2.0 tHb ____9.8__ -g/dL 12.0 18.0 O2Hb ___97.5__ -% COHb ____0.7__ -% 1.5 MetHb ____1.1__ -% 0.4 1.5 sO2 ___99.3__ -% 95.0 FIO2 ___60.0__ -% Set_RR ___28.0__ -b/min Vt __650.0__ -L Drawn By AF - Date/Time Notified____ 19:51:00 -_ Spontaneous_RR ___16.0__ -b/min Oxygen Device 1 ____BIPAP - Notified By AF - Notified Whom ___DR. O'DORENE - B 760 -mmHg tO2 ___13.8__ -Vol% Sanjiv test _Positive - DateTimeAnalyzed 09:44:16 -_ pH ____7.427 - 7.350 7.450 pCO2 ___40.0__ -mmHg 35.0 45.0 pO2 ___84.5__ -mmHg 80.0 100 HCO3- ___26.3__ -mmol/L 22.0 26.0 ABE ____1.8__ -mmol/L -2.0 2.0 tHb ____8.5__ -g/dL 12.0 18.0 O2Hb ___96.8__ -% COHb ____1.9__ -% 1.5 MetHb ____0.0__ -% 0.4 1.5 sO2 ___98.5__ -% 95.0 FIO2 ___70.0__ -% Drawn By NB - Date/Time Notified____ 09:54:00 -_ Oxygen Device 1 oxy mask @ 9 liters -_ Notified By NB - K+ ____4.3__ -mmol/L 3.5 5.0 tO2 ___11.8__ -Vol% Sanjiv test N/A - Assessment & Plan Alex Hwang is an 89 year old male with unspecified cardiomyopathy, 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 Hospital day 6. Later in the afternoon, patient had a discussion with palliative care and made a decision that he wanted to be comfort measure only and stopping tube feedings. Acute Hypoxic Respiratory Failure. Present on admission. Ongoing Differential diagnosis includes pneumonia, Pulmonary embolism (ruled out with CT chest) patient also has history of Cardiomyopathy but does not have clinical evidence of fluid overload -Patient has been weaned down to 1 L O2 via NC - ABGs have normalized - Continue to monitor -Patient has been working with PT -Patient is now comfort measure only and stopping tube feedings. Likely Aspiration pneumonia . 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 Aspiration suspected despite patient being NPO, question if the feeding tube is in position and not causing aspiration. With recent TURP procedure patient could have aspirated during the procedure - continue Zosyn for likely aspiration pneumonia. Discontinued Levaquin on 05/13 and stop Zosyn as patient is now comfort care - MRSA screen negative. Discontinued Vancomycin -Viral PCR, strep pneumo urine and urine legionella were negative - de escalate antibiotics based on cultures, still pending and have been negative thus far - Pro calcitonin today decreased to 0.10 -WBC normalized to 9.5 - nothing by mouth - non contrast CT of the abdomen has been ordered which confirms appropriate position of feeding tube --Patient is now comfort measure only and stopping tube feedings. Hypokalemia,acute -Patient's potassium on 05/13/17 2.9 -Replete with IV potassium as needed -Recheck BMP Elevated troponin. Present on admission Likely due to demand ischemia due to pneumonia. Denies any anginal symptoms and EKG showing no ischemic changes - Troponin remains elevated, slight downward trend - Stop telemetry as patient is comfort care Hypertension, Chronic Presumed stable at the longterm - continued Amlodipine 5 mg daily -IV labetalol was given as patient has been hypertensive with systolic in the 170s today -Scheduled IV labetalol 20 mg IV bid -05/14 Patient no longer has IV access. He is now comfort care. Esophageal stricture status post dilation, and status post J tube - continue Jevity 1.2 Elvis 0.06 gram-1.2 kcal/mL oral liquid - Nutrition has been consulted to monitor tube feeding -Discontinued IV fluids as patient is able to tolerate fluids through J tube 05/14- Patient would like tube feedings to be discontinued as he is now comfort care BPH with chronic painful urination chronic - continued Tamsulosin 0.4 mg daily, Phenazopyridine 100 mg tid PRN - continued Finasteride 5 mg daily and Oxybutynin 5 mg bid -Patient underwent elective TURP on 05/08 with urologist, Dr. Cordova -Per recommendations by Dr. Cordova, we will leave elizalde catheter in place until discharge. 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 He expresses desire to discontinue tube feeding. He will likely discharge to SNF with goals of comfort measures only . Pain Evaluation: Adequate Pain Control GI Prophylaxis: Other (Patient has J tube) VTE Prophylaxis: Sub-Q Heparin (Unfractionated) VTE Mechanical Devices: Intermittant Pneumatic CD Resuscitation Status: DNR/DNI:Do Not Resuscitate/Intubate Attending Statement The patient was seen and examined together with Dr. Tejada on 05/14/2017 and I agree with the history, exam and plan as outlined in the note above. . Mary Anne Tejada DO May 14, 2017 08:00 Julius Arciniega MD May 15, 2017 16:23
--- NOTE | 2017-05-14 15:08 | NUR ---
Social Work: Continued Discharge Planning/Multidisciplinary Rounds D: Pt discussed in multidisciplinary rounds; the patient is not medically stable for discharge at this time. Patient will likely require SNF at discharge due to his decreased weakness. CM order has been placed to arrange for SNF. ADMINISTRATION MANAGER acknowledges order. patients preference is for [facility] per note and interaction with patient on 05/13. Cvicu Rn has placed order. Per Palliative Care providers, the patient is now interested in hospice. The patient has a hospice info visit arranged for tomorrow at 10:00am. Per palliative care provider patient is not interested in continuing tube feeds. It will need to be determined how to administer medications, and patient will likely require IV meds. [facility] will likely not be able to manage the patient with his current needs. [facility] R[facility] is referring to [facility]. A: Pt who has a hospice informational visit tomorrow at 10:00am P: Evolving; ADMINISTRATION MANAGER to follow up with patient and hospice to determine if patient signs consents with hospice and continue discharge planning. CHUCKY Badillo
--- NOTE | 2017-05-14 16:33 | PCM.CONPAL ---
Date of Service May 14, 2017 Date of Hospital Admission: May 09, 2017 at 21:31 Date of Palliative Consult: May 14, 2017 Requesting Provider: Dhiraj Hensley MD Comment: Pt declined pain medication at this time. Reason Palliative Care Consult: Goals of Care Discussion, Hospice Referral & Discussion Hospital Unit @time of consult: Progressive Care Palliative Care Recommendation Summary of palliative recommendations: -Symptom management (Pain/other) Respiratory distress and secretions: --Atropine, scop ordered --liquid morphine available -DPOA/Advanced Directives/POLST: DNR/DNI, comfort care to be initiated, stopping tube feedings. --POLST to be completed before DC -Family/emotional support --son is very supportive, appreciative of caring approach. -Spiritual support Patient Goals: 1. Patient wants to be told the truth about his/her illness, even if it is unpleasant. 2. Patient would like to be told prognosis when it can be predicted, to better guide treatment decisions. 3. Patient would choose quality of life over quantity of life, and defines quality as being able to enjoy family. 4. Patient would request that comfort care take priority over cognitive/mental confusion. Additional Medical Diagnoses with primary management by Hospitalist team include : Acute Hypoxic Respiratory Failure. Present on admission. Ongoing Differential diagnosis includes pneumonia, Pulmonary embolism (ruled out with CT chest) patient also has history of Cardiomyopathy but does not have clinical evidence of fluid overload - continue BIPAP when needed for non invasive ventilation -Patient has been weaned down to 1 L O2 via NC - Patient express wish for short term intubation if needed - ABGs have normalized Likely Aspiration pneumonia . Present on admission Hypokalemia,acute Elevated troponin. 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 Disposition home to bridge with hospice or skilled EOL care at [facility] Resuscitation Status Resuscitation Status: DNR/DNI:Do Not Resuscitate/Intubate (transitioning to comfort) POLST Updates/Changes Previous POLST?: No . 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 Initially the patient claims that he swallowed pills and then aspirated. Son confirms the patient does not take any medications by mouth and are all crushed and given through J tube. Patient mentioned the medication he was referring to was the Jevity feeding tube. Associated symptoms includes dry cough but denies any fever or chills. Patient denies any sick contacts. Denies any leg edema or orthopnea. Patient denies any chest pain Of note the patient had a TURP procedure yesterday. Patient has not been in the hospital in the last 3 months According to EMS, he was initially hypoxic with an oxygen saturation in the 70s , his BP was 181/74, and his breathing improved with oxygen, then it got worse as he arrived at the ED. The patient and son are both expressing concern over the patient's decline in quality of life. They are interested in options for end of life care. 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 "I just tried to do my best". Social History Occupation: see above Responsive Patient Symptoms Shortness of Breath: Moderate (excessive respiratory secretions) Palliative Performance Scale PPS Patient Status: Baseline PPS Ambulation: Reduced PPS Activity: Unable to do normal job/work PPS Self-Care: Occasional assistance necessary PPS Intake: Normal or reduced PPS Conscious Level: Full Performance Scale: 70% ADLs ADL Patient Status: Current ADL Ambulation: Mainly Bed ADL Dressing: Considerable assistance required ADL Feeding: Considerable assistance required ADL Hygene/bathing: Considerable assistance required ADL Transfers: Considerable assistance required Allergy Allergies Reviewed: Yes Medications Current Medications: Current Medications Pantoprazole 40 mg 0630 PO; Start 05/15/17 at 06:30 Labetalol HCl 20 mg BID IV; Start 05/14/17 at 20:30 Scheduled Amlodipine (Amlodipine) 5 Mg Tablet 5 MG PO DAILY Aspirin (Aspirin) 81 Mg Tablet 81 MG PO DAILY Calcium Citrate (Calcitrate) 200 Mg Tablet 400 MG PO DAILY Cholecalciferol (Vitamin D3) (Vitamin D3) 1,000 Unit Tab.chew 1,000 UNIT PO DAILY Cholestyramine (Questran Powder) 378 Gm Powd 1 DOSE PO 4-8X/DAY Clindamycin (Clindamycin) 300 Mg Capsule 300 MG PO QID Doxazosin (Cardura) 4 Mg Tablet 4 MG PO HS Esomeprazole Magnesium (Nexium) 40 Mg Capsule.dr 40 MG PO DAILY Finasteride (Finasteride) 5 Mg Tablet 5 MG PO DAILY Hydrocortisone (Hydrocortisone) 2.5 % Cream.appl 30 GM RC PRN Hydrocortisone (Proctozone-Hc) 30 Gm Cream.appl 30 GM RC PRN Lactose-Free Food/Fiber (Jevity 1.5 Elvis Liquid) 1,000 Ml Liquid 1,200 ML PO 6X DAY Loperamide HCl (Imodium A-D) 2 Mg Capsule 2 MG PO PRN Loratadine (Claritin) 10 Mg Capsule 10 MG PO DAILY Multivitamin W-Minerals/Lutein (Centrum Silver Ultra Men's Tab) 1 Each Tablet 1 EACH PO DAILY Sulfamethoxazole/Trimeth 400-80 mg (Bactrim 400-80 mg) 1 Each Tablet 1 TABLET PO TID Tamsulosin ER (Tamsulosin ER) 0.4 Mg Cap.er.24h 0.4 MG PO HS Terazosin (Terazosin) 5 Mg Capsule 5 MG PO HS Ubidecarenone/Vit E Acetate (Co Q-10 100 mg Softgel) 1 Each Capsule 1 EACH PO TID Scheduled PRN Acetaminophen (Tylenol Arthritis) 650 Mg Tablet.er 650 MG PO DAILY PRN PRN For Pain Bisacodyl (Bisacodyl Rectal) 10 Mg/30 Ml Enema 10 MG RC PRN PRN PRN For Constipation Dextromethor/Acetamin/Diphen (Diabetic Tussin Nighttime Liq) 118 Ml Liquid 10 ML PO Q4H PRN PRN PRN Hydrocodone-Acetaminophen 5-325 mg (Hydrocodone-Acetaminophen 5-325 mg) 1 Each Tablet 1-2 TABLET PO Q6H PRN PRN For Pain Lactose-Free Food/Fiber (Jevity 1.5 Elvis Liquid) 1,000 Ml Liquid 1,000 ML PO DIRECTED PRN PRN NUTRITION Magnesium Hydroxide (Milk of Magnesia) 400 Mg/5 Ml Oral.susp 30 ML PO DAILY PRN PRN PRN Na Phos,M-B/Na Phos,Di-Ba (Fleet Enema) 133 Ml Enema 133 ML RC DAILY PRN PRN PRN Ondansetron (Ondansetron) 4 Mg Tablet 4 MG PO EVERY 4 HOURS PRN PRN For Nausea Phenazopyridine (Phenazopyridine) 100 Mg Tablet 100 MG PO TID PRN PRN painful urination Triamcinolone Acet (Triamcinolone Acetonide Cream) 1 Applic/0.25 Gm Cr 1 APPLIC EXT BID PRN PRN For Itching Objective Findings Exam Vital Sign - Last Date Time Temp Pulse Resp B/P Pulse Ox O2 Delivery O2 Flow Rate FiO2 05/14/17 13:21 37.0 98 26 184/78 96 Nasal Cannula 1.00 05/10/17 08:15 40 Intake and Output 05/13/17 05/13/17 05/14/17 Cumulative From/Thru 15:00 23:00 07:00 05/09/17 18:45 - 05/14/17 06:52 Intake Total 875 ml 167 ml 25603 ml Output Total 700 ml 600 ml 7500 ml Balance 175 ml -433 ml 2516 ml Intake Oral 0 ml 0 ml 0 ml IV Total 875 ml 167 ml 10829 ml Output Urine Total 700 ml 600 ml 7500 ml # Bowel Movements 3 2 8 General: Alert/Oriented x3 HEENT: Atraumatic, PERRLA, EOMI, Scleral Anicteric Heart: Exam Unremarkable Lungs: Other (excessive secretions, gurgling, manages with hand-held Yankour) Abdomen: Soft Neuro: Exam Intact, Arousable, Follows Commands Lab/Diagnostics Lab and Imaging results reviewed in detail in EMR. Patient/Family Conference Members Present Family Members Present Patient and son at bedside. Medical Team Members Present? Linsey GUTIERREZ Discussion/Goals of Care Discussion FAMILY UNDERSTANDING OF DISEASE: [Pt and son both report declining QOL. Pt knows his weakness and poor gastric tone will lead to chronic aspiration and repeat hospitalizations. ] DISEASE PROGRESSION/EVIDENCE OF DECLINE/SYMPTOM BURDEN: [Decreasing QOL over months, now weakness and secretions are intolerable.] GOALS: [Pt expresses wish to have his life end, wonders if he can get "the process" done to achieve that. Reports he has no other goals to reach before , wants comfort through end of life.] HOPES/WORRIES: [Hopes it will go fast, worries about burdening son with the thought that he gave up/or hastened his .] Palliative Care counselled: Discussed the patient's right to stop life=prolonging care. That for him to stop accepting PEG feedings would mean letting nature take its course, lead to natural dying. Discussed symptom management for secretions, anxiety and pain r/t hunger.-- hospice is able to manage these EOL s/s. Time spent Total time 90 minutes; >50% face to face with patient and/or family, providing counselling regarding plans and recommendations, and in care coordination with his/her medical teams. OF this 40 minutes is spent counseling for advanced care planning with the patient/the patients family/the surrogate decision maker. copies to: Wyatt Jeronimo MD, [facility] May 14, 2017 16:33
[2017-05-14] MEDS ORDERED: Atropine 1% 5 mL Ophthalmic Solution PO PRN (16:50)
[2017-05-14] MEDS ORDERED: Haloperidol 5 mg/mL Inj IVPUSH PRN (16:50)
[2017-05-14] MEDS: Polyethylene Glycol (PEG) 17 Gm Powder PO PRN (18:38)
--- NOTE | 2017-05-14 19:41 | NUR ---
Change in plan of care No reports of chest pain/pressure/discomfort. Tele DC'd, vital signs checked per patient and family request. Encouraging deep breathing and coughing, has suction at bedside which he uses independently with thick white secretions. Patient on RA at 93-95%, reports that he feels like his breathing has not improved much. No reports of n/v or abdominal pain. Abdomen is firm to touch. Bowel tones normal, gave miralax per patient request for difficulty passing stool. Patient wishes to stop tube feeds after discussion with palliative care. Last administered his home jevity tube feed (8 ounce gravity with 55ml flush before and after) at 1100. [employer] elizalde is patent and draining yellow urine to gravity.
[2017-05-14] MEDS: Labetalol 5 mg/mL 20 mL Inj IV SCH (20:30)
--- NOTE | 2017-05-15 05:17 | NUR ---
Pt Directing Care: Pt had a bowel movement early in the shift. The pt is refusing any nutrition or medication. The pt has denied pain throughout the night. No IV access. Pt directing staff on when he desires to turn or move in bed.
[2017-05-15] MEDS ORDERED: Pantoprazole 40 mg ER24 Tablet PO SCH (06:30)
[2017-05-15 08:00] VITALS: BP 172/74; PULSE 89; RESP 24; O2SAT 94
[2017-05-15] MEDS: Triamcinolone 0.1% 30 Gm Cream TOPICAL SCH ×2 (08:30→20:18)
[2017-05-15] MEDS: Labetalol 5 mg/mL 20 mL Inj IV SCH ×2 (08:30→20:18)
[2017-05-15] MEDS: Vitamins C,E, Omega-3, Mineral Tablet PO SCH (08:30)
--- NOTE | 2017-05-15 08:55 | NUR ---
HALF-WAY TRANSFER : Gave access and faxed facesheet to [facility] per INTEGRATION ASSISTANT and MD orders Addendum: 05/15/17 at 1037 by STELLA COX CM [facility] can accept but if patient is wanting to open with Hospice then he would be private pay for room and board. This was mentioned in multidisciplinary rounds as well. Updated INTEGRATION ASSISTANT
--- NOTE | 2017-05-15 12:38 | PCM.PALLBR ---
Palliative Care Recommendation Summary of palliative recommendations: -Symptom management (Pain/other) Respiratory distress and secretions: --Atropine, scop ordered --liquid morphine available -DPOA/Advanced Directives/POLST: DNR/DNI, comfort care to be initiated, stopping tube feedings. --POLST completed today with the patient and the original and a copy are in his paper chart, with an additional copy in the palliative office. His stated wishes include DNR/DNI/comfort/no antibiotics/no artificial nutrition. -Family/emotional support --son is very supportive, appreciative of caring approach. -Spiritual support Patient Goals: 1. Patient wants to be told the truth about his illness, even if it is unpleasant. 2. Patient would like to be told prognosis when it can be predicted, to better guide treatment decisions. 3. Patient would choose quality of life over quantity of life, and defines quality as being able to enjoy family. Additional Medical Diagnoses with primary management by Hospitalist team include : Acute Hypoxic Respiratory Failure. Present on admission. Ongoing Likely Aspiration pneumonia . Present on admission Hypokalemia,acute Elevated troponin. 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 Disposition home to bridge with hospice or skilled EOL care at [facility] Resuscitation Status Resuscitation Status: DNR/DNI:Do Not Resuscitate/Intubate POLST Updates/Changes Previous POLST?: No POLST Last Review Date: May 15, 2017 Antibiotics: No Antibiotics Artificially Admin Nutrition: No Artifical Nutrition by Tube POLST Discussed with: Patient POLST Review Outcome: New Form Completed . Advanced Care Planning Address: POLST, Comfort care Pain: None Total time 35 minutes; >50% face to face with patient, providing counselling regarding plans and recommendations, and in care coordination with his medical teams. All of the above time counseling for advanced care planning with the patient completing a new POLST consistent with his wishes copies to: Wyatt Jeronimo MD Palliative Brief Note Date of Service May 15, 2017 . Returned to reevaluate patient. Prior to visiting, reviewed his updated records in the EMR, received signout from other palliative provider and spoke with his bedside nurse. His case was also reviewed at morning discharge planning rounds. When I arrived in the room, he is resting in bed. He answers questions appropriately. Denies any significant pain, dyspnea, nausea or other. He recalls conversation with Ms. Marie yesterday and reiterates that he is going to be kept comfortable without other aggressive interventions from now on. He is uncertain whether he will be really returning to [facility] or to an SNF. On exam, vital signs noted. Skin is warm and dry. Head and neck exam without acute focal findings. Lungs clear anteriorly, heart sounds distant and regular, abdomen soft and nontender. Hipolito Ellis MD May 15, 2017 12:38
--- NOTE | 2017-05-15 12:47 | NUR ---
Palliative care note D/A: POLST completed today with Dr. Ellis. POLST is signed by pt and elects comfort care. Code status is DNAR with comfort focused treatment. Pt elects not to use antibiotics unless for symptom management and does not wish for medically assisted nutrition by tube. POLST is scanned and emailed to Vani West at [facility]. P: Palliative to follow as needed. Praveena NEW, CCM
--- NOTE | 2017-05-15 13:27 | NUR ---
Per MD: pt is going comfort care. No further acute PT.
[2017-05-15 16:43] VITALS: BP 179/84; PULSE 87; RESP 28; O2SAT 90
--- NOTE | 2017-05-15 16:53 | NUR ---
Social Work Note: Continued Discharge Planning Data& Assessment: Pt completed a hospice informational visit this morning and signed consents for hospice. Pt would like to discharge back to [facility] with Hospice. DIRECTOR OF EMAIL MARKETING spoke with Gauri from Hospice who states that they will not be able to open services with pt until Thursday05/17/2017. DIRECTOR OF EMAIL MARKETING spoke with Brittaney from [facility] who states that they will be able to accept pt this weekend when medically ready without a bedside assessment. DIRECTOR OF EMAIL MARKETING communicated this to MD. MD states pt will likely be medically stable for discharge Thursday when Hospice is able to open services. Brittaney from [facility] updated and agreeable to plan. Hospice updated and agreeable to plan. Plan: Per MD pt is getting closer to being medically stable for discharge back home to [facility] with Hospice to open on Thursday05/17/2017. DIRECTOR OF EMAIL MARKETING to follow up with pt and pt family regarding transportation home. DIRECTOR OF EMAIL MARKETING to continue to follow. CHUCKY Haider
[2017-05-15] MEDS: Morphine 2 mg/mL 5 mL Oral Solution PEG PRN (17:12)
--- NOTE | 2017-05-15 17:18 | NUR ---
Comfort... Pt has been comfortable other than intermittent abdominal pain that he feels is related to not having any food. Declined earlier in taking anything for it but is now requesting pain med. Med with Morphine per peg tube. Son has been here and pt has been made comfort care per new polst form. Has been refusing some aspects of care and meds. Allowed to make his decisions for turning and meds.
--- NOTE | 2017-05-15 18:57 | PCM.PNMED ---
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 Hospital day 6. 05/14/17 Patient had a discussion with palliative care and made a decision that he wanted to be comfort measure only and stopping tube feedings. His stated wishes include DNR/DNI/comfort/no antibiotics/no artificial nutrition. Patient states that he was feeling tired this morning. He has no concerns today and states that he is comfortable. He is accompanied by his son at bedside. Exam Vital Signs Vital Sign - Last Date Time Temp Pulse Resp B/P Pulse Ox O2 Delivery O2 Flow Rate FiO2 05/15/17 16:43 36.9 87 28 179/84 90 Room Air 05/14/17 13:21 1.00 05/10/17 08:15 40 Intake and Output 05/14/17 05/14/17 05/15/17 Cumulative From/Thru 15:00 23:00 07:00 05/09/17 18:45 - 05/15/17 06:09 Intake Total 0 ml 0 ml 36662 ml Output Total 1000 ml 1150 ml 9650 ml Balance -1000 ml -1150 ml 366 ml Intake Oral 0 ml 0 ml 0 ml IV Total 84683 ml Output Urine Total 1000 ml 1150 ml 9650 ml # Bowel Movements 1 9 Exam General: Patient is ill-appearing, lying on bed, AAOX3, mild acute distress, cooperative. HEENT: head normocephalic and atraumatic, PERRLA, EOMI, no scleral icterus, noninjected conjunctiva Neck: neck supple, non-tender, no lymphadenopathy, trachea midline, no JVD CV: tachycardic, regular rhythm, s1 and s2 heard, + systolic murmur heard best on LUSB, radial pulses 2+ and equal bilaterally, no rubs murmurs or gallops, no edema Lungs: Patient on 2.0 L O2 via oxy-mask, course breath sounds bilaterally with diffuse wheezing, mild increased work of breathing, positive rhonchi Abdomen: normoactive bowel sounds on 4Q, soft, non-distended, non-tender to palpation, no organomegally, J-tube in place Skin: warm and dry : elizalde catheter in place draining yellow urine Musculoskeletal: UE and LE strength equal but reduced bilaterally Neuro: Grossly neurologically intact, cranial nerves II through XII intact, no dyskinesia, dysmetria, or dysdiadochokinesia noted, sensation intact Psych: Normal mood and flat affect Lab and Diagnostics Result Diagram: 05/14/17 0334 05/14/17 1436 Microbiology Microbiology 05/09/17 Blood Culture - Preliminary, Resulted NO GROWTH AFTER 24 HOURS 05/11/17 Adenovirus DNA (PCR) - Final, Complete Not Detected 05/11/17 Coronavirus 229E PCR - Final, Complete Not Detected 05/11/17 Coronavirus HKU1 PCR - Final, Complete Not Detected 05/11/17 Coronavirus NL63 PCR - Final, Complete Not Detected 05/11/17 Coronavirus OC43 PCR - Final, Complete Not Detected 05/11/17 Influenza Type A (PCR) - Final, Complete Not Detected 05/11/17 Influenza Type B (PCR) - Final, Complete Not Detected 05/11/17 Human Metapneumovirus (PCR) (KAYA) - Final, Complete Not Detected 05/11/17 Rhinovirus (PCR)(KAYA) - Final, Complete Not Detected 05/11/17 Parainfluenza Virus Type 1 (PCR) - Final, Complete Not Detected 05/11/17 Parainfluenza Virus Type 2 (PCR) - Final, Complete Not Detected 05/11/17 Parainfluenza Virus Type 3 (PCR) - Final, Complete Not Detected 05/11/17 Parainfluenza Virus Type 4 (NAAT) - Final, Complete Not Detected 05/11/17 Respiratory Syncytial Virus (PCR)[place] - Final, Complete Not Detected 05/11/17 Chlamydia pneumoniae (PCR) - Final, Complete Not Detected 05/11/17 Mycoplasma pneumoniae DNA Detection - Final, Complete 05/10/17 Streptococcus pneumoniae Ag Screen - Final, Complete X-Rays, CTs and MRIs PROCEDURE: CT ABDOMEN WITHOUT CONTRAST ([id number]) IMPRESSION: 1. Tip of gastrostomy tube is within the gastric lumen. 2. Resolved bilateral hydronephrosis. 3. Left greater than right bibasilar pneumonia with small parapneumonic effusions. 4. Small hiatal hernia. Dictated by: Mayda Thomson M.D. on 05/11/2017 at 13:43 X-RAY CHEST ONE VIEW, PORTABLE IMPRESSION: Very minimal right basilar streaky opacity. This could represent developing pneumonia or atelectasis. Dictated by: Dorene Zuniga M.D. on 05/09/2017 CT ANGIO CHEST PULMONARY EMBOLISM IMPRESSION: 1. Suboptimal evaluation of the pulmonary arteries beyond the main branches. No main pulmonary embolus. 2. Despite motion artifact, there appears to be presence of multiple small bibasilar and middle lobe areas of patchy opacities. Overall appearance is suggestive of infection/inflammatory change. Dictated by: Dorene Zuniga M.D. on 05/09/2017 Cardiac Echo Impressions Echocardiogram Report Name: ALEX HWANG LStudy Date: 05/11/2017 Height: 72 in Hospital Exam Location: [facility] Weight: 154 lb Gender: Male BSA: 1.9 m2 : 1925 Age: 89 yrs BP: 152/ 58 mmHg Reason For Study: SOB/ELEV TROP Ordering Physician: DANOIST [facility] Performed By: Shelbi Bocanegra Referring Physician[facility] Interpretation Summary Only limited views were obtained 1. Normal left ventricular size with mildly increased wall thickness and normal systolic function with an estimated EF of 60-65%. Wall motion abnormalities are as noted below. 2. Grossly normal right ventricular size and systolic function 3. Valves were not optimally visualized When comparing the limited views obtained on this study to the previous study, the findings appear similar Procedure: The study quality was technically limited. The study quality was technically adequate. Comparison is made with the echocardiogram of 03/24/17. The patient was in sinus tachycardia with heart rates between 93 and 115 bpm during the exam. Left Ventricle: The left ventricle is normal in size. There is mild concentric left ventricular hypertrophy. The ejection fraction is estimated to be 60-65%. There is basal inferior wall akinesis. There is basal inferoseptal wall akinesis. Upon review of the previous images, these findings were present on the previous echo. Right Ventricle: Not optimally visualized . The size appears grossly normal. The right ventricular systolic function is normal. Aortic Valve: The aortic valve is trileaflet. The aortic valve is moderately calcified. Pericardium/ Pleura There is no pericardial effusion. There is no pleural effusion. Additional Diagnostics DateTimeAnalyzed 19:43:00 -_ pH ____7.388 - 7.350 7.450 pCO2 ___42.1__ -mmHg 35.0 45.0 pO2 191 -mmHg 80.0 100 HCO3- ___24.8__ -mmol/L 22.0 26.0 ABE ____0.3__ -mmol/L -2.0 2.0 tHb ____9.8__ -g/dL 12.0 18.0 O2Hb ___97.5__ -% COHb ____0.7__ -% 1.5 MetHb ____1.1__ -% 0.4 1.5 sO2 ___99.3__ -% 95.0 FIO2 ___60.0__ -% Set_RR ___28.0__ -b/min Vt __650.0__ -L Drawn By AF - Date/Time Notified____ 19:51:00 -_ Spontaneous_RR ___16.0__ -b/min Oxygen Device 1 ____BIPAP - Notified By AF - Notified Whom ___DR. O'DORENE - B 760 -mmHg tO2 ___13.8__ -Vol% Sanjiv test _Positive - DateTimeAnalyzed 09:44:16 -_ pH ____7.427 - 7.350 7.450 pCO2 ___40.0__ -mmHg 35.0 45.0 pO2 ___84.5__ -mmHg 80.0 100 HCO3- ___26.3__ -mmol/L 22.0 26.0 ABE ____1.8__ -mmol/L -2.0 2.0 tHb ____8.5__ -g/dL 12.0 18.0 O2Hb ___96.8__ -% COHb ____1.9__ -% 1.5 MetHb ____0.0__ -% 0.4 1.5 sO2 ___98.5__ -% 95.0 FIO2 ___70.0__ -% Drawn By NB - Date/Time Notified____ 09:54:00 -_ Oxygen Device 1 oxy mask @ 9 liters -_ Notified By NB - K+ ____4.3__ -mmol/L 3.5 5.0 tO2 ___11.8__ -Vol% Sanjiv test N/A - Assessment & Plan Alex Hwang is an 89 year old male with unspecified cardiomyopathy, 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 Hospital day 7. 05/14/17 Patient had a discussion with palliative care and made a decision that he wanted to be comfort measure only and stopping tube feedings. His stated wishes include DNR/DNI/comfort/no antibiotics/no artificial nutrition. Acute Hypoxic Respiratory Failure. Present on admission. Ongoing Differential diagnosis includes pneumonia, Pulmonary embolism (ruled out with CT chest) patient also has history of Cardiomyopathy but does not have clinical evidence of fluid overload -Patient has been weaned down to 1 L O2 via NC - ABGs have normalized - Continue to monitor -Patient has been working with PT -Patient is now comfort measure only and stopping tube feedings. Likely Aspiration pneumonia . Present on admission risk factors for MRSA and Pseudomonal infection with patient being a [facility] resident. Aspiration suspected despite patient being NPO, question if the feeding tube is in position and not causing aspiration. With recent TURP procedure patient could have aspirated during the procedure - continue Zosyn for likely aspiration pneumonia. Discontinued Levaquin on 05/13 and stop Zosyn as patient is now comfort care - MRSA screen negative. Discontinued Vancomycin -Viral PCR, strep pneumo urine and urine legionella were negative - de escalate antibiotics based on cultures, still pending and have been negative thus far - Pro calcitonin today decreased to 0.10 -WBC normalized to 9.5 - nothing by mouth - non contrast CT of the abdomen has been ordered which confirms appropriate position of feeding tube --Patient is now comfort measure only and stopping tube feedings. Hypokalemia,acute -Patient's potassium on 05/13/17 2.9 -Replete with IV potassium as needed Elevated troponin. Present on admission Likely due to demand ischemia due to pneumonia. Denies any anginal symptoms and EKG showing no ischemic changes - Troponin remains elevated, slight downward trend - Stop telemetry as patient is comfort care Hypertension, Chronic Presumed stable at the intermediate - continued Amlodipine 5 mg daily -IV labetalol was given as patient has been hypertensive with systolic in the 170s today -Scheduled IV labetalol 20 mg IV bid -05/14 Patient no longer has IV access. He is now comfort care. Esophageal stricture status post dilation, and status post J tube - continue Jevity 1.2 Elvis 0.06 gram-1.2 kcal/mL oral liquid - Nutrition has been consulted to monitor tube feeding -Discontinued IV fluids as patient is able to tolerate fluids through J tube 05/14- Patient would like tube feedings to be discontinued as he is now comfort care BPH with chronic painful urination chronic - continued Tamsulosin 0.4 mg daily, Phenazopyridine 100 mg tid PRN - continued Finasteride 5 mg daily and Oxybutynin 5 mg bid -Patient underwent elective TURP on 05/08 with urologist, Dr. Cordova -Per recommendations by Dr. Cordova, we will leave elizalde catheter in place until discharge. Patient will follow-up closely with urology. 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 He expresses desire to discontinue tube feeding. [facility] goals of comfort measures only. . Pain Evaluation: Adequate Pain Control GI Prophylaxis: Other (Patient has J tube) VTE Prophylaxis: Sub-Q Heparin (Unfractionated) VTE Mechanical Devices: Intermittant Pneumatic CD Resuscitation Status: DNR/DNI:Do Not Resuscitate/Intubate Attending Statement The patient was seen and examined together with Dr. Tejada on 05/15/2017 and I agree with the history, exam and plan as outlined in the note above. . Mary Anne Tejada DO May 15, 2017 18:56 Julius Arciniega MD May 16, 2017 07:55
--- NOTE | 2017-05-15 23:43 | NUR ---
skin bilateral groin redness. patient denies itching or irritation. scrotum and perineum have redness. denies discomfort or itching. penis is swollen. elizalde catheter is patent., catheter care performed. catheter is secure to right leg. applied calmoseptine to reddned areas. cleaned periarea. changed brief. stool x1. patient refuses to be repositioned. comfort cqre. remains supine with pillows under legs.
--- NOTE | 2017-05-16 00:04 | NUR ---
oral comfort patient given ice chips for dry mouth fearful to swallow. stated "i haven't swallowed in a very long time." gave encouragement. patient successfully sucked on 2 ice chips and swallowed without difficulty. stated "that tasted good." will cont to provide ice chips per patient comfort.
--- NOTE | 2017-05-16 04:28 | NUR ---
Comfort: Assumed care of pt. at 0230. Pt. appears to be resting comfortable in bed, denies pain, denies SOB at this time. No overt signs or symptoms of distress. Vital signs not completed per comfort. Care activities grouped to allow for pt. rest. Oral care completed with swabs. Refuses turning.
[2017-05-16] MEDS: Morphine 2 mg/mL 5 mL Oral Solution PEG PRN (05:10)
[2017-05-16] MEDS: Triamcinolone 0.1% 30 Gm Cream TOPICAL SCH ×2 (08:30→20:30)
[2017-05-16] MEDS: Labetalol 5 mg/mL 20 mL Inj IV SCH ×2 (08:30→20:30)
[2017-05-16] MEDS: Vitamins C,E, Omega-3, Mineral Tablet PO SCH (08:30)
[2017-05-16 08:41] VITALS: BP 168/83; PULSE 87; RESP 16; O2SAT 94
--- NOTE | 2017-05-16 08:50 | PCM.PNMED ---
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 05/14/17 Patient had a discussion with palliative care and made a decision that he wanted to be comfort measure only and stopping tube feedings. His stated wishes include DNR/DNI/comfort/no antibiotics/no artificial nutrition. Patient was seen and examined by me this morning. He was resting comfortably without increased work of breathing or secretions. Per nursing notes, overnight patient appeared to be resting comfortable in bed, denies pain, denies SOB at this time. No overt signs or symptoms of distress. Vital signs not completed per comfort. Care activities grouped to allow for patient rest. Oral care completed with swabs. He refused turning Exam Vital Signs Vital Sign - Last Date Time Temp Pulse Resp B/P Pulse Ox O2 Delivery O2 Flow Rate FiO2 05/15/17 16:43 36.9 87 28 179/84 90 Room Air 05/14/17 13:21 1.00 05/10/17 08:15 40 Intake and Output 05/15/17 05/15/17 05/16/17 Cumulative From/Thru 15:00 23:00 07:00 05/09/17 18:45 - 05/16/17 06:15 Intake Total 0 ml 0 ml 43922 ml Output Total 1150 ml 1350 ml 36205 ml Balance -1150 ml -1350 ml -2134 ml Intake Oral 0 ml 0 ml 0 ml IV Total 90740 ml Output Urine Total 1150 ml 1350 ml 54257 ml # Bowel Movements 3 2 14 Exam General: Patient is ill-appearing, lying on bed, sleeping comfortably HEENT: head normocephalic and atraumatic, patient sleeping with eyes closed Neck: neck supple, non-tender, no lymphadenopathy, trachea midline, no JVD CV: tachycardic, regular rhythm, s1 and s2 heard, + systolic murmur heard best on LUSB, radial pulses 2+ and equal bilaterally, no rubs murmurs or gallops, no edema Lungs: course breath sounds anteriorly, mild increased work of breathing, Abdomen: normoactive bowel sounds on 4Q, soft, non-distended, non-tender to palpation, no organomegally, J-tube in place Skin: warm and dry : elizalde catheter in place draining yellow urine Neuro: unable to do neuro exam as patient is sleeping Psych:resting comfortably IVs and Medications Medications Reviewed: Medications were reviewed in detail Lab and Diagnostics Result Diagram: 05/14/17 0334 05/14/17 1436 Microbiology Microbiology 05/09/17 Blood Culture - Preliminary, Resulted NO GROWTH AFTER 24 HOURS 05/11/17 Adenovirus DNA (PCR) - Final, Complete Not Detected 05/11/17 Coronavirus 229E PCR - Final, Complete Not Detected 05/11/17 Coronavirus HKU1 PCR - Final, Complete Not Detected 05/11/17 Coronavirus NL63 PCR - Final, Complete Not Detected 05/11/17 Coronavirus OC43 PCR - Final, Complete Not Detected 05/11/17 Influenza Type A (PCR) - Final, Complete Not Detected 05/11/17 Influenza Type B (PCR) - Final, Complete Not Detected 05/11/17 Human Metapneumovirus (PCR) (KAYA) - Final, Complete Not Detected 05/11/17 Rhinovirus (PCR)(KAYA) - Final, Complete Not Detected 05/11/17 Parainfluenza Virus Type 1 (PCR) - Final, Complete Not Detected 05/11/17 Parainfluenza Virus Type 2 (PCR) - Final, Complete Not Detected 05/11/17 Parainfluenza Virus Type 3 (PCR) - Final, Complete Not Detected 05/11/17 Parainfluenza Virus Type 4 (NAAT) - Final, Complete Not Detected 05/11/17 Respiratory Syncytial Virus (PCR)RI - Final, Complete Not Detected 05/11/17 Chlamydia pneumoniae (PCR) - Final, Complete Not Detected 05/11/17 Mycoplasma pneumoniae DNA Detection - Final, Complete 05/10/17 Streptococcus pneumoniae Ag Screen - Final, Complete X-Rays, CTs and MRIs PROCEDURE: CT ABDOMEN WITHOUT CONTRAST ([id number]) IMPRESSION: 1. Tip of gastrostomy tube is within the gastric lumen. 2. Resolved bilateral hydronephrosis. 3. Left greater than right bibasilar pneumonia with small parapneumonic effusions. 4. Small hiatal hernia. Dictated by: Mayda Thomson M.D. on 05/11/2017 at 13:43 X-RAY CHEST ONE VIEW, PORTABLE IMPRESSION: Very minimal right basilar streaky opacity. This could represent developing pneumonia or atelectasis. Dictated by: Dorene Zuniga M.D. on 05/09/2017 CT ANGIO CHEST PULMONARY EMBOLISM IMPRESSION: 1. Suboptimal evaluation of the pulmonary arteries beyond the main branches. No main pulmonary embolus. 2. Despite motion artifact, there appears to be presence of multiple small bibasilar and middle lobe areas of patchy opacities. Overall appearance is suggestive of infection/inflammatory change. Dictated by: Dorene Zuniga M.D. on 05/09/2017 Cardiac Echo Impressions Echocardiogram Report Name: ALEX HWANG LStudy Date: 05/11/2017 Height: 72 in Hospital Exam Location: [facility] Weight: 154 lb Gender: Male BSA: 1.9 m2 : 1925 Age: 89 yrs BP: 152/ 58 mmHg Reason For Study: SOB/ELEV TROP Ordering Physician: HOSPITALIST [facility] Performed By: Shelbi Bocanegra Referring Physician: Tyron Vivar Interpretation Summary Only limited views were obtained 1. Normal left ventricular size with mildly increased wall thickness and normal systolic function with an estimated EF of 60-65%. Wall motion abnormalities are as noted below. 2. Grossly normal right ventricular size and systolic function 3. Valves were not optimally visualized When comparing the limited views obtained on this study to the previous study, the findings appear similar Procedure: The study quality was technically limited. The study quality was technically adequate. Comparison is made with the echocardiogram of 03/24/17. The patient was in sinus tachycardia with heart rates between 93 and 115 bpm during the exam. Left Ventricle: The left ventricle is normal in size. There is mild concentric left ventricular hypertrophy. The ejection fraction is estimated to be 60-65%. There is basal inferior wall akinesis. There is basal inferoseptal wall akinesis. Upon review of the previous images, these findings were present on the previous echo. Right Ventricle: Not optimally visualized . The size appears grossly normal. The right ventricular systolic function is normal. Aortic Valve: The aortic valve is trileaflet. The aortic valve is moderately calcified. Pericardium/ Pleura There is no pericardial effusion. There is no pleural effusion. Additional Diagnostics DateTimeAnalyzed 19:43:00 -_ pH ____7.388 - 7.350 7.450 pCO2 ___42.1__ -mmHg 35.0 45.0 pO2 191 -mmHg 80.0 100 HCO3- ___24.8__ -mmol/L 22.0 26.0 ABE ____0.3__ -mmol/L -2.0 2.0 tHb ____9.8__ -g/dL 12.0 18.0 O2Hb ___97.5__ -% COHb ____0.7__ -% 1.5 MetHb ____1.1__ -% 0.4 1.5 sO2 ___99.3__ -% 95.0 FIO2 ___60.0__ -% Set_RR ___28.0__ -b/min Vt __650.0__ -L Drawn By AF - Date/Time Notified____ 19:51:00 -_ Spontaneous_RR ___16.0__ -b/min Oxygen Device 1 ____BIPAP - Notified By AF - Notified Whom ___DR. O'DORENE - B 760 -mmHg tO2 ___13.8__ -Vol% Sanjiv test _Positive - DateTimeAnalyzed 09:44:16 -_ pH ____7.427 - 7.350 7.450 pCO2 ___40.0__ -mmHg 35.0 45.0 pO2 ___84.5__ -mmHg 80.0 100 HCO3- ___26.3__ -mmol/L 22.0 26.0 ABE ____1.8__ -mmol/L -2.0 2.0 tHb ____8.5__ -g/dL 12.0 18.0 O2Hb ___96.8__ -% COHb ____1.9__ -% 1.5 MetHb ____0.0__ -% 0.4 1.5 sO2 ___98.5__ -% 95.0 FIO2 ___70.0__ -% Drawn By NB - Date/Time Notified____ 09:54:00 -_ Oxygen Device 1 oxy mask @ 9 liters -_ Notified By NB - K+ ____4.3__ -mmol/L 3.5 5.0 tO2 ___11.8__ -Vol% Sanjiv test N/A - Assessment & Plan Alex Hwang is an 89 year old male with unspecified cardiomyopathy, 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 Hospital day 8. 05/14/17 Patient had a discussion with palliative care and made a decision that he wanted to be comfort measure only and stopping tube feedings. His stated wishes include DNR/DNI/comfort/no antibiotics/no artificial nutrition. Acute Hypoxic Respiratory Failure. Present on admission. Ongoing Differential diagnosis includes pneumonia, Pulmonary embolism (ruled out with CT chest) patient also has history of Cardiomyopathy but does not have clinical evidence of fluid overload -Patient off of supplemental oxygen - ABGs have normalized -Patient was working with PT -Patient is now comfort measure only and tube feedings have been discontinued Likely Aspiration pneumonia . Present on admission risk factors for MRSA and Pseudomonal infection with patient being a [facility] resident. Aspiration suspected despite patient being NPO, question if the feeding tube is in position and not causing aspiration. With recent TURP procedure patient could have aspirated during the procedure - continue Zosyn for likely aspiration pneumonia. Discontinued Levaquin on 05/13 and stop Zosyn as patient is now comfort care - MRSA screen negative. Discontinued Vancomycin -Viral PCR, strep pneumo urine and urine legionella were negative - de escalate antibiotics based on cultures, still pending and have been negative thus far - Pro calcitonin today decreased to 0.10 -WBC normalized to 9.5 - nothing by mouth - non contrast CT of the abdomen has been ordered which confirms appropriate position of feeding tube -Patient is now comfort measure only and stopping tube feedings. Hypokalemia,acute -Patient's potassium on 05/13/17 2.9 -Repleted with IV potassium but patient is comfort measures and we have stopped trending potassium Elevated troponin. Present on admission Likely due to demand ischemia due to pneumonia. Denies any anginal symptoms and EKG showing no ischemic changes - Troponin remains elevated, slight downward trend - Stop telemetry as patient is comfort care Hypertension, Chronic Presumed stable at the senior living - continued Amlodipine 5 mg daily -IV labetalol was given as patient has been hypertensive with systolic in the 170s today -Scheduled IV labetalol 20 mg IV bid -05/14 Patient no longer has IV access. He is now comfort care. Esophageal stricture status post dilation, and status post J tube - continue Jevity 1.2 Elvis 0.06 gram-1.2 kcal/mL oral liquid - Nutrition has been consulted to monitor tube feeding -Discontinued IV fluids as patient is able to tolerate fluids through J tube 05/14- Patient would like tube feedings to be discontinued as he is now comfort care BPH with chronic painful urination chronic - continued Tamsulosin 0.4 mg daily, Phenazopyridine 100 mg tid PRN - continued Finasteride 5 mg daily and Oxybutynin 5 mg bid -Patient underwent elective TURP on 05/08 with urologist, Dr. Cordova -Per recommendations by Dr. Cordova, we will leave elizalde catheter in place until discharge. Patient will follow-up closely with urology. 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 He expresses desire to discontinue tube feeding. He will likely discharge back to the [facility] with hospice and goals of comfort measures only on Thursday 05/17. Pain Evaluation: Adequate Pain Control GI Prophylaxis: Other (Patient has J tube) Resuscitation Status: DNR/DNI:Do Not Resuscitate/Intubate Attending Statement The patient was seen and examined together with Dr. Tejada on 05/16/2017 and I agree with the history, exam and plan as outlined in the note above. . Mary Anne Tejada DO May 16, 2017 08:50 Julius Arciniega MD May 17, 2017 08:39
[2017-05-16 13:29] VITALS: BP 139/79; PULSE 76; RESP 16; O2SAT 94
[2017-05-16] MEDS ORDERED: .Epic Conversion Completed XX PRN (17:15)
--- NOTE | 2017-05-16 18:16 | NUR ---
Comfort Cardiac: No telemetry. Denies chest pain. Resp: Pt denies SOB, suction at bedside, pt able to use suction himself. GI/: Denies nausea. Beltran catheter patent and draining via gravity. Brief on. Did not want anything PO, not even ice chips. Neuro: Denied pain this shift. Alert and oriented X3. Pleasant and cooperative with care. Pt declined all meds this AM.
--- NOTE | 2017-05-16 18:37 | NUR ---
Social Work Note: Readiness for Discharge Data& Assessment: Per MD pt is getting closer to being medially stable for his discharge tomorrow morning with Hospice opening for Intake at 10:00am. PUBLIC HEALTH SANITARIAN TECHNICIAN spoke with pt son Luis Felipe regarding transportation and he is agreeable to private pay cabulance/[employer]elchair Van. Pt son denies any other needs at this time. PUBLIC HEALTH SANITARIAN TECHNICIAN to continue to follow. Plan: Anticipated discharge tomorrow morning 05/17/2017 for a Hospice intake at 10:00am at [facility] via [facility]. No other discharge needs identified at this time. PUBLIC HEALTH SANITARIAN TECHNICIAN to continue to follow. CHUCKY Haider
--- NOTE | 2017-05-16 22:22 | NUR ---
Comfort: Pt. denies pain. Complains of mild SOB, however refuses oxygen for comfort. No overt signs or symptoms of distress. Has refused all scheduled medications thus far this shift. Refuses nearly all care activities. Refuses turning and repositioning. Suction at bedside, pt. using independently for secretions. Will continue to monitor.
[2017-05-16 22:57] VITALS: BP 176/91; PULSE 84; RESP 20; O2SAT 95
== END 2017-05-17 01:25 | disposition admitted as inpatient to this hospital (09) | DRG 189 ==
LOC: SED 18:39 → PCC 21:31
PROVIDERS: ADMIT Hospitalist; ATTEND Internal Medicine
DX: J96.01 Acute respiratory failure with hypoxia (principal); J69.0 Pneumonitis due to inhalation of food and vomit; I24.8 Other forms of acute ischemic heart disease; I42.9 Cardiomyopathy, unspecified; G72.41 Inclusion body myositis [IBM]; K22.2 Esophageal obstruction; I44.1 Atrioventricular block, second degree